=== PATIENT | male | born 1980 | race Caucasian/White ===

== ENCOUNTER 2019-07-26 11:49 | Observation (INO) | payer MEDICAID, SELFPAY ==
[2019-07-26] VITALS (10 sets, daily range): BP systolic 137–158; BP diastolic 78–109; PULSE 72–107; RESP 14–21; TEMP 36.6–36.8; O2SAT 93–96; BMI 40.3
--- NOTE | 2019-07-26 12:38 | USR_ITS ---
PROCEDURE INFORMATION: Exam: US Duplex Left Lower Extremity Veins, Limited Exam date and time: 07/26/2019 12:41 PM Age: 39 years old Clinical indication: Pain; Swelling (edema) of limb; Lower extremity, left; Leg, lower; Additional info: Swelling/pain TECHNIQUE: Imaging protocol: Real-time Duplex ultrasound of the Left Lower Extremity with 2-D santoro scale, color Doppler flow and spectral waveform analysis with image documentation. Limited exam focused on the left lower extremity veins. COMPARISON: No relevant prior studies available. FINDINGS: Left deep veins: Hypoechoic occlusive thrombus in the femoral, popliteal and peroneal veins. Age uncertain but could be subacute to acute. Left superficial veins: Unremarkable. Saphenous vein is patent without thrombus. Soft tissues: Unremarkable. US/CV venous duplex [facility] [id number] IMPRESSION: Hypoechoic occlusive thrombus in the femoral, popliteal and peroneal veins. Age uncertain but some could be subacute to acute. Addendum: Reports are labeled left, images labeled right.
--- NOTE | 2019-07-26 12:40 | CTR_ITS ---
PROCEDURE INFORMATION: Exam: CT Angiography Chest With Contrast Exam date and time: 07/26/2019 12:57 PM Age: 39 years old Clinical indication: Shortness of breath; Patient HX: HX of dvt and pe w recent med change now w lle pain and swelling with SOB; Additional info: Dyspnea, history dvt TECHNIQUE: Imaging protocol: Computed tomographic angiography of the chest with intravenous contrast. 3D rendering: MIP and/or 3D reconstructed images were created by the technologist. Radiation optimization: All CT scans at this facility use at least one of these dose optimization techniques: automated exposure control; mA and/or kV adjustment per patient size (includes targeted exams where dose is matched to clinical indication); or iterative reconstruction. Contrast material: OMNI 350; Contrast volume: 150 ml; Contrast route: 18G; COMPARISON: CTA Chest[place]ulmonary [place] [id number] 01/12/2019 9:53 PM RADIATION DOSE METRICS: Total DLP: 1258.4 mGy-cm FINDINGS: Pulmonary arteries: Apparent new (since 01/12/2019) PE right upper lobe (series 4, axial image 145). Chronic appearing right lung base PE, relatively unchanged. Chronic appearing left lung PE, stable or slightly improved. Aorta: Unremarkable. No aortic aneurysm. No aortic dissection. Lungs: 7 mm noncalcified subpleural nodule right lower lobe posteriorly is smaller, now measuring 5.5 mm. No acute infiltrate. Pleural space: Unremarkable. No pneumothorax. No pleural effusion. Heart: Unremarkable. No cardiomegaly. No pericardial effusion. Lymph nodes: Unremarkable. No enlarged lymph nodes. Bones/joints: Unremarkable. No acute fracture. Soft tissues: Unremarkable. CT/CT angio chest PE protcl [id number] IMPRESSION: 1.) Apparent new (since 01/12/2019) PE right upper lobe (series 4, axial image 145). Chronic appearing right lung base PE, relatively unchanged. Chronic appearing left lung PE, stable or slightly improved. Radiation Dose CTDIVOL = (mGy): DLP = 1258.4 (mGy-cm)
[2019-07-26 13:01] LABS: Basophils # 0.1 10^3/uL (0.0-0.1); Basophils % 0.8 %; Eosinophils # 0.2 10^3/uL (0.0-0.8); Eosinophils % 1.8 %; Hematocrit 45.7 % (42.0-52.0); Hemoglobin 14.9 g/dL (11.7-16.6); Lymphocytes # 2.1 10^3/uL (0.8-4.8); Lymphocytes % 22.8 %; Mean Corpuscular HGB Conc 32.6 g/dL (30.0-36.0); Mean Corpuscular Hemoglobin 28.4 pg (28.0-34.0); Mean Corpuscular Volume 87.2 fL (80-94); Mean Platelet Volume 9.7 fL (7.4-10.4); Monocytes # 0.6 10^3/uL (0.2-0.9); Monocytes % 6.8 %; Neutrophils # 6.2 10^3/uL (1.8-7.7); Neutrophils % 67.5 %; Nucleated Red Blood Cells % 0 %; Platelet Count 226 10^3/cmm (130-400); Red Blood Count 5.24 10^6/uL (4.1-5.3); Red Cell Distribution Width 12.7 % (12.1-15.1); White Blood Count 9.2 10^3/uL (4.0-10.0)
[2019-07-26 13:11] LABS: INR 0.99 (0.8-1.2)
[2019-07-26 13:16] LABS: Alanine Aminotransferase 25 U/L (0-41); Albumin Level 4.1 g/dL (3.5-5.2); Alkaline Phosphatase 90 IU/L (40-130); Anion Gap 18.4 (5-19); Aspartate Amino Transferase 13 U/L (0-40); Blood Urea Nitrogen 14 mg/dL (6-20); Calcium 8.9 mg/dL (8.5-10.5); Carbon Dioxide 25 mmol/L (22-29); Chloride 92 mmol/L (98-107); Globulin 2.9 g/dL (1.3-4.6); Glomerular Filtration Rate 83.2 mL/min (90-130); Glucose 491 mg/dL (65-115); Osmolality Calculated 290 mOsm/kg (285-295); Potassium 4.4 mmol/L (3.5-5.1); Sodium 131 mmol/L (136-145); Total Bilirubin 0.4 mg/dL (0.15-1.2)
[2019-07-26 13:21] LABS: D Dimer 5.91 ug/mIFEU (0-0.59)
[2019-07-26] MEDS: iohexol 350 mg/mL 100 mL Btl IV (13:53)
--- NOTE | 2019-07-26 13:55 | ED_ITS ---
HPI - Extremity Problem General: Chief complaint: Extremity Problem,Nontraumatic Stated complaint: L leg swelling/pain. Hx DVT Time Seen by Provider: 07/26/19 12:38 History of Present Illness: HPI Narrative: Mr. Chaparro is a nice 39-year-old male who comes in stating that he is having left leg pain and shortness of breath with exertion. The patient has a history of DVTs and PEs. He states approximately 1-1/2 to 2 weeks ago he was bridged from Eliquis to Coumadin and is now on 5 mg of Coumadin daily. He has not had his INR checked up to this point. Patient states he had to switch because he lost his insurance. He states he always has some swelling in his legs but the discomfort in the left leg is new. He denies any other symptoms at this time. Associated symptoms: Deny chest pain, fever(s) or rash Review of Systems Const: Denies: fever(s), chills, body aches, fatigue, malaise, night sweats or diaphoresis Eyes: Denies: change in vision, blurry vision or blind spots ENMT: Denies: throat pain, odynophagia, hoarseness, ear or mastoid pain, ear discharge, change in hearing or nasal discharge Card: Denies: chest pain, palpitations, irregular heart rhythm, lightheadedness, syncope, pre-syncope, dyspnea on exertion or orthopnea Resp: Reports: dyspnea; Denies: productive cough, non-productive cough, wheezing, hemoptysis or chest congestion GI: Denies: abdominal pain, nausea, vomiting, hematemesis, coffee ground emesis, heartburn, diarrhea, constipation, GI cramping, hematochezia or melena : Denies: flank pain, dysuria, urinary frequency, urinary urgency, oliguria, urinary incontinence or hematuria Musc: Reports: extremity pain; Denies: neck pain, back pain, extremity swelling, joint pain, joint swelling, joint redness, joint warmth or joint stiffness Skin/Breast: Denies: rash, pruritus, erythema, skin tenderness or jaundice Neuro: Denies: headache(s), numbness in extremities, weakness in extremities, sensory changes, lack of coordination, difficulty walking, dizziness, vertigo, confusion or Slurred speech present Endo: Denies: polyuria, polydipsia, tired all the time, cold intolerance, excessive sweating, flushing, hot flashes or heat intolerance Dawit/Lymph: Denies: easy bruising, easy bleeding, petechiae, purpura or enlarged lymph nodes All/Imm: Denies: urticaria, throat swelling, tongue swelling, facial swelling or acute wheezing PFSH ED PFSH: Medical History Acute pulmonary embolism 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 SOB (shortness of breath) Surgical History H/O lymph node excision History of angioplasty of vein Family History Other Cancer Heart disease Social History Smoking and tobacco status: current every day smoker cigarettes Packs smoked per day: 0.25 Years cigarettes smoked: 21 Alcohol intake: current Alcohol intake frequency: few times a month Current occupational status: employed History of recent travel: No Current gender identity: Male Physical Exam Const: COMMON NORMALS: no acute distress, patient oriented x3, no limitations, healthy appearing and well nourished EXAM LIMITATIONS: no altered mental status GENERAL APPEARANCE: cooperative, well kempt and well developed HENMT: COMMON NORMALS: normocephalic, atraumatic, hearing grossly normal bilaterally, external ears normal, EAC's normal, Normal external nose present and moist oral mucous membranes HEAD & SCALP: normal to inspection, normocephalic and atraumatic FACE & SINUS: normal facial exam and face symmetric NOSE: Normal external nose present and Normal nares present EXTERNAL EAR: Yes external ears normal EXTERNAL AUDITORY CANAL: EAC's normal MOUTH: Normal oral and palatal mucosa present, lip normal and tongue normal Eye: COMMON NORMALS: Equal, round and reactive pupils present, EOMs intact bilaterally, conjunctivae normal and no scleral icterus GENERAL EYE: appearance normal, both eyes and all related structures ALIGNMENT: Yes alignment normal PERIORBITAL: periorbital findings normal EYELID: eyelids normal CONJUNCTIVA: Yes conjunctivae normal SCLERA: sclerae normal PUPIL: Yes Equal, round and reactive pupils present Neck/C-Spine: COMMON NORMALS: full ROM, no lymphadenopathy, supple, no meningeal signs and no JVD GENERAL: Yes normal visual inspection and Yes trachea midline CERVICAL SPINE: Yes cervical ROM normal Chest: COMMONS NORMALS: normal inspection of the chest and normal palpation of entire chest wall Resp: COMMON NORMALS: normal respiratory effort, No retractions, No use of accessory muscles and clear to auscultation bilaterally EFFORT & INSPECTION: Yes able to speak in complete sentences AUSCULTATION: clear to auscultation bilaterally, no crackles, no rales, no rhonchi and no wheezes Cardio: COMMON NORMALS: no JVD, regular rate, regular rhythm, S1 normal heart sound present, S2 normal heart sound present, No gallops present (Cardio), No clicks present (Cardio), No murmurs present (Cardio) and No rub (Cardio) RATE: regular rate RHYTHM: regular rhythm HEART SOUNDS: S1 normal heart sound present, S2 normal heart sound present, no click, no gallops, no murmurs and no rubs GI: COMMON NORMALS: Soft to palpation, non-tender, No hepatosplenomegaly present and no masses PALPATION: Yes Soft to palpation, No Tenderness to palpation present (GI), No Guarding due to palpation present (GI), No Rigid due to palpation, Yes No hepatosplenomegaly present, No Hernia present, No Palpable mass present and No Pulsatile mass present : COMMON NORMALS: Yes no CVA tenderness BLADDER/KIDNEY EXAM: Yes no CVA tenderness Back/Pelvis: COMMON NORMALS: no CVA tenderness, thoracic and lumbar spine normal to inspection, no thoracic nor lumbar tenderness and thoraco-lumbar ROM normal Extremity: COMMON NORMALS: normal to inspection, full ROM, capillary refill normal, no joint enlargement, no clubbing, cyanosis or edema and no calf tenderness Neuro: COMMON NORMALS: patient oriented x3, CN's II-XII intact bilaterally, moves all extremities, no focal motor deficits and no sensory deficits noted MENINGEAL SIGNS: Yes no meningeal signs SPEECH: speech normal Psych: COMMON NORMALS: mental status grossly normal, Normal thought process present, cooperative, normal affect, speech normal and activity/motor behavior normal APPEARANCE: Yes well kempt SPEECH: Yes normal speech THOUGHT PROCESS: Normal thought process present Skin: COMMON NORMALS: no rashes or lesions noted, turgor normal, no jaundice, no petechiae and no mottling GENERAL SKIN EXAM: no rashes or lesions noted and turgor normal Course Vital Signs: Vital signs: Vital Signs Temperature 97.8 F 07/26/19 12:30 Pulse Rate 89 07/26/19 16:04 Respiratory Rate 16 07/26/19 16:04 Blood Pressure 156/106 07/26/19 16:04 Pulse Oximetry 95 07/26/19 12:30 MDM - Extremity (Nontraumatic) MDM Narrative: Medical decision making narrative: Mr. Chaparro is a 39-year-old male who comes in with a complaint of shortness of breath with exertion and left lower extremity pain. He has a new PE and DVT as well. He is a difficult historian but he changed from Eliquis to Coumadin and he has not been compliant in follow-up for his INR monitoring. He thinks he has Lovenox at home and he th inks he has an appointment for to follow-up but this is not certain. With evidence of right ventricular strain I did discuss the case with Dr. Saini the rehabilitation program coordinator at [facility] and based upon review she does not believe he is a candidate for systemic TPA or catheter directed TPA. She states though his findings of right ventricular strain are concerning and he needs to be optimized on Coumadin. 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 The case was reviewed with Dr. Cha and she was gracious enough to accept the patient she will come evaluate him. Lab Data: Attestation: I reviewed the patient's lab results. Labs: Lab Results 07/26/19 07/26/19 07/26/19 Range/Units 12:54 12:54 12:54 WBC 9.2 (4.0-10.0) 10^3/ uL RBC 5.24 (4.1-5.3) 10^6/u L Hgb 14.9 (11.7-16.6) g/dL Hct 45.7 (42.0-52.0) % MCV 87.2 (80-94) fL MCH 28.4 (28.0-34.0) pg MCHC 32.6 (30.0-36.0) g/dL RDW 12.7 (12.1-15.1) % Plt Count 226 (130-400) 10^3/c mm MPV 9.7 (7.4-10.4) fL Neut % (Auto) 67.5 % Lymph % (Auto) 22.8 % [place] % (Auto) 6.8 % Eos % (Auto) 1.8 % Baso % (Auto) 0.8 % Neut # (Auto) 6.2 (1.8-7.7) 10^3/u L Lymph # (Auto) 2.1 (0.8-4.8) 10^3/u L [place] # (Auto) 0.6 (0.2-0.9) 10^3/u L Eos # (Auto) 0.2 (0.0-0.8) 10^3/u L Baso # (Auto) 0.1 (0.0-0.1) 10^3/u L Nucleated RBC % (a uto) 0 % Nucleated RBCs # 0.0 /100WBC PT 13.40 H (10.5-13.3) SECO NDS INR 0.99 (0.8-1.2) D-Dimer 5.91 H (0-0.59) ug/mIFE U Sodium 131 L (136-145) mmol/L Potassium 4.4 (3.5-5.1) mmol/L Chloride 92 L (98-107) mmol/L Carbon Dioxide 25 (22-29) mmol/L Anion Gap 18.4 (5-19) BUN 14 (6-20) mg/dL Creatinine 1.0 (0.7-1.2) mg/dL GFR Calculation 83.2 L (90-130) mL/min Glucose 491 H (65-115) mg/dL Calculated Osmolal ity 290 (285-295) mOsm/k g Calcium 8.9 (8.5-10.5) mg/dL Total Bilirubin 0.4 (0.15-1.2) mg/dL AST 13 (0-40) U/L ALT 25 (0-41) U/L Alkaline Phosphata se 90 (40-130) IU/L Troponin T Baselin e (0-15) ng/mL Troponin T 120 Min [place] (0-15) ng/mL Delta Troponin T (0-10) ABS# NT-Pro-B Natriuret Pep (0-125) pg/mL Total Protein 7.0 (6.6-8.7) g/dL Albumin 4.1 (3.5-5.2) g/dL Globulin 2.9 (1.3-4.6) g/dL 07/26/19 07/26/19 07/26/19 Range/Units 12:54 12:54 15:06 WBC (4.0-10.0) 10^3/ uL RBC (4.1-5.3) 10^6/u L Hgb (11.7-16.6) g/dL Hct (42.0-52.0) % MCV (80-94) fL MCH (28.0-34.0) pg MCHC (30.0-36.0) g/dL RDW (12.1-15.1) % Plt Count (130-400) 10^3/c mm MPV (7.4-10.4) fL Neut % (Auto) % Lymph % (Auto) % [place] % (Auto) % Eos % (Auto) % Baso % (Auto) % Neut # (Auto) (1.8-7.7) 10^3/u L Lymph # (Auto) (0.8-4.8) 10^3/u L [place] # (Auto) (0.2-0.9) 10^3/u L Eos # (Auto) (0.0-0.8) 10^3/u L Baso # (Auto) (0.0-0.1) 10^3/u L Nucleated RBC % (a uto) % Nucleated RBCs # /100WBC PT (10.5-13.3) SECO NDS INR (0.8-1.2) D-Dimer (0-0.59) ug/mIFE U Sodium (136-145) mmol/L Potassium (3.5-5.1) mmol/L Chloride (98-107) mmol/L Carbon Dioxide (22-29) mmol/L Anion Gap (5-19) BUN (6-20) mg/dL Creatinine (0.7-1.2) mg/dL GFR Calculation (90-130) mL/min Glucose (65-115) mg/dL Calculated Osmolal ity (285-295) mOsm/k g Calcium (8.5-10.5) mg/dL Total Bilirubin (0.15-1.2) mg/dL AST (0-40) U/L ALT (0-41) U/L Alkaline Phosphata se (40-130) IU/L Troponin T Baselin e 6 (0-15) ng/mL Troponin T 120 Min [place] 6.00 (0-15) ng/mL Delta Troponin T 0 (0-10) ABS# NT-Pro-B Natriuret Pep 84 (0-125) pg/mL Total Protein (6.6-8.7) g/dL Albumin (3.5-5.2) g/dL Globulin (1.3-4.6) g/dL Imaging Data^: CTA Pulmonary Artery: Radiologist's impression: [place] [address] CT Scan Report Signed Patient: Uzile Chaparro Unit #: [id number] : 1980 Age/Sex: 39 / M ADM Date: 07/26/19 Loc: ER Room/Bed: Attending Dr: Ordering Provider/Ordering MD: America Gaona DO Date of Service: 07/26/19 Procedure(s): CT angio chest PE protcl [id number] Accession Number(s): [id number] Report Number: [id number] PROCEDURE INFORMATION: Exam: CT Angiography Chest With Contrast Exam date and time: 07/26/2019 12:57 PM Age: 39 years old Clinical indication: Shortness of breath; Patient HX: HX of dvt and pe w recent med change now w lle pain and swelling with SOB; Additional info: Dyspnea, history dvt TECHNIQUE: Imaging protocol: Computed tomographic angiography of the chest with intravenous contrast. 3D rendering: MIP and/or 3D reconstructed images were created by the technologist. Radiation optimization: All CT scans at this facility use at least one of these dose optimization techniques: automated exposure control; mA and/or kV adjustment per patient size (includes targeted exams where dose is matched to clinical indication); or iterative reconstruction. Contrast material: OMNI 350; Contrast volume: 150 ml; Contrast route: 18G; COMPARISON: CTA Chest-Pulmonary Emb 11500 01/12/2019 9:53 PM RADIATION DOSE METRICS: Total DLP: 1258.4 mGy-cm FINDINGS: Pulmonary arteries: Apparent new (since 01/12/2019) PE right upper lobe (series 4, axial image 145). Chronic appearing right lung base PE, relatively unchanged. Chronic appearing left lung PE, stable or slightly improved. Aorta: Unremarkable. No aortic aneurysm. No aortic dissection. Lungs: 7 mm noncalcified subpleural nodule right lower lobe posteriorly is smaller, now measuring 5.5 mm. No acute infiltrate. Pleural space: Unremarkable. No pneumothorax. No pleural effusion. Heart: Unremarkable. No cardiomegaly. No pericardial effusion. Lymph nodes: Unremarkable. No enlarged lymph nodes. Bones/joints: Unremarkable. No acute fracture. Soft tissues: Unremarkable. CT/CT angio chest PE protcl [id number] IMPRESSION: 1.) Apparent new (since 01/12/2019) PE right upper lobe (series 4, axial image 145). Chronic appearing right lung base PE, relatively unchanged. Chronic appearing left lung PE, stable or slightly improved. Radiation Dose CTDIVOL = (mGy): DLP = 1258.4 (mGy-cm) Dictated By: Yvon Fall MD Signed By: Yvon Fall MD Signed Date/Time: 07/26/191433 DD/ 1432 Ultrasound Echo: Radiologist's impression: [address] [address] Ultrasound Report Signed Patient: Uziel Chaparro Unit #: [id number] : 1980 Age/Sex: 39 / M ADM Date: 07/26/19 Loc: ER Room/Bed: Attending Dr: Ordering Provider/Ordering MD: America Gaona DO Date of Service: 07/26/19 Procedure(s): CV echo complete* [id number] Accession Number(s): [id number] Report Number: [id number] Uziel Chaparro Age: 39 Gender: M : 1980 Exam Date: 07/26/2019 14:50 Ordering Phys: America Gaona DO Technologist: Erin Bansal Exam Location: [facility] Indication: DYPSNEA BP: / HR: Rhythm: Sinus Technical Quality: Technically difficult study MEASUREMENTS (Male / Female) Normal Values 2D ECHO LV Diastolic Diameter PLAX 4.8 cm 4.2 - 5.9 / 3.9 - 5.3 cm LV Systolic Diameter PLAX 3.6 cm LV Chamber Size 3.5 cm IVS Diastolic Thickness 1.6 cm 0.6 - 1.0 / 0.6 - 0.9 cm IVS Systolic Thickness 2.1 cm LVPW Diastolic Thickness 1.0 cm 0.6 - 1.0 / 0.6 - 0.9 cm LVPW Systolic Thickness 1.6 cm RV Chamber Size 2.6 cm LVOT Diameter 2.0 cm LV Ejection Fraction 2D Teich 49.0 % LA Diameter 4.0 cm LA Width 3.0 cm LA Height 5.3 cm RA Width 2.8 cm RA Height 4.9 cm Aorta at Sinotubular Diameter 2.7 cm M-MODE LV Diastolic Diameter MM 6.2 cm 4.2 - 5.9 / 3.9 - 5.3 cm LV Systolic Diameter MM 4.7 cm LV Ejection Fraction MM Teich 47.9 % IVS Diastolic Thickness MM 1.1 cm 0.6 - 1.0 / 0.6 - 0.9 cm IVS Systolic Thickness MM 1.7 cm LVPW Diastolic Thickness MM 1.5 cm 0.6 - 1.0 / 0.6 - 0.9 cm LVPW Systolic Thickness MM 1.6 cm Aortic Annulus Diameter 3.9 cm LA Ao Ratio MM 1.0 MV E Point Septal Separation 0.8 cm DOPPLER AV Peak Velocity 102.0 cm/s LVOT Peak Velocity 95.0 cm/s AV Area Cont Eq vti 3.4 cm squared AV Area Cont Eq pk 3.0 cm squared MV Area PHT 3.3 cm squared Mitral E to A Ratio 1.0 MV E' Velocity 16.0 cm/s Mitral E to MV E' Ratio 3.7 Mitral E to LV E' Lateral Ratio 3.1 Mitral E to LV E' Septal Ratio 4.5 TV Peak E Velocity 52.0 cm/s Right Atrial Pressure 8.0 mmHg PV Peak Velocity 79.0 cm/s RV Acceleration Time 0.1 s RV Ejection Time 0.3 s RV AcT/ET 0.2 FINDINGS Left Ventricle Normal left ventricular size, systolic function and wall thickness, with no regional wall motion abnormalities. Normal left ventricular wall thickness. Diastolic dysfunction grade I. Right Ventricle The right ventricle is enarlged measuring more than 2.6cm in transverse diameter (>50% LV) with evidence of hypokinesesis and RV strain. Right Atrium The right atrium isdilated. IVC phasicity is absent. Left Atrium The left atrium is normal in size. Mitral Valve Structurally normal mitral valve without significant stenosis or prolapse. There is no mitral regurgitation. Aortic Valve Structurally normal aortic valve without significant sclerosis or stenosis. There is no aortic regurgitation. Tricuspid Valve Structurally normal tricuspid valve without significant stenosis or regurgitation. Pulmonary artery systolic pressure could not be accurately determined. Pulmonic Valve Structurally normal pulmonic valve without significant stenosis. There is no pulmonic regurgitation. Pericardium Normal pericardium without effusion. Aorta Normal ascending aorta dimension. CONCLUSIONS Normal left ventricular size and function. Diastolic dysfunction grade I. Right atrial enlargement. RV strain apparent with RV enlargement and hypokinesis. Structurally normal mitral aortic and tricuspid valves. Pulmonary pressures not able to be accurately estimated. Dr. Arvind Hussein MD (Electronically Signed) Final Date: 26 Jul 2019 15:59 S EKG Data^: EKG 1: Attestation: I personally reviewed and interpreted this EKG as follows: EKG interpretation date: 07/26/19 EKG interpretation time: 14:25 Interpretation: Normal sinus rhythm at 88 beats a minute, no acute ST or T wave changes. Discharge Plan Discharge Patient Disposition: Placed in Observation Clinical Impression: Pulmonary embolism, DVT (deep venous thrombosis) Condition: Stable Prescriptions: No Action atorvastatin 20 mg tablet 20 mg PO DAILY RF: 0 lisinopril 5 mg tablet 5 mg PO DAILY RF: 0 docusate sodium 100 mg tablet 100 mg PO DAILY RF: 0 warfarin 5 mg Tablet 5 mg PO DAILY RF: 0 Referrals: Edouard Manzano MD [Primary Care Provider] - Coding Level of Care Code ED Guidance Director for Chg Fwd Exam Comprehensive
--- NOTE | 2019-07-26 13:57 | ECG_ITS ---
Measurements Intervals [place] Rate: 82 P: 57 MS: 150 QRS: -3 QRSD: 97 T: 30 QT: 369 QTc: 433 SINUS RHYTHM No previous ECG available for comparison Electronically Signed On 07-27-2019 10:32:24 CDT by Arvind Hussein MD [email or web address]
--- NOTE | 2019-07-26 14:27 | USCV_ITS ---
Uziel Chaparro Age: 39 Gender: M : 1980 Exam Date: 07/26/2019 14:50 Ordering Phys: America Gaona DO Technologist: Erin Bansal [place] [facility] [place]: DYPSNEA BP: / HR: Rhythm: Sinus Technical Quality: Technically difficult study MEASUREMENTS (Male / Female) Normal Values 2D ECHO LV Diastolic Diameter PLAX 4.8 cm 4.2 - 5.9 / 3.9 - 5.3 cm LV Systolic Diameter PLAX 3.6 cm LV Chamber Size 3.5 cm IVS Diastolic Thickness 1.6 cm 0.6 - 1.0 / 0.6 - 0.9 cm IVS Systolic Thickness 2.1 cm LVPW Diastolic Thickness 1.0 cm 0.6 - 1.0 / 0.6 - 0.9 cm LVPW Systolic Thickness 1.6 cm RV Chamber Size 2.6 cm LVOT Diameter 2.0 cm LV Ejection Fraction 2D Teich 49.0 % LA Diameter 4.0 cm LA Width 3.0 cm LA Height 5.3 cm RA Width 2.8 cm RA Height 4.9 cm Aorta at Sinotubular Diameter 2.7 cm M-MODE LV Diastolic Diameter MM 6.2 cm 4.2 - 5.9 / 3.9 - 5.3 cm LV Systolic Diameter MM 4.7 cm LV Ejection Fraction MM Teich 47.9 % IVS Diastolic Thickness MM 1.1 cm 0.6 - 1.0 / 0.6 - 0.9 cm IVS Systolic Thickness MM 1.7 cm LVPW Diastolic Thickness MM 1.5 cm 0.6 - 1.0 / 0.6 - 0.9 cm LVPW Systolic Thickness MM 1.6 cm Aortic Annulus Diameter 3.9 cm LA Ao Ratio MM 1.0 MV E Point Septal Separation 0.8 cm DOPPLER AV Peak Velocity 102.0 cm/s LVOT Peak Velocity 95.0 cm/s AV Area Cont Eq vti 3.4 cm squared AV Area Cont Eq pk 3.0 cm squared MV Area PHT 3.3 cm squared Mitral E to A Ratio 1.0 MV E' Velocity 16.0 cm/s Mitral E to MV E' Ratio 3.7 Mitral E to LV E' Lateral Ratio 3.1 Mitral E to LV E' Septal Ratio 4.5 TV Peak E Velocity 52.0 cm/s Right Atrial Pressure 8.0 mmHg PV Peak Velocity 79.0 cm/s RV Acceleration Time 0.1 s RV Ejection Time 0.3 s RV AcT/ET 0.2 FINDINGS Left Ventricle Normal left ventricular size, systolic function and wall thickness, with no regional wall motion abnormalities. Normal left ventricular wall thickness. Diastolic dysfunction grade I. Right Ventricle The right ventricle is enarlged measuring more than 2.6cm in transverse diameter (>50% LV) with evidence of hypokinesesis and RV strain. Right Atrium The right atrium isdilated. IVC phasicity is absent. Left Atrium The left atrium is normal in size. Mitral Valve Structurally normal mitral valve without significant stenosis or prolapse. There is no mitral regurgitation. Aortic Valve Structurally normal aortic valve without significant sclerosis or stenosis. There is no aortic regurgitation. Tricuspid Valve Structurally normal tricuspid valve without significant stenosis or regurgitation. Pulmonary artery systolic pressure could not be accurately determined. Pulmonic Valve Structurally normal pulmonic valve without significant stenosis. There is no pulmonic regurgitation. Pericardium Normal pericardium without effusion. Aorta Normal ascending aorta dimension. CONCLUSIONS Normal left ventricular size and function. Diastolic dysfunction grade I. Right atrial enlargement. RV strain apparent with RV enlargement and hypokinesis. Structurally normal mitral aortic and tricuspid valves. Pulmonary pressures not able to be accurately estimated. Dr. Arvind Hussein MD (Electronically Signed) Final Date: 26 Jul 2019 15:59 S
[2019-07-26 14:38] LABS: Troponin(5th) Baseline 6 ng/mL (0-15)
--- NOTE | 2019-07-26 14:42 | PC.NURSE ---
Ultrasound at bedside
[2019-07-26 14:47] LABS: NT Pro B Type Natriuretic Pept 84 pg/mL (0-125)
[2019-07-26] MEDS: enoxaparin 30 mg/0.3 mL Syringe SUBCUT (15:25)
[2019-07-26] MEDS: enoxaparin 120 mg/0.8 mL Syringe SUBCUT (15:25)
[2019-07-26 15:30] LABS: Troponin 5 2HR Delta 0 ABS# (0-10)
[2019-07-26] MEDS: HYDROcodone-acetaminophen 5-325 mg Tablet 1 TAB PO (15:37)
--- NOTE | 2019-07-26 19:06 | PM.HP ---
Providers/Chief Complaint Admitting Physician: Gina Cha MD Primary Care Provider: Edouard Manzano MD Chief Complaint: Pulmonary Edema; DVT History of Present Illness Uziel Chaparro is a 39 year old male with PMHx of HTN, NIDDM type II, PE and prior LLE DVT s/p thrombolysis, Morbid obesity, Chronic smoker, presents with complaints of shortness of breath, left lower extremity pain and swelling that has been ongoing for the past several days. 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 When he symptoms started he had suspicion that he had a blood clot as he has had previous history of this. He reports being on Coumadin for anticoagulation though compliance is questionable. He has a rather complicated history of VTE, initially diagnosed with PE and DVT in 04/2018 during which time he underwent thrombectomy while in [place]. 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 Earlier today he drove from [place] for about 6 to 7 hours and came directly to the hospital. He got a little bit more concerned when he developed shortness of breath which is a new symptom for him. He has had a difficult history with anticoagulation per his report. Had initially been on Coumadin then was bridged to Eliquis which upon losing his insurance coverage she could no longer afford so was then transition back to Coumadin. He has a difficult time complying with diet restrictions and with his job is unable to get his INR regularly checked. He reports taking a 5 mg dose daily typically around 8:30 PM, last dose was taken yesterday. INR today 0.99. He continues to be a smoker, half a pack a day. He denies any alcohol use. Unclear etiology for hypercoagulability, had negative work-up done in January 2019 which was his last admission to our facility for the same. He followed up with Dr. Castellanos in March 2019 at which point he was to continue Eliquis, compression stocking use and follow-up in 3 months. His previous echo in January showed moderate pulmonary hypertension and he was to have follow-up imaging to monitor this. He is not oxygen dependent at baseline. Has had a chronic non-productive cough, denies fever/chills, abdominal pain, blood in his urine or stool, recent trauma or fall. He would prefer to resume Eliquis but cannot afford it at this time so is agreeable to bridging with therapeutic Lovenox and Coumadin. Has received his first dose of Lovenox in the ER. Other work-up is unremarkable including CBC, chemistry other than hyponatremia with a sodium of 131 and hyperglycemia with a blood sugar of 491. Last A1c in January was 7.0 and patient is not on any anti-hyperglycemic agents. D-dimer is elevated at 5.91. Imaging shows new right upper lobe PE with chronic appearing left-sided and right lower lobe PEs. Echo shows evidence of right ventricular heart strain. Venous duplex shows extensive occlusive thrombus involving femoral, popliteal and peroneal veins on the left, superficial veins appears unremarkable. He is resting on the stretcher in the ER during my evaluation. Vital signs are stable, he is currently requiring 2 L NC. He has been admitted to initiate bridging anticoagulation and to monitor respiratory status in light of new oxygen requirement and new PE, DVT. Review of Systems Const: Denies: fever(s) or chills Eyes: Denies: change in vision ENMT: Denies: odynophagia Card: Reports: swelling of feet/ankles (LLE > R) and leg pain with exertion (LLE); Denies: chest pain or lightheadedness Resp: Reports: dyspnea and non-productive cough GI: Denies: abdominal pain, nausea, vomiting, hematemesis or hematochezia : Denies: dysuria or urinary frequency Musc: Reports: extremity pain (LLE), extremity swelling (LLE) and muscle cramps (LLE); Denies: back pain Skin/Breast: Denies: rash Neuro: Reports: difficulty walking; Denies: numbness in extremities or weakness in extremities Psych: Denies: anxiety Medications/Allergies Home Medications Medication Instructions Recorded Confirmed Last Taken Type atorvastatin 20 mg tablet 20 mg PO DAILY 03/24/19 07/26/19 Unknown History docusate sodium 100 mg tablet 100 mg PO DAILY 03/24/19 07/26/19 07/25/19 History lisinopril 5 mg tablet 5 mg PO DAILY 03/24/19 07/26/19 07/26/19 History warfarin 5 mg PO DAILY 07/26/19 07/26/19 07/25/19 History Allergies Allergy/AdvReac Type Severity Reaction Status Date / Time nickel Allergy ADR-Itching Verified 07/26/19 12:34 rofecoxib [From Vioxx] Allergy Unknown Verified 03/25/19 11:55 PFSH Acute PFSH: Medical History (Updated 07/26/19 @ 19:29 by Gina Cha MD) Acute pulmonary embolism 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 Hypertension Morbid obesity Non-insulin dependent diabetes mellitus SOB (shortness of breath) Surgical History (Updated 07/26/19 @ 19:11 by Gina Cha MD) H/O lymph node excision History of angioplasty of vein Left lower extremity Family History Other Cancer Heart disease Social History (Updated 07/26/19 @ 19:16 by Gina Cha MD) Smoking and tobacco status: current every day smoker cigarettes Packs smoked per day: 0.5 Years cigarettes smoked: 21 Alcohol intake: current Alcohol intake frequency: few times a month Substance/Drug Use: former Date of last use: 03/2017 Household members: spouse Marital status: Current occupational status: employed 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 History of recent travel: No Current gender identity: Male Vitals/I&O/Wt Last Vital Signs Temp 97.8 F 07/26/19 12:30 Pulse 86 07/26/19 18:33 Resp 18 07/26/19 18:33 BP 153/97 07/26/19 18:33 Pulse Ox 95 07/26/19 18:33 Weight last 48 hrs Weight 154.221 kg Physical Exam Const: COMMON NORMALS: no acute distress, patient oriented x3 and alert GENERAL APPEARANCE: cooperative and comfortable; not ill appearing NUTRITIONAL APPEARANCE: obese morbidly obese ORIENTATION/CONSCIOUSNESS: Yes awake HENMT: COMMON NORMALS: normocephalic, atraumatic, hearing grossly normal bilaterally and moist oral mucous membranes HEAD & SCALP: normocephalic and atraumatic TEETH & GINGIVA: Yes poor dentition Eye: COMMON NORMALS: Equal, round and reactive pupils present, EOMs intact bilaterally and conjunctivae normal CONJUNCTIVA: Yes conjunctivae normal PUPIL: Yes Equal, round and reactive pupils present Neck/C-Spine: COMMON NORMALS: full ROM GENERAL: Yes normal visual inspection and Yes trachea midline OTHER: -short, thick neck Chest: CHEST: Yes Symmetrical chest wall rise Resp: COMMON NORMALS: normal respiratory effort, No retractions, No use of accessory muscles and clear to auscultation bilaterally EFFORT & INSPECTION: Yes able to speak in complete sentences, Yes symmetric chest movement and No tachypneic AUSCULTATION: clear to auscultation bilaterally OTHER: -on 2 L NC Cardio: COMMON NORMALS: regular rate, regular rhythm, S1 normal heart sound present, S2 normal heart sound present and No murmurs present (Cardio) RATE: regular rate RHYTHM: regular rhythm HEART SOUNDS: S1 normal heart sound present and S2 normal heart sound present GI: COMMON NORMALS: Normal to inspection, nondistended, normoactive bowel sounds present, Soft to palpation and non-tender INSPECTION: Yes central obesity PALPATION: Yes Soft to palpation Back/Pelvis: COMMON NORMALS: thoracic and lumbar spine normal to inspection Extremity: COMMON NORMALS: normal to inspection and full ROM GENERAL: Yes calf tenderness (LLE, + Vivian's sign) and Yes edema (LLE, non-pitting) Neuro: COMMON NORMALS: patient oriented x3, moves all extremities, no focal motor deficits and no sensory deficits noted Psych: COMMON NORMALS: mental status grossly normal, Normal thought process present, cooperative, normal affect and speech normal SPEECH: Yes normal speech THOUGHT PROCESS: Normal thought process present Skin: COMMON NORMALS: no rashes or lesions noted, no jaundice, no petechiae and no mottling GENERAL SKIN EXAM: no rashes or lesions noted Data : 07/26/19 12:54 07/26/19 12:54 A&P Assessment and plan (1) Pulmonary embolism: -Presented with shortness of breath, has prior history of PE status post thrombectomy on 04/2018 -Had initially been treated with Coumadin then bridged to Eliquis which she is unable to continue due to lack of insurance, reportedly has been trying to bridge from Eliquis to Coumadin. -Suspect non-compliance -CTA showing new PE in RUL, chronic appearing PE in right lung base (unchanged) and left lung (stable/slightly improved) -D-dimer-5.91, INR-0.99 -received therapeutic dose of Lovenox in ED, will continue this and bridge with coumadin -daily INR -does not need to stay in the hospital for entire bridging process as he has experience taking both medications -had a good response to Eliquis and is working on alternative insurance coverage to be able to resume this -Had hypercoagulable work-up done during admission in 01/2019 which was unremarkable -Risk factors for VTE include chronic smoking, morbid obesity, decreased mobility based on 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 Castellanos -based on job as logging truck driver has problem getting regular INR checks -supplemental oxygen as needed, monitor respiratory status Status: Acute Qualifiers: Acute cor pulmonale presence: with acute cor pulmonale Chronicity: acute Pulmonary embolism type: other Qualified Code(s): I26.09 - Other pulmonary embolism with acute cor pulmonale (2) DVT (deep venous thrombosis): -Has noted deep vein occlusive thrombus involving femoral, popliteal and peroneal veins. Superficial veins appear unremarkable - has prior history of DVT in the left lower extremity, has had thrombolysis done -Anticoagulation as noted above Status: Acute Qualifiers: Affected thrombotic vein of extremity: other lower extremity vein Chronicity: acute DVT location: lower extremity Laterality: left Qualified Code(s): I82.492 - Acute embolism and thrombosis of other specified deep vein of left lower extremity (3) Hypertension: -Continue to monitor vital signs -Resume ACEi Status: Chronic Qualifiers: Hypertension type: essential hypertension Qualified Code(s): I10 - Essential (primary) hypertension (4) Non-insulin dependent diabetes mellitus: -last A1c-7.0, order repeat -noted significant hyperglycemia, Accucheks, ISS, hypoglycemia precautions -consistent carb diet as tolerated Status: Chronic (5) Morbid obesity: -BMI-41 kg/m2 Status: Chronic Additional A&P Information -Chronic smoker -gentle IVF hydration -up with assist, fall precautions -DVT ppx not needed as on therapeutic lovenox -Dispo: home -Code status: FULL code Attestations Medical Necessity Statement*: Uziel Chaparro's hospital stay will be less than 2 midnights for management of acute on chronic PE, left lower extremity DVT with need for initiation of bridging anticoagulation and monitoring of respiratory status given oxygen requirement. Time Spent in Patient Care: Greater than 35 minutes (>than 50% of time spent in counselling and/or direct pt care on unit). Coding Level of Care Code Acute Field Map Technician for Chg Fwd Diagnoses Pulmonary embolism I26.09 Acute cor pulmonale presence: with acute cor pulmonale Chronicity: acute Pulmonary embolism type: other DVT (deep venous thrombosis) I82.492 Affected thrombotic vein of extremity: other lower extremity vein Chronicity: acute DVT location: lower extremity Laterality: left Hypertension I10 Hypertension type: essential hypertension Non-insulin dependent diabetes mellitus Morbid obesity E66.01
[2019-07-26 19:22] LABS: Troponin 5 6HR Delta 0 ng/L (0-12)
--- NOTE | 2019-07-26 19:46 | PC.NURSE ---
Patient received from ed via wheelchair. Patient able to ambulate to bed with standby assist. Mild to moderate pain reported to left leg/groin. Patient on the phone ordering food for delivery. Instructed patient on need for Lovenox and warfarin. Patient stated, I take my warfarin every night at 8:25 pm. Patient expressed understanding of need to be compliant with medications.
--- NOTE | 2019-07-26 19:57 | ECG_ITS ---
Measurements Intervals [place] Rate: 88 P: 50 MN: 147 QRS: 1 QRSD: 95 T: 29 QT: 352 QTc: 427 SINUS RHYTHM No previous ECG available for comparison Electronically Signed On 07-27-2019 10:35:12 CDT by Arvind Hussein MD [email or web address]
[2019-07-26 20:28] LABS: Glucose Point of Care 321 mg/dL (70-110)
[2019-07-26] MEDS: sodium chloride 0.9% 1,000 ML 75 ML IV (20:51)
[2019-07-26] MEDS: warfarin 5 mg Tablet PO (20:51)
[2019-07-27] MEDS: morphine 4 mg/mL SDV 1 mL 2 MG IVP ×2 (00:22→08:47)
[2019-07-27 02:39] LABS: Estmated Average Glucose 275; Hemoglobin A1C 11.2 % (4.0-6.0)
[2019-07-27] MEDS: enoxaparin 100 mg/mL Syringe 150 MG SUBCUT (03:34)
[2019-07-27 03:35] VITALS: BP 128/77; PULSE 88; RESP 20; TEMP 36.5; O2SAT 96
[2019-07-27 06:19] LABS: Basophils # 0.1 10^3/uL (0.0-0.1); Basophils % 0.6 %; Eosinophils # 0.2 10^3/uL (0.0-0.8); Eosinophils % 2.4 %; Hematocrit 42.4 % (42.0-52.0); Hemoglobin 13.8 g/dL (11.7-16.6); Lymphocytes % 36.6 %; Mean Corpuscular HGB Conc 32.5 g/dL (30.0-36.0); Mean Corpuscular Hemoglobin 28.2 pg (28.0-34.0); Mean Corpuscular Volume 86.7 fL (80-94); Mean Platelet Volume 9.7 fL (7.4-10.4); Monocytes # 0.6 10^3/uL (0.2-0.9); Monocytes % 7.1 %; Neutrophils # 4.3 10^3/uL (1.8-7.7); Neutrophils % 52.7 %; Nucleated Red Blood Cells % 0 %; Platelet Count 242 10^3/cmm (130-400); Red Blood Count 4.89 10^6/uL (4.1-5.3); Red Cell Distribution Width 12.8 % (12.1-15.1); White Blood Count 8.2 10^3/uL (4.0-10.0)
[2019-07-27 06:22] LABS: INR 1.02 (0.8-1.2)
[2019-07-27 06:32] LABS: Anion Gap 14.2 (5-19); Blood Urea Nitrogen 17 mg/dL (6-20); Calcium 9.2 mg/dL (8.5-10.5); Carbon Dioxide 28 mmol/L (22-29); Chloride 99 mmol/L (98-107); Glomerular Filtration Rate 83.2 mL/min (90-130); Glucose 315 mg/dL (65-115); Osmolality Calculated 292 mOsm/kg (285-295); Potassium 4.2 mmol/L (3.5-5.1); Sodium 137 mmol/L (136-145)
[2019-07-27 06:55] LABS: Glucose Point of Care 288 mg/dL (70-110)
[2019-07-27 07:29] VITALS: PULSE 83; O2SAT 91
[2019-07-27 08:00] VITALS: BP 117/80; PULSE 86; RESP 19; TEMP 36.7; O2SAT 94
[2019-07-27] MEDS: docusate sodium 100 mg Capsule PO (08:46)
[2019-07-27] MEDS: atorvastatin 40 mg Tablet 20 MG PO (08:46)
[2019-07-27 08:47] VITALS: RESP 15
[2019-07-27] MEDS: lisinopril 5 mg Tablet PO (08:47)
--- NOTE | 2019-07-27 09:09 | PC.CHAP ---
Pastoral Care Encounter/Spiritual Assessment Type of Contact [] Declined tractor mechanic apprentice visit [] Patient/Family/Request visit [] Outpatient visit [] Follow-up visit [] Physician referral [] Code/Alert [x] Routine visit [] Staff referral [] Actively dying [] Patient sleeping [] Family support [] [] Out of room [] Palliative care [] [] Receiving care in room [] Pre-surgical visit [] Trauma [] Long length of stay [] ICU visit [] Other: Relational/Emotional Strength [] Patient feels connected with others/family/visitors/staff [] Distress [] Loneliness/isolation [] Abandonment Spirituality of Patient [] Person of Karen [] Attends Oriental Orthodox of their Karen [] Believes in Prayer [] Reads Bible or Druze materials [] There are Spiritual issues to be addressed Delivery Technician Interventions [x] Prayer [] Active listening [] Non-anxious presence [] Spiritual/emotional support [] Crisis/trauma care [] Spiritual counseling [] Bereavement support [] Provided bereavement packet [] Provided Bible/devotional materials [] Provided toy/stuffed animal, coloring book to patient or family member [] Provided Communion [] Anointing/[place] [] Salvation [x] Completed spiritual assessment [] Other: Impact on Illness or Injury [] Angry [] Fearful [] Anxious [] Often cries [] Exhaustion [] Unable to work [] Unable to attend cheondoism [] Unable to walk/stand [] Unable to read [] Unable to drive [] Unable to eat/drink [] Unable to sleep [] Unable to be with family [] Patient intubated [] Other: Summary Patient resting well. Time spent with patient 10min
[2019-07-27] MEDS: sodium chloride 0.9% 1,000 ML 75 ML IV (10:11)
[2019-07-27 11:00] VITALS: BP 116/84; PULSE 85; RESP 16; TEMP 36.6; O2SAT 92
[2019-07-27 11:56] LABS: Glucose Point of Care 242 mg/dL (70-110)
[2019-07-27] MEDS: apixaban 5 mg Tablet PO (13:04)
--- NOTE | 2019-07-27 13:41 | P.DS_ITS ---
Discharge Providers Date of Admission: 07/26/19 17:48 Date of Discharge: July 27, 2019 Attending Provider at Admission: Gina Cha MD Attending Provider at Discharge: Gina Cha MD Primary Care Provider: Edouard Manzano MD Diagnoses at Discharge Discharge Diagnosis (1) Pulmonary embolism: Status: Acute Problem details: -Presented with shortness of breath, has prior history of PE status post thrombectomy on 04/2018 -Had initially been treated with Coumadin then bridged to Eliquis which she is unable to continue due to lack of insurance, reportedly has been trying to bridge from Eliquis to Coumadin. 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 Coumadin is not a good long-term option for the patient as he is unable to get INR checks and has difficulty complying with dietary restrictions. He has been resumed on Eliquis with $10 co-pay card provided and initial prescription sent to [facility]. 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 Superficial veins appear unremarkable - has prior history of DVT in the left lower extremity, has had thrombolysis done -Anticoagulation as noted above Qualifiers: Affected thrombotic vein of extremity: other lower extremity vein Chronicity: acute DVT location: lower extremity Laterality: left Qualified Code(s): I82.492 - Acute embolism and thrombosis of other specified deep vein of left lower extremity (3) Hypertension: Status: Chronic Problem details: -Continue to monitor vital signs -Continue ACEi Qualifiers: Hypertension type: essential hypertension Qualified Code(s): I10 - Essential (primary) hypertension (4) Non-insulin dependent diabetes mellitus: Status: Chronic Problem details: -poorly controlled, A1c-11.2 -noted significant hyperglycemia, Accucheks, ISS, hypoglycemia precautions -consistent carb diet as tolerated -has been unable to tolerate metformin in the past (significant diarrhea, abdominal pain, N/V); will initiate glipizide (cost issues) which PCP will need to titrate (5) Morbid obesity: Status: Chronic Problem details: -BMI-41 kg/m2 Other Information Additional DC diagnoses/information: -Chronic smoker Reason for Visit Reason for Visit: Reason For Visit: Pulmonary Edema; DVT Hospital Course Hospital Course: Patient was admitted to the cardiac stepdown unit and placed on telemetry monitoring. He initially required supplemental oxygen support but has since been weaned off and maintained on room air with no noted respiratory distress. He was noted to have acute on chronic PE and left lower extremity occlusive DVT. He was treated with therapeutic anticoagulation, on both Lovenox and Coumadin due to need for bridging with noted INR of 0.99 initially. INR today is 1.02. 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 He has been on Eliquis in the past but due to lack of insurance was unable to afford it any longer and was transitioned to Coumadin. He has difficulty not only with INR checks but also with complying with dietary restrictions. He has been provided with a $10 co-pay card and resumed on Eliquis per his preference. He is working on getting insurance through his . Eliquis provides a much better option particularly in terms of comp liance. He was also noted to have poorly controlled diabetes with an A1c of 11.2. 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 Weight loss is strongly encouraged and due to limited financial resources will be prescribed glipizide. He states that he has a glucometer and is encouraged to monitor his blood glucose at least once per day. He may require titration of his glipizide dose for more optimal glycemic control which can be followed up on by his primary care provider. He will also be referred to Dr. Castellanos particularly in light of recurrent PE. Smoking cessation is also strongly encouraged. I have provided some basic education on diabetes particularly in terms of nutrition. Patient will be discharged home this afternoon, prescription is sent to [facility] pharmacy to be picked up tomorrow and patient encouraged to activate co-pay card as soon as possible. In light of recurrent VTE patient will require lifelong anticoagulation. Discharge Summary: -Patient to follow-up with primary care physician within 1 week. He will require continued follow-up on anticoagulation and oral hypoglycemic medication titration -Patient to follow-up with Dr. Castellanos in 1 month Physical Exam Const: COMMON NORMALS: no acute distress, patient oriented x3 and alert GENERAL APPEARANCE: cooperative and comfortable; not ill appearing NUTRITIONAL APPEARANCE: obese morbidly obese ORIENTATION/CONSCIOUSNESS: Yes awake HENMT: COMMON NORMALS: normocephalic, atraumatic, hearing grossly normal bilaterally and moist oral mucous membranes HEAD & SCALP: normocephalic and atraumatic TEETH & GINGIVA: Yes poor dentition Eye: COMMON NORMALS: Equal, round and reactive pupils present, EOMs intact bilaterally and conjunctivae normal CONJUNCTIVA: Yes conjunctivae normal PUPIL: Yes Equal, round and reactive pupils present Neck/C-Spine: COMMON NORMALS: full ROM GENERAL: Yes normal visual inspection and Yes trachea midline OTHER: -short, thick neck Chest: CHEST: Yes Symmetrical chest wall rise Resp: COMMON NORMALS: normal respiratory effort, No retractions, No use of accessory muscles and clear to auscultation bilaterally EFFORT & INSPECTION: Yes able to speak in complete sentences, Yes symmetric chest movement and No tachypneic AUSCULTATION: clear to auscultation bilaterally OTHER: -on RA Cardio: COMMON NORMALS: regular rate, regular rhythm, S1 normal heart sound present, S2 normal heart sound present and No murmurs present (Cardio) RATE: regular rate RHYTHM: regular rhythm HEART SOUNDS: S1 normal heart sound present and S2 normal heart sound present GI: COMMON NORMALS: Normal to inspection, nondistended, normoactive bowel sounds present, Soft to palpation and non-tender INSPECTION: Yes central obesity PALPATION: Yes Soft to palpation Back/Pelvis: COMMON NORMALS: thoracic and lumbar spine normal to inspection Extremity: COMMON NORMALS: normal to inspection and full ROM GENERAL: Yes calf tenderness (LLE, + Vivian's sign) and Yes edema (LLE, non-pitting) Neuro: COMMON NORMALS: patient oriented x3, moves all extremities, no focal motor deficits and no sensory deficits noted SENSORIUM/ORIENTATION: Yes alert Psych: COMMON NORMALS: mental status grossly normal, Normal thought process present, cooperative, normal affect and speech normal SPEECH: Yes normal speech THOUGHT PROCESS: Normal thought process present Skin: COMMON NORMALS: no rashes or lesions noted, no jaundice, no petechiae and no mottling GENERAL SKIN EXAM: no rashes or lesions noted Discharge Data Data Completed and Pending: Completed Studies During Hospitalization Category Date Time Status CT angio chest PE protcl [id number] Stat Cat Scan 07/26/19 12:40 Completed CV echo complete* [id number] Stat Ultrasound 07/26/19 14:27 [place] [id number] Urgent Ultrasound 07/26/19 12:38 Completed Labs from last 24 hours 07/27/19 07/27/19 07/27/19 11:20 06:31 06:00 WBC RBC Hgb Hct MCV MCH MCHC RDW Plt Count MPV Neut % (Auto) Lymph % (Auto) [place] % (Auto) Eos % (Auto) Baso % (Auto) Neut # (Auto) Lymph # (Auto) [place] # (Auto) Eos # (Auto) Baso # (Auto) Nucleated RBC % (a uto) Nucleated RBCs # PT 13.70 H INR 1.02 Sodium Potassium Chloride Carbon Dioxide Anion Gap BUN Creatinine GFR Calculation Glucose POC Glucose 242 288 Estimat Average Gl ucose Hemoglobin A1c Calculated Osmolal ity Calcium Troponin I 6 Hour Troponin I Hi Sens Del Troponin T Baselin e Troponin T 120 Min [place] Delta Troponin T NT-Pro-B Natriuret Pep 07/27/19 07/27/19 07/26/19 06:00 06:00 20:25 WBC 8.2 RBC 4.89 Hgb 13.8 Hct 42.4 MCV 86.7 MCH 28.2 MCHC 32.5 RDW 12.8 Plt Count 242 MPV 9.7 Neut % (Auto) 52.7 Lymph % (Auto) 36.6 [place] % (Auto) 7.1 Eos % (Auto) 2.4 Baso % (Auto) 0.6 Neut # (Auto) 4.3 Lymph # (Auto) 3.0 [place] # (Auto) 0.6 Eos # (Auto) 0.2 Baso # (Auto) 0.1 Nucleated RBC % (a uto) 0 Nucleated RBCs # 0.0 PT INR Sodium 137 Potassium 4.2 Chloride 99 Carbon Dioxide 28 Anion Gap 14.2 BUN 17 Creatinine 1.0 GFR Calculation 83.2 L Glucose 315 H POC Glucose 321 Estimat Average Gl ucose Hemoglobin A1c Calculated Osmolal ity 292 Calcium 9.2 Troponin I 6 Hour Troponin I Hi Sens Del Troponin T Baselin e Troponin T 120 Min [place] Delta Troponin T NT-Pro-B Natriuret Pep 07/26/19 07/26/19 07/26/19 18:54 15:06 12:54 WBC RBC Hgb Hct MCV MCH MCHC RDW Plt Count MPV Neut % (Auto) Lymph % (Auto) [place] % (Auto) Eos % (Auto) Baso % (Auto) Neut # (Auto) Lymph # (Auto) [place] # (Auto) Eos # (Auto) Baso # (Auto) Nucleated RBC % (a uto) Nucleated RBCs # PT INR Sodium Potassium Chloride Carbon Dioxide Anion Gap BUN Creatinine GFR Calculation Glucose POC Glucose Estimat Average Gl ucose 275 Hemoglobin A1c 11.2 H Calculated Osmolal ity Calcium Troponin I 6 Hour 6.00 Troponin I Hi Sens Del 0 Troponin T Baselin e Troponin T 120 Min [place] 6.00 Delta Troponin T 0 NT-Pro-B Natriuret Pep 07/26/19 07/26/19 12:54 12:54 WBC RBC Hgb Hct MCV MCH MCHC RDW Plt Count MPV Neut % (Auto) Lymph % (Auto) [place] % (Auto) Eos % (Auto) Baso % (Auto) Neut # (Auto) Lymph # (Auto) [place] # (Auto) Eos # (Auto) Baso # (Auto) Nucleated RBC % (a uto) Nucleated RBCs # PT INR Sodium Potassium Chloride Carbon Dioxide Anion Gap BUN Creatinine GFR Calculation Glucose POC Glucose Estimat Average Gl ucose Hemoglobin A1c Calculated Osmolal ity Calcium Troponin I 6 Hour Troponin I Hi Sens Del Troponin T Baselin e 6 Troponin T 120 Min [place] Delta Troponin T NT-Pro-B Natriuret Pep 84 Vitals: Last Vital Signs Temp 97.8 F 07/27/19 11:00 Pulse 85 07/27/19 11:00 Resp 16 07/27/19 11:00 BP 116/84 07/27/19 11:00 Pulse Ox 92 07/27/19 11:00 Discharge Plan Discharge Patient Disposition: Home, Self-Care Condition: Stable Prescriptions: New Eliquis 5 mg Tablet 5 mg PO BID 30 Days Qty: 60 RF: 0 glipizide 2.5 mg tablet extended release 24hr 2.5 mg PO BID 30 Days Qty: 60 RF: 0 Continued atorvastatin 20 mg tablet 20 mg PO DAILY RF: 0 lisinopril 5 mg tablet 5 mg PO DAILY RF: 0 docusate sodium 100 mg tablet 100 mg PO DAILY RF: 0 Discontinued warfarin 5 mg Tablet 5 mg PO 2030 RF: 0 Discharge Orders: Discharge Order (Routine); Ordered 07/27/19 Ordered By: Gina Cah Referrals: Edouard Manzano MD [Primary Care Provider] - 4-7 days (Post hospital discharge follow up. Now uncontrolled diabetic, d/c on glipizide (cost issues, unable to tolerate metformin previously) and on Eliquis ($10 co-pay card provided)) Lety Castellanos MD [Physician] - 1 month (Follow up on acute on chronic PE, LLE DVT; on Eliquis.) Discharge Diet: Diabetic Discharge Activity: Increase activity as tolerated Patient Instructions: Type 2 Diabetes, Diabetes and Diet, Glipizide (By mouth), Apixaban (By mouth), Pulmonary Embolism (DC), Pulmonary Embolism (GEN), How to Stop Smoking (DC), How to Check Your Blood Sugar (DC), Deep Venous Thrombosis (DC), Deep Venous Thrombosis (GEN), Meal Planning with the Plate Model (DC), Quitting Smoking Activity Restrictions/Additional Instructions: -Please remember to activate co-pay card to continue to cover Eliquis -Smoking cessation recommended -Please monitor blood sugar at least once per day, keep a log for review with your primary care provider -Please refer to [employer] website (www.diabetes.org) for more information including nutrition, exercise -Please monitor for bleeding as you are taking blood thinners; and seek medical attention immediately if noted prolonged nosebleeding, blood in urine or stool, coughing up blood Discharge Attestations Time Spent in Discharge Care*: greater than 30 min Specific Discharge Activities: Specific discharge activities: educating patient, discussing with pcp/other providers, discussing with returned case inspector/social workers/dc planners, documenting/other paperwork and evaluating patient/reviewing data Time Spent in Smoking Cessation: Time spent discussing smoking cessation with patient: 3 to 10 minutes Details of Smoking Cessation Education: Patient counseled on need for smoking cessation particularly in light of recurrent VTE and with underlying poorly controlled diabetes and morbid obesity is at risk for multiple medical comorbidities. He reports that he is currently working on cutting down, currently smoking half a pack a day. Declines medication assistance at this time. Status at Discharge: Cognitive status at discharge: cognitively intact , Behavioral status at discharge: cooperative , Functional status at discharge: independent ambulation Overall status at discharge: patient is progressing back to baseline Quality Metrics Clinical Quality Measures During this hospital stay, did patient experience: VTE Contraindication to Overlap Therapy: Overlap treatment not indicated (On Eliquis) VTE Discharge Education: Education about anticoagulant therapy/Care Notes given, Medication side effects education and Follow-up arranged Deep Vein Thrombosis/Pulmonary Embolism Present on Admission: Yes Coding Level of Care Code Acute Animal [facility]eder for [facility] Fwd Diagnoses Pulmonary embolism I26.09 Acute cor pulmonale presence: with acute cor pulmonale Chronicity: acute Pulmonary embolism type: other DVT (deep venous thrombosis) I82.492 Affected thrombotic vein of extremity: other lower extremity vein Chronicity: acute DVT location: lower extremity Laterality: left Hypertension I10 Hypertension type: essential hypertension Non-insulin dependent diabetes mellitus Morbid obesity E66.01
[2019-07-27 13:50] VITALS: BP 116/84; PULSE 85; RESP 16; TEMP 36.6; O2SAT 92
--- NOTE | 2019-07-27 14:00 | PC.NURSE ---
pt given discharge instructions, verbalized an understanding. hand outs on diabetic management and food choices printed for pt education from [employer]. pt took eliquis coupon card with him upon discharge. iv removed, tip intact.
== END 2019-07-27 14:15 | disposition home or self-care (01) ==
LOC: ER 18:22 → CSU 18:23
PROVIDERS: Emergency Medicine; Admitting Provider Family Medicine; PCP Family Medicine; Visit Provider Family Medicine
DX: I26.09 Other pulmonary embolism with acute cor pulmonale (principal); I10 Essential (primary) hypertension; E66.01 Morbid (severe) obesity due to excess calories; Z68.41 Body mass index [BMI] 40.0-44.9, adult; E11.9 Type 2 diabetes mellitus without complications; Z86.718 Personal history of other venous thrombosis and embolism; Z79.01 Long term (current) use of anticoagulants
CPT/HCPCS: 12345; 36415; 36416; 71275; 80048; 80053; 82962; 83036; 83880; 84484; 85025; 85378; 85610; 93005; 93010; 93306; 93971; 96360; 96361; 96372; 96375; 99283; 99285; G0378; J1650; J1815; J2270; J7030; Q9967

== ENCOUNTER 2019-10-09 08:58 | Outpatient (CLI) | payer MEDICAID, SELFPAY ==
--- NOTE | 2019-10-09 08:45 | USCV_ITS ---
Uziel Chaparro Age: 39 Gender: M : 1980 Exam Date: 10/09/2019 09:20 Ordering Phys: Lety Castellanos MD Technologist: Nedra Mccoy [place] [facility] [place]ication: RECURRENT DVT HISTORY: DVT. PROCEDURES: Venous duplex imaging was performed in bilateral lower extremities. The following venous structures were evaluated: common femoral vein, profunda vein, proximal portion of the greater saphenous vein, superficial femoral vein, and the popliteal vein. In addition, the posterior tibial and peroneal trunk were evaluated. Serial compression, augmentation maneuvers, and spectral Doppler flow evaluation were performed. FINDINGS: No evidence of DVT seen in any vessel visualized of the right extremity at this time. Evidence of acute occlusive deep vein thrombosis in the left common femoral to popliteal veins with abnormal flow dynamics. Dr. Castellanos was notified and talked with patient. CONCLUSIONS Extensive occlusive DVT left lower extremity. No DVT right lower extremity. Dr. Tory Casillas DO (Electronically Signed) Final Date: 09 October 2019 10:02 S
== END 2019-10-09 08:59 | disposition home or self-care (01) ==
LOC: RAD 09:01
PROVIDERS: PCP Family Medicine; Visit Provider Internal Medicine Critical Care Medicine
DX: I82.492 Acute embolism and thrombosis of other specified deep vein of left lower extremity (principal)
CPT/HCPCS: 93970

== ENCOUNTER 2019-11-18 16:00 | Outpatient (CLI) | payer MEDICAID, SELFPAY | END 2019-11-18 16:01 | disposition home or self-care (01) | LOC: SLEEP 11-19 13:50 | PROVIDERS: PCP Family Medicine; Visit Provider Nurse Practitioner Family | DX: G47.10 Hypersomnia, unspecified (principal) | CPT/HCPCS: G0399 ==

== ENCOUNTER → 2019-12-16 14:49 | Outpatient (BNVA) | payer MEDICAID, SELFPAY | PROVIDERS: PCP Family Medicine; Referring Provider Family Medicine; Visit Provider Specialist | DX: M25.561 Pain in right knee (principal); M25.562 Pain in left knee | CPT/HCPCS: 73565 ==

== ENCOUNTER 2020-02-02 20:00 | Outpatient (CLI) | payer MEDICAID, SELFPAY | END 2020-02-02 20:01 | disposition home or self-care (01) | LOC: SLEEP 02-03 12:21 | PROVIDERS: PCP Family Medicine; Visit Provider Nurse Practitioner Family | DX: G47.33 Obstructive sleep apnea (adult) (pediatric) (principal) | CPT/HCPCS: 95811 ==

== ENCOUNTER 2020-06-15 09:19 | Outpatient (CLI) | payer MEDICAID, SELFPAY ==
--- NOTE | 2020-06-15 09:30 | USCV_ITS ---
Uziel Chaparro Age: 40 Gender: M : 1980 Exam Date: 06/15/2020 09:45 Ordering Phys: Lety Castellanos MD Technologist: Logan Claire Exam Location: [facility] [place] Indication: HX OF PE BP: 143 / 85 HR: 77 Rhythm: Sinus Technical Quality: Adequate MEASUREMENTS (Male / Female) Normal Values 2D ECHO LV Diastolic Diameter PLAX 4.6 cm 4.2 - 5.9 / 3.9 - 5.3 cm LV Systolic Diameter PLAX 3.0 cm IVS Diastolic Thickness 0.9 cm 0.6 - 1.0 / 0.6 - 0.9 cm IVS Systolic Thickness 1.4 cm LVPW Diastolic Thickness 1.3 cm 0.6 - 1.0 / 0.6 - 0.9 cm LVPW Systolic Thickness 1.5 cm LVOT Diameter 2.1 cm LV Ejection Fraction 2D Teich 64.7 % LV Ejection Fraction MOD 2C 75.9 % LV Ejection Fraction 2C AL 75.8 % LA Diameter 4.4 cm LA Width 4.2 cm LA Height 4.2 cm RA Width 4.3 cm RA Height 5.0 cm M-MODE LV Diastolic Diameter MM 5.5 cm 4.2 - 5.9 / 3.9 - 5.3 cm LV Systolic Diameter MM 4.0 cm LV Ejection Fraction MM Teich 50.6 % IVS Diastolic Thickness MM 1.3 cm 0.6 - 1.0 / 0.6 - 0.9 cm IVS Systolic Thickness MM 1.8 cm LVPW Diastolic Thickness MM 1.3 cm 0.6 - 1.0 / 0.6 - 0.9 cm LVPW Systolic Thickness MM 2.3 cm RV Diastolic Diameter MM 1.9 cm Aortic Annulus Diameter 4.0 cm LA Ao Ratio MM 1.3 MV E Point Septal Separation 0.8 cm DOPPLER AV Peak Velocity 110.0 cm/s LVOT Peak Velocity 84.0 cm/s AV Area Cont Eq vti 2.9 cm squared AV Area Cont Eq pk 2.7 cm squared MV Area PHT 5.0 cm squared Mitral E to A Ratio 1.0 MV E' Velocity 32.5 cm/s Mitral E to MV E' Ratio 5.7 Mitral E to LV E' Lateral Ratio 5.3 Mitral E to LV E' Septal Ratio 6.3 TR Peak Velocity 140.0 cm/s TR Peak Gradient 7.8 mmHg TV Peak E Velocity 85.0 cm/s Right Atrial Pressure 3.0 mmHg Pulmonary Artery Systolic Pressu 10.8 mmHg PV Peak Velocity 115.0 cm/s FINDINGS Left Ventricle Normal left ventricular cavity size. Normal left ventricular systolic function. No regional wall motion abnormalities. Left ventricular ejection fraction is estimated at 60 %. Grade I/IV diastolic dysfunction (abnormal relaxation filling pattern), normal to mildly elevated filling pressures. Right Ventricle The right ventricle is normal in size and function. Right Atrium The right atrium is normal in size. Left Atrium The left atrium is normal in size. Mitral Valve Structurally normal mitral valve without significant stenosis or prolapse. There is no mitral regurgitation. Aortic Valve Structurally normal aortic valve without significant sclerosis or stenosis. There is no aortic regurgitation. Tricuspid Valve Structurally normal tricuspid valve without significant stenosis or regurgitation. Pulmonary artery systolic pressure is normal. Pulmonic Valve Structurally normal pulmonic valve without significant stenosis. There is no pulmonic regurgitation. Pericardium Normal pericardium without effusion. Aorta Normal ascending aorta dimension. CONCLUSIONS 1-Normal left ventricular cavity size. Normal left ventricular systolic function. No regional wall motion abnormalities. Left ventricular ejection fraction is estimated at 60 %. Grade I/IV diastolic dysfunction (abnormal relaxation filling pattern), normal to mildly elevated filling pressures. 2-There is no pericardial effusion. 3-No significant valve abnormalities. 4-Pulmonary artery systolic pressure is within normal limits. 5-Right atrial pressure is around 5 mm of mercury. 6-When compared to the prior echocardiogram dated 26 Jul 2019 there appeared to be no right ventricle strain, right ventricle size and function is normal now. Doris West MD (Electronically Signed) Final Date: 15 June 2020 17:32 S
== END 2020-06-15 09:20 | disposition home or self-care (01) ==
LOC: RAD 09:22
PROVIDERS: PCP Nurse Practitioner Family; Visit Provider Internal Medicine Critical Care Medicine
DX: I26.09 Other pulmonary embolism with acute cor pulmonale (principal)
CPT/HCPCS: 93306

== ENCOUNTER 2020-07-07 14:17 | Outpatient (CLI) | payer MEDICAID, SELFPAY ==
--- NOTE | 2020-07-07 14:26 | XR_ITS ---
WS: [id number] Left shoulder, 3 views, 07/07/2020 Clinical Data: PAIN IN LEFT SHOULDER Comparison: None. Findings: No fractures or dislocations are seen. The AC joint is normal. The adjacent left clavicle, left scapu la and ribs are normal. The soft tissues are unremarkable. XR/XR shoulder LT min 2V* [id number] Impression: Negative left shoulder.
== END 2020-07-07 14:18 | disposition home or self-care (01) ==
PROVIDERS: PCP Nurse Practitioner Family; Visit Provider Nurse Practitioner Family
DX: M25.512 Pain in left shoulder (principal)
CPT/HCPCS: 73030

== ENCOUNTER → 2020-09-07 09:32 | Outpatient (BNVA) | payer MEDICAID, SELFPAY | PROVIDERS: PCP Nurse Practitioner Family; Visit Provider Nurse Practitioner Family | DX: J06.9 Acute upper respiratory infection, unspecified (principal); Z20.822 Contact with and (suspected) exposure to COVID-19 | CPT/HCPCS: 87635 ==

== ENCOUNTER 2020-09-09 12:26 | Emergency (ER) | payer MEDICAID, SELFPAY ==
[2020-09-09 12:49] VITALS: BP 127/92; PULSE 84; RESP 20; TEMP 36.5; O2SAT 100; BMI 38.2
[2020-09-09 12:56] VITALS: BP 127/92; PULSE 81; RESP 18; O2SAT 98
--- NOTE | 2020-09-09 12:59 | W.ED.NAVMDI ---
HPI - Nausea/Vomiting/Diarrhea General: Chief complaint: Abdominal Pain Stated complaint: NAUSEA/ VOMITING Time Seen by Provider: 09/09/20 12:54 Source: patient Mode of arrival: EMS Limitations: no limitations History of Present Illness: HPI Narrative: Patient is a 40-year-old male who presents to ED today via EMS for complaint of nausea, vomiting, diarrhea. He also complains of a headache. When asked about abdominal pain he tells me he feels like his abdomen is rolling . He has not noticed any blood to his stool or emesis. He does not complain of dark or tarry stools. No poor food exposures that he is aware of. No sick contacts. He does state he had a PCR COVID performed 2 days ago but has not heard results. No fevers. Patient states at the max he is having 10 diarrhea stools in a 24 hour period. MD elicited complaint: nausea, vomiting and diarrhea Onset (ago): day(s) Description of vomiting: watery Description of diarrhea: watery Associated nausea: Yes Location of pain: Diffuse Quality: cramping Exacerbating factors: none Relieving factors: none Associated symtoms: Reports headache(s) and nausea; Denies change in vision, chest pain, dysuria, fatigue, malaise, palpitations or syncope Review of Systems Const: Denies: fever(s), chills, body aches, fatigue or malaise Eyes: Denies: change in vision or blurry vision ENMT: Reports: nasal discharge; Denies: throat pain or odynophagia Card: Denies: chest pain, palpitations, irregular heart rhythm, edema, swelling of feet/ankles, lightheadedness, syncope, pre-syncope, dyspnea on exertion or orthopnea Resp: Denies: dyspnea, productive cough, wheezing, hemoptysis or chest congestion GI: Reports: nausea, vomiting, diarrhea and GI cramping; Denies: hematemesis, hematochezia or melena : Denies: flank pain or dysuria Musc: Denies: neck pain or back pain Skin/Breast: Denies: rash Neuro: Reports: headache(s); Denies: numbness in extremities, weakness in extremities or sensory changes [facility] ED PFSH: Medical History (Updated 09/09/20 @ 16:19 by GAYLE Baxter) Acute pulmonary embolism 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 Hypertension -Continue to monitor vital signs -Continue ACEi Morbid obesity -BMI-41 kg/m2 Non-insulin dependent diabetes mellitus -poorly controlled, A1c-11.2 -noted significant hyperglycemia, Accucheks, ISS, hypoglycemia precautions -consistent carb diet as tolerated -has been unable to tolerate metformin in the past (significant diarrhea, abdominal pain, N/V); will initiate glipizide (cost issues) which PCP will need to titrate SOB (shortness of breath) Surgical History H/O lymph node excision History of angioplasty of vein Left lower extremity Family History Other Cancer Heart disease Social History Smoking and tobacco status: current every day smoker cigarettes Years cigarettes smoked: 21 Quit status (tobacco): considering quitting Smoking risk assessment/counseling performed?: Yes Alcohol intake: current Alcohol intake frequency: few times a month Counseling given: No Counseling given: No Lives independently: Yes Household members: spouse Marital status: Current occupational status: employed 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 History of recent travel: No Current gender identity: Male Physical Exam Const: COMMON NORMALS: no acute distress, patient oriented x3, no limitations and alert NUTRITIONAL APPEARANCE: obese ORIENTATION/CONSCIOUSNESS: Yes awake, Yes oriented to person, Yes oriented to place and Yes oriented to time HENMT: COMMON NORMALS: normocephalic and atraumatic HEAD & SCALP: normocephalic and atraumatic Resp: COMMON NORMALS: normal respiratory effort and clear to auscultation bilaterally AUSCULTATION: clear to auscultation bilaterally Cardio: COMMON NORMALS: regular rate and regular rhythm RATE: regular rate RHYTHM: regular rhythm GI: COMMON NORMALS: Normal to inspection, nondistended, normoactive bowel sounds present, Soft to palpation, non-tender, No hepatosplenomegaly present and no masses PALPATION: Yes Soft to palpation and Yes No hepatosplenomegaly present OTHER: non-surgical abdomen Extremity: GENERAL: Yes normal exam except as noted Neuro: BENY COMA SCALE: document GCS findings Hammon coma scale eye opening: Spontaneous Beny coma scale verbal response: Orientated Hammon coma scale motor response: Obey commands Beny coma scale total score: 15 COMMON NORMALS: patient oriented x3, CN's II-XII intact bilaterally, moves all extremities, no focal motor deficits and no sensory deficits noted SENSORIUM/ORIENTATION: Yes alert, Yes oriented to person, Yes oriented to place and Yes oriented to time Skin: COMMON NORMALS: no rashes or lesions noted GENERAL SKIN EXAM: no rashes or lesions noted Course Vital Signs: Vital signs: Vital Signs Temperature 97.7 F 09/09/20 12:49 Pulse Rate 81 09/09/20 12:56 Respiratory Rate 18 09/09/20 12:56 Blood Pressure 127/92 09/09/20 12:56 Pulse Oximetry 98 09/09/20 12:56 MDM - Nausea/Vomiting/Diarrhea MDM Narrative: Medical decision making narrative: Patient has not had any vomiting throughout his visit however he has had 2-3 episodes of diarrhea. He clinically appears non-ill and nontoxic. Vital signs are stable. He does have a fairly significant white count of 20.4. There is no evidence for infection on his CT scan-there was possibility for mesenteric adenitis. Rapid COVID negative. His PCR performed two days ago was negative as well. We will obtain stool cultures and I told him I would follow up on this tomorrow when they return. Will treat with anti-emetics at home. Recommend follow up with PCP early next week. Return to ED precautions given. Lab Data: Labs: Lab Results 09/09/20 09/09/20 09/09/20 Range/Units 13:30 13:41 13:41 WBC 20.4 H (4.0-10.0) 10^3/ uL RBC 5.81 H (4.1-5.3) 10^6/u L Hgb 16.8 H (11.7-16.6) g/dL Hct 50.6 (42.0-52.0) % MCV 87.1 (80-94) fL MCH 28.9 (28.0-34.0) pg MCHC 33.2 (30.0-36.0) g/dL RDW 13.4 (12.1-15.1) % Plt Count 295 (130-400) 10^3/c mm MPV 10.2 (7.4-10.4) fL Neut % (Auto) 80.2 % Lymph % (Auto) 12.8 % [place] % (Auto) 5.0 % Eos % (Auto) 1.2 % Baso % (Auto) 0.4 % Neut # (Auto) 16.37 H (1.8-7.7) 10^3/u L Lymph # (Auto) 2.6 (0.8-4.8) 10^3/u L [place] # (Auto) 1.0 H (0.2-0.9) 10^3/u L Eos # (Auto) 0.3 (0.0-0.8) 10^3/u L Baso # (Auto) 0.1 (0.0-0.1) 10^3/u L Nucleated RBC % (a uto) 0 % Nucleated RBCs # 0.0 /100WBC Sodium 137 (136-145) mmol/L Potassium 3.8 (3.5-5.1) mmol/L Chloride 98 (98-107) mmol/L Carbon Dioxide 26 (22-29) mmol/L Anion Gap 16.8 (5-19) BUN 18 (6-20) mg/dL Creatinine 0.8 (0.7-1.2) mg/dL GFR Calculation 107.1 (90-130) mL/min Glucose 156 H (65-115) mg/dL Calculated Osmolal ity 289 (285-295) mOsm/k g Calcium 9.4 (8.5-10.5) mg/dL Total Bilirubin 0.8 (0.15-1.2) mg/dL AST 16 (0-40) U/L ALT 27 (0-41) U/L Alkaline Phosphata se 81 (40-130) IU/L Total Protein 7.6 (6.6-8.7) g/dL Albumin 4.4 (3.5-5.2) g/dL Globulin 3.2 (1.3-4.6) g/dL Lipase 24 (13-60) U/L Urine Color (Yellow) Urine Appearance (CLEAR) Urine pH (5-7) Ur Specific Gravit y (1.005-1.030) Urine Protein (Negative) Urine Glucose (UA) (Normal) Urine Ketones (Negative) Urine Blood (Negative) Urine Nitrate (Negative) Urine Bilirubin (Negative) Urine Urobilinogen (Negative) mg/dL Ur Leukocyte Samantha ase (Negative) Urine RBC (0-2) /hpf Urine WBC (0-5) /hpf Ur Squamous Epith Cells (0-5) /hpf Amorphous Sediment Urine Bacteria (NONE) /hpf Urine Mucus /hpf SARS-CoV-2 Ag (Rap id) Negative (Negative) 09/09/20 Range/Units 13:41 WBC (4.0-10.0) 10^3/ uL RBC (4.1-5.3) 10^6/u L Hgb (11.7-16.6) g/dL Hct (42.0-52.0) % MCV (80-94) fL MCH (28.0-34.0) pg MCHC (30.0-36.0) g/dL RDW (12.1-15.1) % Plt Count (130-400) 10^3/c mm MPV (7.4-10.4) fL Neut % (Auto) % Lymph % (Auto) % [place] % (Auto) % Eos % (Auto) % Baso % (Auto) % Neut # (Auto) (1.8-7.7) 10^3/u L Lymph # (Auto) (0.8-4.8) 10^3/u L [place] # (Auto) (0.2-0.9) 10^3/u L Eos # (Auto) (0.0-0.8) 10^3/u L Baso # (Auto) (0.0-0.1) 10^3/u L Nucleated RBC % (a uto) % Nucleated RBCs # /100WBC Sodium (136-145) mmol/L Potassium (3.5-5.1) mmol/L Chloride (98-107) mmol/L Carbon Dioxide (22-29) mmol/L Anion Gap (5-19) BUN (6-20) mg/dL Creatinine (0.7-1.2) mg/dL GFR Calculation (90-130) mL/min Glucose (65-115) mg/dL Calculated Osmolal ity (285-295) mOsm/k g Calcium (8.5-10.5) mg/dL Total Bilirubin (0.15-1.2) mg/dL AST (0-40) U/L ALT (0-41) U/L Alkaline Phosphata se (40-130) IU/L Total Protein (6.6-8.7) g/dL Albumin (3.5-5.2) g/dL Globulin (1.3-4.6) g/dL Lipase (13-60) U/L Urine Color [place] (Yellow) Urine Appearance Clear (CLEAR) Urine pH 5 (5-7) Ur Specific Gravit y 1.020 (1.005-1.030) Urine Protein 1+ H (Negative) Urine Glucose (UA) Norm (Normal) Urine Ketones Negative (Negative) Urine Blood Neg (Negative) Urine Nitrate Negative (Negative) Urine Bilirubin 1+ H (Negative) Urine Urobilinogen 1 H (Negative) mg/dL Ur Leukocyte Samantha ase Negative (Negative) Urine RBC None (0-2) /hpf Urine WBC None (0-5) /hpf Ur Squamous Epith Cells 5-10 H (0-5) /hpf Amorphous Sediment Not Reportable Urine Bacteria 1+ H (NONE) /hpf Urine Mucus 3+ /hpf SARS-CoV-2 Ag (Rap id) (Negative) Discharge Plan Discharge Patient Disposition: Home Clinical Impression: Gastroenteritis Condition: Stable Prescriptions: New ondansetron HCl [Zofran] 4 mg tablet 4 mg PO Q6H PRN (Reason: nausea and vomiting) Qty: 14 RF: 0 No Action atorvastatin 20 mg tablet 20 mg PO DAILY RF: 0 lisinopril 5 mg tablet 10 mg PO DAILY RF: 0 Januvia 25 mg tablet 25 mg PO DAILY RF: 0 glipizide 5 mg tablet 5 mg PO DAILY RF: 0 Eliquis 5 mg tablet 5 mg PO BID RF: 0 (DME) comp.stocking,thigh,long,large Misc See Rx Instructions .ROUTE .MEDSUPPLY Qty: 2 RF: 0 aspirin 81 mg tablet,delayed release (DR/EC) 81 mg PO DAILY RF: 0 fluoxetine 20 mg tablet 20 mg PO DAILY RF: 0 Chantix Starting Month Box 0.5 mg (11)- 1 mg (42) tablets,dose pack See Rx Instructions .ROUTE .COMPLEX RF: 0 Men's Daily 1 cap PO DAILY RF: 0 Discharge Orders: Discharge ED (Routine); Ordered 09/09/20 Ordered By: Slime Palumbo Referrals: Karen Badillo NP [Primary Care Provider] - Patient Instructions: Gastroenteritis (ED), Acute Nausea and Vomiting (ED) Activity Restrictions/Additional Instructions: As we discussed please continue to push fluids along with rest. [place] liquid diet advancing as tolerated. Please follow-up with primary care early next week for reevaluation of symptoms persist. You need to return to the emergency department for worsening vomiting or diarrhea, fevers, severe abdominal pain, or any other concerns you may have. As we discussed if anything is abnormal on your stool cultures I will contact you. Coding Level of Care Code ED Community Development Worker for Jack Fwradha Exam Comprehensive
[2020-09-09 13:47] LABS: Basophils # 0.1 10^3/uL (0.0-0.1); Basophils % 0.4 %; Eosinophils # 0.3 10^3/uL (0.0-0.8); Eosinophils % 1.2 %; Hematocrit 50.6 % (42.0-52.0); Hemoglobin 16.8 g/dL (11.7-16.6); Lymphocytes # 2.6 10^3/uL (0.8-4.8); Lymphocytes % 12.8 %; Mean Corpuscular HGB Conc 33.2 g/dL (30.0-36.0); Mean Corpuscular Hemoglobin 28.9 pg (28.0-34.0); Mean Corpuscular Volume 87.1 fL (80-94); Mean Platelet Volume 10.2 fL (7.4-10.4); Neutrophils # 16.37 10^3/uL (1.8-7.7); Neutrophils % 80.2 %; Nucleated Red Blood Cells % 0 %; Platelet Count 295 10^3/cmm (130-400); Red Blood Count 5.81 10^6/uL (4.1-5.3); Red Cell Distribution Width 13.4 % (12.1-15.1); White Blood Count 20.4 10^3/uL (4.0-10.0)
--- NOTE | 2020-09-09 13:51 | CT_ITS ---
WS: [id number] CT ABDOMEN AND PELVIS WITH CONTRAST HISTORY: N/V/D TECHNIQUE: Imaging performed of the abdomen and pelvis with IV contrast. Single phase imaging of the abdomen. Coronal and sagittal reformats are submitted. All CT scans at [facility] use at least one of these dose optimization techniques: automated exposure control; mA and/or kV adjustment per patient size (includes targeted exams where dose is matched to clinical indication); or iterativ e reconstruction. IV CONTRAST: Omnipaque 300; 95 mL IV. Oral contrast: No DLP: 2105.26 mGy.cm COMPARISON: 11/30/2008 Lower thorax: Granulomata in the posterior RIGHT lower lobe. Heart is normal size. No significant hia lorne hernia. Well circumscribed homogeneous mass within the subcutaneous soft tissues of the lower tho rax measures 3.2 x 4.3 cm. No adjacent inflammation in this mass was present in 2008 with mild increa se in size. Liver/biliary system: Normal size with no intrahepatic dilatation. Gallbladder: Normal. No gallstones or wall thickening. No pericholecystic fluid. Pancreas: Normal size pancreas and pancreatic duct. No adjacent inflammation. Spleen: Normal size spleen. No mass or infarct. Adrenal glands: Normal. Right kidney: Normal. Left kidney: Normal. Aorta: Mild atherosclerosis with no aneurysm. Lymphadenopathy: No enlarged lymph nodes. There are numerous small mesenteric and RIGHT lower quadran t lymph nodes which are all less than a centimeter. Free fluid: None. GI tract: Normal appendix. No GI tract obstruction or inflammation. No significant diverticular disea se. Abdominal wall: Unremarkable abdominal wall. No hernia. Pelvis: No free fluid or adenopathy within the pelvis. Bones: Unremarkable. CT/CT abdomen pelvis w con* [id number] IMPRESSION: 1. No renal stone or obstruction. 2. Normal appendix. 3. A few small, subcentimeter RIGHT lower quadrant mesenteric lymph nodes. Con jazz musician mesenteric adenitis as a possible etiology. 4. Benign but increasing subcutaneous soft tissue mass along the inferior ches t wall. Mass has been present since 2008 but increasing in size. Probably repre sents a sebaceous cyst.
[2020-09-09 14:00] VITALS: BP 149/103; PULSE 86; RESP 16; O2SAT 98
[2020-09-09 14:11] LABS: Alanine Aminotransferase 27 U/L (0-41); Albumin Level 4.4 g/dL (3.5-5.2); Alkaline Phosphatase 81 IU/L (40-130); Blood Urea Nitrogen 18 mg/dL (6-20); Calcium 9.4 mg/dL (8.5-10.5); Carbon Dioxide 26 mmol/L (22-29); Globulin 3.2 g/dL (1.3-4.6); Glomerular Filtration Rate 107.1 mL/min (90-130); Glucose 156 mg/dL (65-115); Lipase 24 U/L (13-60); Osmolality Calculated 289 mOsm/kg (285-295); Sodium 137 mmol/L (136-145); Total Bilirubin 0.8 mg/dL (0.15-1.2); Total Protein 7.6 g/dL (6.6-8.7)
[2020-09-09 14:28] LABS: Anion Gap 16.8 (5-19); Potassium 3.8 mmol/L (3.5-5.1)
[2020-09-09 14:29] LABS: Aspartate Amino Transferase 16 U/L (0-40); Chloride 98 mmol/L (98-107)
[2020-09-09 14:53] LABS: Add Urine Culture? No; Add Urine Microscopic? YES; Bacteria Urine 1+ /hpf; Bilirubin Urine 1+ (Negative); Blood Urine Neg (Negative); Glucose Urine UA Norm (Normal); Ketones Urine Negative (Negative); Leukocyte Esterase Urine Negative (Negative); Mucus Urine 3+ /hpf; Nitrate Urine Negative (Negative); Protein Urine 1+ (Negative); Urine Appearance Clear (CLEAR); Urine Color Orange (Yellow); Urobilinogen Urine 1 mg/dL (Negative); pH Urine 5 (5-7)
[2020-09-09 14:54] LABS: SARS Covid-2 Antigen Negative (Negative)
[2020-09-09] MEDS: sodium chloride 0.9% 1,000 ML 999 ML IV (14:55)
[2020-09-09] MEDS: metoclopramide 5 mg/mL SDV 2 mL 10 MG IVP (14:55)
[2020-09-09 15:00] VITALS: BP 133/95; PULSE 85; RESP 18; O2SAT 99
[2020-09-09] MEDS: iohexol 300 mg/mL 100 mL Btl IV (15:47)
[2020-09-09 16:00] VITALS: BP 118/71; PULSE 78; RESP 18; O2SAT 96
[2020-09-09 16:59] VITALS: BP 125/80; PULSE 84; RESP 18; O2SAT 98
== END 2020-09-09 17:01 | disposition home or self-care (01) ==
PROVIDERS: Emergency Provider Physician Assistant; PCP Nurse Practitioner Family
DX: K52.9 Noninfective gastroenteritis and colitis, unspecified (principal); Z79.01 Long term (current) use of anticoagulants; Z79.84 Long term (current) use of oral hypoglycemic drugs; Z79.82 Long term (current) use of aspirin; Z86.711 Personal history of pulmonary embolism; I10 Essential (primary) hypertension; E11.9 Type 2 diabetes mellitus without complications; F17.210 Nicotine dependence, cigarettes, uncomplicated; Z20.822 Contact with and (suspected) exposure to COVID-19
CPT/HCPCS: 74177; 80053; 81001; 82274; 83630; 83690; 85025; 87426; 87493; 87506; 96361; 96374; 99284; J2765; J7030; Q9967

== ENCOUNTER 2020-12-27 11:14 | Outpatient (CLI) | payer MEDICAID, SELFPAY ==
--- NOTE | 2020-12-27 11:25 | XR_ITS ---
WS: [id number] Exam: XR chest 2V* [id number] Date/Time of Exam: 12/27/2020 11:25 AM Reason For Exam: COUGH/SHORTNESS OF BREATH Comparison 01/19/2019. Findings: The lungs are clear and fully expanded. Costophrenic angles are sharp. No infiltrates. Bronchovascula r relief appears normal. Cardiac silhouette is unremarkable. Bony elements are intact. XR/XR chest 2V* [id number] IMPRESSION: Unremarkable chest radiograph.
== END 2020-12-27 11:15 | disposition home or self-care (01) ==
PROVIDERS: PCP Nurse Practitioner Family; Visit Provider Nurse Practitioner Family
DX: R06.02 Shortness of breath (principal); R05.9 Cough, unspecified
CPT/HCPCS: 71046

== ENCOUNTER → 2021-01-09 14:53 | Outpatient (BNVA) | payer MEDICAID, SELFPAY | PROVIDERS: PCP Nurse Practitioner Family; Visit Provider Nurse Practitioner | DX: M25.512 Pain in left shoulder (principal); S49.92XA Unspecified injury of left shoulder and upper arm, initial encounter; W17.89XA Other fall from one level to another, initial encounter | CPT/HCPCS: 73030 ==

== ENCOUNTER 2021-03-24 16:13 | Emergency (ER) | payer MEDICAID, SELFPAY ==
[2021-03-24 16:36] VITALS: BP 115/80; PULSE 85; RESP 16; TEMP 36.7; O2SAT 95; BMI 38.1
[2021-03-24 19:22] LABS: Basophils # 0.1 10^3/uL (0.0-0.1); Basophils % 0.5 %; Eosinophils # 0.2 10^3/uL (0.0-0.8); Eosinophils % 2.3 %; Hematocrit 48.5 % (42.0-52.0); Hemoglobin 16.1 g/dL (11.7-16.6); Lymphocytes # 3.1 10^3/uL (0.8-4.8); Lymphocytes % 29.9 %; Mean Corpuscular HGB Conc 33.2 g/dL (30.0-36.0); Mean Corpuscular Hemoglobin 28.6 pg (28.0-34.0); Mean Corpuscular Volume 86.1 fl (80-94); Mean Platelet Volume 9.7 fL (7.4-10.4); Monocytes # 0.6 10^3/uL (0.2-0.9); Monocytes % 6.3 %; Neutrophils # 6.22 10^3/uL (1.8-7.7); Neutrophils % 60.8 %; Nucleated Red Blood Cells % 0 %; Platelet Count 288 10^3/cmm (130-400); Red Blood Count 5.63 10^6/uL (4.1-5.3); Red Cell Distribution Width 13.2 % (12.1-15.1); White Blood Count 10.2 10^3/uL (4.0-10.0)
[2021-03-24 19:48] LABS: Alanine Aminotransferase 22 U/L (0-41); Albumin Level 4.2 g/dL (3.5-5.2); Alkaline Phosphatase 85 IU/L (40-130); Anion Gap 16.3 (5-19); Aspartate Amino Transferase 12 U/L (0-40); Blood Urea Nitrogen 14 mg/dL (6-20); Calcium 8.5 mg/dL (8.5-10.5); Carbon Dioxide 23 mmol/L (22-29); Chloride 100 mmol/L (98-107); Globulin 2.7 g/dL (1.3-4.6); Glomerular Filtration Rate 124.9 mL/min (90-130); Glucose 109 mg/dL (65-115); Lipase 30 U/L (13-60); Osmolality Calculated 281 mOsm/kg (285-295); Potassium 4.3 mmol/L (3.5-5.1); Sodium 135 mmol/L (136-145); Total Bilirubin 0.3 mg/dL (0.15-1.2); Total Protein 6.9 g/dL (6.6-8.7)
--- NOTE | 2021-03-24 21:46 | W.ED.ABDPA2 ---
Documented by User: AZUCENA Isaac 03/24/21 23:08 HPI - Abdominal Pain General: Chief Complaint: Abdominal Pain Stated Complaint: ABD PAINS Time Seen by Provider: 03/24/21 21:53 History of Present Illness: HPI narrative: 40-year-old male patient comes in with right lower quadrant abdominal pain. Patient states that has had pain since Saturday. Patient reports nothing makes the pain worse or makes the pain better. Patient also reports some diarrhea with his discomfort. Patient has a history of hypertension, DVT, and depression. Review of Systems GI: Reports: abdominal pain PFSH ED PFSH: Medical History Acute pulmonary embolism 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 Hypertension -Continue to monitor vital signs -Continue ACEi Morbid obesity -BMI-41 kg/m2 Non-insulin dependent diabetes mellitus -poorly controlled, A1c-11.2 -noted significant hyperglycemia, Accucheks, ISS, hypoglycemia precautions -consistent carb diet as tolerated -has been unable to tolerate metformin in the past (significant diarrhea, abdominal pain, N/V); will initiate glipizide (cost issues) which PCP will need to titrate SOB (shortness of breath) Surgical History H/O lymph node excision History of angioplasty of vein Left lower extremity Family History Other Cancer Heart disease Social History Smoking and tobacco status: current every day smoker cigarettes Years cigarettes smoked: 21 Quit status (tobacco): considering quitting Smoking risk assessment/counseling performed?: Yes Alcohol intake: current Alcohol intake frequency: few times a month Counseling given: No Counseling given: No Lives independently: Yes Household members: spouse Marital status: Current occupational status: employed 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 History of recent travel: No Current gender identity: Male Physical Exam Const: GENERAL APPEARANCE: cooperative NUTRITIONAL APPEARANCE: obese Neck/C-Spine: COMMON NORMALS: full ROM Resp: COMMON NORMALS: normal respiratory effort and clear to auscultation bilaterally AUSCULTATION: clear to auscultation bilaterally Cardio: COMMON NORMALS: regular rate and regular rhythm RATE: regular rate RHYTHM: regular rhythm GI: COMMON NORMALS: Soft to palpation AUSCULTATION: Yes normoactive bowel sounds PALPATION: Yes Soft to palpation and Yes Tenderness to palpation present (GI) Details: RUQ Skin: COMMON NORMALS: no rashes or lesions noted GENERAL SKIN EXAM: no rashes or lesions noted Course ED course: 0, patient left prior to CT scan of the abdomen. He told desk clerks supervisor at the window that he did not want to stay any longer and we could give his bed to another patient. I had reviewed labs with patient and discussed doing a CT scan to rule out appendicitis and he was agreeable but left about 45 minutes after our discussion. Vital Signs: Vital signs: Vital Signs Temperature 98.1 F 03/24/21 16:36 Pulse Rate 85 03/24/21 16:36 Respiratory Rate 16 03/24/21 16:36 Blood Pressure 115/80 03/24/21 16:36 Pulse Oximetry 95 03/24/21 16:36 MDM - Abdominal Pain MDM Narrative: Medical decision making narrative: Patient came in today for complaints of abdominal pain for the last 3 days. On exam patient was tender in the right upper quadrant. Bowel sounds were hyperactive. Skin was warm and dry. Vital signs were normal. Differential diagnosis includes but not limited to viral gastroenteritis, cholecystitis, appendicitis. CBC and CMP were unremarkable. We had ordered a CT of the abdomen pelvis and discussed this with patient but due to a prolonged ER wait time patient left prior to completion of services. I was unable to discuss risk with patient prior to his leaving. Lab Data: Labs: Lab Results 03/24/21 03/24/21 18:53 18:53 WBC 10.2 10^3/uL H 10 ^3/uL (4.0-10.0) RBC 5.63 10^6/uL H 10 ^6/uL (4.1-5.3) Hgb 16.1 g/dL g/dL (11.7-16.6) Hct 48.5 % % (42.0-52.0) MCV 86.1 fl fl (80-94) MCH 28.6 pg pg (28.0-34.0) MCHC 33.2 g/dL g/dL (30.0-36.0) RDW 13.2 % % (12.1-15.1) Plt Count 288 10^3/cmm 10^3 /cmm (130-400) MPV 9.7 fL fL (7.4-10.4) Neut % (Auto) 60.8 % % Lymph % (Auto) 29.9 % % [place] % (Auto) 6.3 % % Eos % (Auto) 2.3 % % Baso % (Auto) 0.5 % % Neut # (Auto) 6.22 10^3/uL 10^3 /uL (1.8-7.7) Lymph # (Auto) 3.1 10^3/uL 10^3/ uL (0.8-4.8) [place] # (Auto) 0.6 10^3/uL 10^3/ uL (0.2-0.9) Eos # (Auto) 0.2 10^3/uL 10^3/ uL (0.0-0.8) Baso # (Auto) 0.1 10^3/uL 10^3/ uL (0.0-0.1) Nucleated RBC % (a uto) 0 % % Nucleated RBCs # 0.0 /100WBC /100W BC Sodium 135 mmol/L L mmol /L (136-145) Potassium 4.3 mmol/L mmol/L (3.5-5.1) Chloride 100 mmol/L mmol/L (98-107) Carbon Dioxide 23 mmol/L mmol/L (22-29) Anion Gap 16.3 (5-19) BUN 14 mg/dL mg/dL (6-20) Creatinine 0.7 mg/dL mg/dL (0.7-1.2) GFR Calculation 124.9 mL/min mL/m in (90-130) Glucose 109 mg/dL mg/dL (65-115) Calculated Osmolal ity 281 mOsm/kg L mOs m/kg (285-295) Calcium 8.5 mg/dL mg/dL (8.5-10.5) Total Bilirubin 0.3 mg/dL mg/dL (0.15-1.2) AST 12 U/L U/L (0-40) ALT 22 U/L U/L (0-41) Alkaline Phosphata se 85 IU/L IU/L (40-130) Total Protein 6.9 g/dL g/dL (6.6-8.7) Albumin 4.2 g/dL g/dL (3.5-5.2) Globulin 2.7 g/dL g/dL (1.3-4.6) Lipase 30 U/L U/L (13-60) Discharge Plan Discharge Patient Disposition: Left Against Medical Advice Prescriptions: No Action atorvastatin 20 mg tablet 20 mg PO DAILY RF: 0 lisinopril 5 mg tablet 10 mg PO DAILY RF: 0 Januvia 25 mg tablet 25 mg PO DAILY RF: 0 glipizide 5 mg tablet 5 mg PO DAILY RF: 0 Eliquis 5 mg tablet 5 mg PO BID RF: 0 (DME) comp.stocking,thigh,long,large Misc See Rx Instructions .ROUTE .MEDSUPPLY Qty: 2 RF: 0 aspirin 81 mg tablet,delayed release (DR/EC) 81 mg PO DAILY RF: 0 azelastine 137 mcg (0.1 %) aerosol,spray 2 spray intranasal BID 30 Days Qty: 30 RF: 1 Men's Daily 1 cap PO DAILY RF: 0 Discharge Orders: Discharge ED (Routine); Ordered 03/24/21 Ordered By: Gilberto Emerson Coding Level of Care Code ED Export Sales Assistant for Chg Fwd Exam Detailed Documented by User: Demarcus Proctor DO 03/24/21 23:35 HPI - Abdominal Pain General: Chief Complaint: Abdominal Pain Stated Complaint: ABD PAINS Time Seen by Provider: 03/24/21 21:53 PFSH ED PFSH: Medical History Acute pulmonary embolism 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 Hypertension -Continue to monitor vital signs -Continue ACEi Morbid obesity -BMI-41 kg/m2 Non-insulin dependent diabetes mellitus -poorly controlled, A1c-11.2 -noted significant hyperglycemia, Accucheks, ISS, hypoglycemia precautions -consistent carb diet as tolerated -has been unable to tolerate metformin in the past (significant diarrhea, abdominal pain, N/V); will initiate glipizide (cost issues) which PCP will need to titrate SOB (shortness of breath) Surgical History H/O lymph node excision History of angioplasty of vein Left lower extremity Family History Other Cancer Heart disease Social History Smoking and tobacco status: current every day smoker cigarettes Years cigarettes smoked: 21 Quit status (tobacco): considering quitting Smoking risk assessment/counseling performed?: Yes Alcohol intake: current Alcohol intake frequency: few times a month Counseling given: No Counseling given: No Lives independently: Yes Household members: spouse Marital status: Current occupational status: employed 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 I agree with his history, evaluation, and treatment. Lab Data: Labs: Lab Results 03/24/21 03/24/21 18:53 18:53 WBC 10.2 10^3/uL H 10 ^3/uL (4.0-10.0) RBC 5.63 10^6/uL H 10 ^6/uL (4.1-5.3) Hgb 16.1 g/dL g/dL (11.7-16.6) Hct 48.5 % % (42.0-52.0) MCV 86.1 fl fl (80-94) MCH 28.6 pg pg (28.0-34.0) MCHC 33.2 g/dL g/dL (30.0-36.0) RDW 13.2 % % (12.1-15.1) Plt Count 288 10^3/cmm 10^3 /cmm (130-400) MPV 9.7 fL fL (7.4-10.4) Neut % (Auto) 60.8 % % Lymph % (Auto) 29.9 % % [place] % (Auto) 6.3 % % Eos % (Auto) 2.3 % % Baso % (Auto) 0.5 % % Neut # (Auto) 6.22 10^3/uL 10^3 /uL (1.8-7.7) Lymph # (Auto) 3.1 10^3/uL 10^3/ uL (0.8-4.8) [place] # (Auto) 0.6 10^3/uL 10^3/ uL (0.2-0.9) Eos # (Auto) 0.2 10^3/uL 10^3/ uL (0.0-0.8) Baso # (Auto) 0.1 10^3/uL 10^3/ uL (0.0-0.1) Nucleated RBC % (a uto) 0 % % Nucleated RBCs # 0.0 /100WBC /100W BC Sodium 135 mmol/L L mmol /L (136-145) Potassium 4.3 mmol/L mmol/L (3.5-5.1) Chloride 100 mmol/L mmol/L (98-107) Carbon Dioxide 23 mmol/L mmol/L (22-29) Anion Gap 16.3 (5-19) BUN 14 mg/dL mg/dL (6-20) Creatinine 0.7 mg/dL mg/dL (0.7-1.2) GFR Calculation 124.9 mL/min mL/m in (90-130) Glucose 109 mg/dL mg/dL (65-115) Calculated Osmolal ity 281 mOsm/kg L mOs m/kg (285-295) Calcium 8.5 mg/dL mg/dL (8.5-10.5) Total Bilirubin 0.3 mg/dL mg/dL (0.15-1.2) AST 12 U/L U/L (0-40) ALT 22 U/L U/L (0-41) Alkaline Phosphata se 85 IU/L IU/L (40-130) Total Protein 6.9 g/dL g/dL (6.6-8.7) Albumin 4.2 g/dL g/dL (3.5-5.2) Globulin 2.7 g/dL g/dL (1.3-4.6) Lipase 30 U/L U/L (13-60) Discharge Plan Discharge Patient Disposition: Left Against Medical Advice Prescriptions: No Action atorvastatin 20 mg tablet 20 mg PO DAILY RF: 0 lisinopril 5 mg tablet 10 mg PO DAILY RF: 0 Januvia 25 mg tablet 25 mg PO DAILY RF: 0 glipizide 5 mg tablet 5 mg PO DAILY RF: 0 Eliquis 5 mg tablet 5 mg PO BID RF: 0 (DME) comp.stocking,thigh,long,large Misc See Rx Instructions .ROUTE .MEDSUPPLY Qty: 2 RF: 0 aspirin 81 mg tablet,delayed release (DR/EC) 81 mg PO DAILY RF: 0 azelastine 137 mcg (0.1 %) aerosol,spray 2 spray intranasal BID 30 Days Qty: 30 RF: 1 Men's Daily 1 cap PO DAILY RF: 0 Discharge Orders: Discharge ED (Routine); Ordered 03/24/21 Ordered By: Gilberto Emerson Coding Level of Care Code ED Export Sales Assistant for Jack Fwd Exam Detailed
== END 2021-03-24 22:30 | disposition left against medical advice (07) ==
PROVIDERS: Physician Assistant; Emergency Provider Nurse Practitioner Family; PCP Nurse Practitioner Family
DX: R10.31 Right lower quadrant pain (principal); Z53.29 Procedure and treatment not carried out because of patient's decision for other reasons; E11.9 Type 2 diabetes mellitus without complications; I10 Essential (primary) hypertension; E66.01 Morbid (severe) obesity due to excess calories; Z68.38 Body mass index [BMI] 38.0-38.9, adult; F17.210 Nicotine dependence, cigarettes, uncomplicated; Z79.01 Long term (current) use of anticoagulants; Z86.711 Personal history of pulmonary embolism; Z79.84 Long term (current) use of oral hypoglycemic drugs; Z79.82 Long term (current) use of aspirin; Z86.718 Personal history of other venous thrombosis and embolism
CPT/HCPCS: 80053; 83690; 85025

== ENCOUNTER 2021-03-29 00:26 | Emergency (ER) | payer MEDICAID, SELFPAY ==
[2021-03-29 00:34] VITALS: BP 160/105; PULSE 85; RESP 16; TEMP 36.6; O2SAT 95; BMI 37.5
--- NOTE | 2021-03-29 02:06 | CTR_ITS ---
PROCEDURE INFORMATION: Exam: CT Abdomen And Pelvis With Contrast Exam date and time: 03/29/2021 2:06 AM Age: 40 years old Clinical indication: Abdominal pain; Generalized; Patient HX: Diffuse abd pain with persistent diarrhea x 1 week. Unable to bring left arm above head due to shoulder pain/rom. TECHNIQUE: Imaging protocol: Computed tomography of the abdomen and pelvis with contrast. Radiation optimization: All CT scans at this facility use at least one of these dose optimization techniques: automated exposure control; mA and/or kV adjustment per patient size (includes targeted exams where dose is matched to clinical indication); or iterative reconstruction. Contrast material: OMNI 300; Contrast volume: 95 ml; Contrast route: INTRAVENOUS (IV); COMPARISON: CT abdomen pelvis w con* [id number] 09/09/2020 3:36 PM RADIATION DOSE METRICS: Total DLP (mGy-cm): 2033.47 FINDINGS: Lungs: The lung bases are clear. No effusion Liver: Normal. No mass. Gallbladder and bile ducts: Gallbladder is contracted but otherwise normal. Pancreas: Normal. No ductal dilation. Spleen: Normal. No splenomegaly. Adrenal glands: Normal. No mass. Kidneys and ureters: There is a subcentimeter low-attenuation lesion/lesions, of the right kidney which are too small to accurately characterize by CT. Stomach and bowel: There is thickening of the wall of the colon with pericolonic fat stranding. Appendix: No evidence of appendicitis. Intraperitoneal space: 4.3 cm sebaceous cysts the epigastric region. Vasculature: Unremarkable. No abdominal aortic aneurysm. Lymph nodes: Unremarkable. No enlarged lymph nodes. Urinary bladder: Unremarkable as visualized. Reproductive: Unremarkable as visualized. Bones/joints: Unremarkable. No acute fracture. Soft tissues: Unremarkable. CT/CT abdomen pelvis w con* [id number] IMPRESSION: 1. Diffuse infectious versus inflammatory colitis. 2. 4.3 cm sebaceous cysts the epigastric region. COMMENTS: Consistent with the [employer]'s Incidental Findings Committee white paper (J Am Christopher Radiol 2018): Any incidental renal lesion less than 1 cm or classified as too small to characterize, or any incidental cystic renal lesion characterized as simple-appearing, is likely benign. No follow-up imaging is recommended for these lesions per consensus recommendations based on imaging criteria.
--- NOTE | 2021-03-29 02:15 | W.ED.NAVMDI ---
HPI - Nausea/Vomiting/Diarrhea General: Chief complaint: Nausea/Vomiting/Diarrhea Stated complaint: ABD Pain\Diarhea\N Time Seen by Provider: 03/29/21 00:30 Source: patient Mode of arrival: ambulatory Limitations: no limitations History of Present Illness: 40-year-old male states that over the last week he has been having nausea vomiting diarrhea along with diffuse sharp abdominal pains states he had multiple episodes of diarrhea daily and has had no improvement. States the pain is all over worse with movement improved with rest denies any blood in the stool denies any fever denies any recent illnesses. Associated nausea: Yes Associated symtoms: Reports nausea; Denies chest pain, dysuria or headache(s) Review of Systems Const: Denies: fever(s), chills, body aches or change in appetite Eyes: Denies: blurry vision or eye discomfort ENMT: Denies: throat pain or dental pain Card: Denies: chest pain Resp: Denies: dyspnea GI: Reports: abdominal pain, nausea, vomiting and diarrhea : Denies: dysuria Musc: Denies: neck pain or back pain Skin/Breast: Denies: rash Neuro: Denies: headache(s) Psych: Denies: depression [place]/Lymph: Denies: easy bruising All/Imm: Denies: urticaria PFSH ED PFSH: Medical History (Updated 03/29/21 @ 04:02 by Raya Mcnair MD) Acute pulmonary embolism 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 Hypertension -Continue to monitor vital signs -Continue ACEi Morbid obesity -BMI-41 kg/m2 Non-insulin dependent diabetes mellitus -poorly controlled, A1c-11.2 -noted significant hyperglycemia, Accucheks, ISS, hypoglycemia precautions -consistent carb diet as tolerated -has been unable to tolerate metformin in the past (significant diarrhea, abdominal pain, N/V); will initiate glipizide (cost issues) which PCP will need to titrate SOB (shortness of breath) Surgical History H/O lymph node excision History of angioplasty of vein Left lower extremity Family History Other Cancer Heart disease Social History Smoking and tobacco status: current every day smoker cigarettes Years cigarettes smoked: 21 Quit status (tobacco): considering quitting Smoking risk assessment/counseling performed?: Yes Alcohol intake: current Alcohol intake frequency: few times a month Counseling given: No Counseling given: No Lives independently: Yes Household members: spouse Marital status: Current occupational status: employed 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 History of recent travel: No Current gender identity: Male Physical Exam Const: COMMON NORMALS: no acute distress, patient oriented x3 and healthy appearing HENMT: COMMON NORMALS: normocephalic and atraumatic HEAD & SCALP: normocephalic and atraumatic Eye: COMMON NORMALS: Equal, round and reactive pupils present and EOMs intact bilaterally PUPIL: Yes Equal, round and reactive pupils present Neck/C-Spine: COMMON NORMALS: full ROM and supple Chest: COMMONS NORMALS: normal inspection of the chest and normal palpation of entire chest wall Resp: COMMON NORMALS: normal respiratory effort, No retractions, No use of accessory muscles and clear to auscultation bilaterally AUSCULTATION: clear to auscultation bilaterally Cardio: COMMON NORMALS: regular rate, regular rhythm and No murmurs present (Cardio) RATE: regular rate RHYTHM: regular rhythm GI: COMMON NORMALS: Normal to inspection, nondistended, normoactive bowel sounds present, Soft to palpation and no masses PALPATION: Yes Soft to palpation OTHER: Diffuse tenderness Extremity: COMMON NORMALS: normal to inspection and full ROM Neuro: COMMON NORMALS: patient oriented x3, moves all extremities and no focal motor deficits Psych: COMMON NORMALS: mental status grossly normal, Normal thought process present and cooperative THOUGHT PROCESS: Normal thought process present Skin: COMMON NORMALS: no rashes or lesions noted and no wounds GENERAL SKIN EXAM: no rashes or lesions noted Course Vital Signs: Vital signs: Vital Signs Temperature 98 F 03/29/21 00:34 Pulse Rate 80 03/29/21 03:11 Respiratory Rate 18 03/29/21 03:11 Blood Pressure 116/70 03/29/21 03:11 Pulse Oximetry 95 03/29/21 03:11 MDM - Nausea/Vomiting/Diarrhea Medical Decision Making Patient presents with diarrhea CT does show colitis patient abdominal exam here is benign blood work is normal we will start him on Cipro Flagyl getting follow-up with surgery he is to follow-up in 5 to 7 days return if worsening he understands agrees to plan. Lab Data : 03/29/21 02:33 03/29/21 02:33 Radiology Impressions Abdomen/Pelvis CT 03/29/21 02:06 IMPRESSION: 1. Diffuse infectious versus inflammatory colitis. 2. 4.3 cm sebaceous cysts the epigastric region. COMMENTS: Consistent with the [employer] [place] [employer]'s Incidental Findings Committee white paper (J Am Christopher Radiol 2018): Any incidental renal lesion less than 1 cm or classified as too small to characterize, or any incidental cystic renal lesion characterized as simple-appearing, is likely benign. No follow-up imaging is recommended for these lesions per consensus recommendations based on imaging criteria. Laboratory Results WBC 11.4 10^3/uL (4.0-10.0) H 03/29/21 02:33 RBC 5.42 10^6/uL (4.1-5.3) H 03/29/21 02:33 Hgb 15.7 g/dL (11.7-16.6) 03/29/21 02:33 Hct 46.9 % (42.0-52.0) 03/29/21 02:33 MCV 86.5 fl (80-94) 03/29/21 02:33 MCH 29.0 pg (28.0-34.0) 03/29/21 02:33 MCHC 33.5 g/dL (30.0-36.0) 03/29/21 02:33 RDW 13.5 % (12.1-15.1) 03/29/21 02:33 Plt Count 290 10^3/cmm (130-400) 03/29/21 02:33 MPV 9.9 fL (7.4-10.4) 03/29/21 02:33 Neut % (Auto) 65.9 % 03/29/21 02:33 Lymph % (Auto) 23.7 % 03/29/21 02:33 [place] % (Auto) 6.6 % 03/29/21 02:33 Eos % (Auto) 2.7 % 03/29/21 02:33 Baso % (Auto) 0.7 % 03/29/21 02:33 Neut # (Auto) 7.50 10^3/uL (1.8-7.7) 03/29/21 02:33 Lymph # (Auto) 2.7 10^3/uL (0.8-4.8) 03/29/21 02:33 [place] # (Auto) 0.8 10^3/uL (0.2-0.9) 03/29/21 02:33 Eos # (Auto) 0.3 10^3/uL (0.0-0.8) 03/29/21 02:33 Baso # (Auto) 0.1 10^3/uL (0.0-0.1) 03/29/21 02:33 Nucleated RBC % (auto) 0 % 03/29/21 02:33 Nucleated RBCs # 0.0 /100WBC 03/29/21 02:33 Sodium 136 mmol/L (136-145) 03/29/21 02:33 Potassium 4.5 mmol/L (3.5-5.1) 03/29/21 02:33 Chloride 100 mmol/L (98-107) 03/29/21 02:33 Carbon Dioxide 22 mmol/L (22-29) 03/29/21 02:33 Anion Gap 18.5 (5-19) 03/29/21 02:33 BUN 16 mg/dL (6-20) 03/29/21 02:33 Creatinine 0.7 mg/dL (0.7-1.2) 03/29/21 02:33 GFR Calculation 124.9 mL/min (90-130) 03/29/21 02:33 Glucose 156 mg/dL (65-115) H 03/29/21 02:33 Calculated Osmolality 286 mOsm/kg (285-295) 03/29/21 02:33 Calcium 9.3 mg/dL (8.5-10.5) 03/29/21 02:33 Total Bilirubin 0.2 mg/dL (0.15-1.2) 03/29/21 02:33 AST 16 U/L (0-40) 03/29/21 02:33 ALT 21 U/L (0-41) 03/29/21 02:33 Alkaline Phosphatase 79 IU/L (40-130) 03/29/21 02:33 Total Protein 7.0 g/dL (6.6-8.7) 03/29/21 02:33 Albumin 4.0 g/dL (3.5-5.2) 03/29/21 02:33 Globulin 3.0 g/dL (1.3-4.6) 03/29/21 02:33 Lipase 26 U/L (13-60) 03/29/21 02:[address] Abd/Pel: Radiologist's impression: CT/CT abdomen pelvis w con* [id number] IMPRESSION: 1. Diffuse infectious versus inflammatory colitis. 2. 4.3 cm sebaceous cysts the epigastric region. COMMENTS: Other Data pt is well appearing Discharge Plan Discharge Patient Disposition: Home Clinical Impression: Colitis Condition: Stable Prescriptions: New hydrocodone-acetaminophen 5-325 mg tablet 1 tab PO Q6H PRN (Reason: pain) Qty: 14 0RF ondansetron 4 mg tablet,disintegrating 4 mg PO Q6H PRN (Reason: nausea and vomiting) Qty: 14 0RF Cipro 500 mg tablet 500 mg PO BID Qty: 14 0RF Flagyl 500 mg tablet 500 mg PO Q8H 7 Days Qty: 21 0RF No Action atorvastatin 20 mg tablet 20 mg PO DAILY 0RF lisinopril 5 mg tablet 10 mg PO DAILY 0RF Januvia 25 mg tablet 25 mg PO DAILY 0RF glipizide 5 mg tablet 5 mg PO DAILY 0RF Eliquis 5 mg tablet 5 mg PO BID 0RF Rx Instructions: SEE PHARMACY (DME) comp.stocking,thigh,long,large Misc See Rx Instructions .ROUTE .MEDSUPPLY Qty: 2 0RF Rx Instructions: As directed aspirin 81 mg tablet,delayed release (DR/EC) 81 mg PO DAILY 0RF azelastine 137 mcg (0.1 %) aerosol,spray 2 spray intranasal BID 30 Days Qty: 30 1RF Rx Instructions: administer into each nostril Men's Daily 1 cap PO DAILY 0RF Discharge Orders: Discharge ED (Routine); Ordered 03/29/21 Ordered By: Raya Mcnair Referrals: Kraen Badillo NP [Primary Care Provider] - Ronni Grace MD [Physician] - 1-3 days Discharge Diet: Advance as tolerated Discharge Activity: Resume usual activity Coding Level of Care Code ED Coupon Clerk for Chg Fwd Exam Comprehensive
[2021-03-29] MEDS: iohexol 300 mg/mL 100 mL Btl IV (02:32)
[2021-03-29 02:47] LABS: Basophils # 0.1 10^3/uL (0.0-0.1); Basophils % 0.7 %; Eosinophils # 0.3 10^3/uL (0.0-0.8); Eosinophils % 2.7 %; Hematocrit 46.9 % (42.0-52.0); Hemoglobin 15.7 g/dL (11.7-16.6); Lymphocytes # 2.7 10^3/uL (0.8-4.8); Lymphocytes % 23.7 %; Mean Corpuscular HGB Conc 33.5 g/dL (30.0-36.0); Mean Corpuscular Volume 86.5 fl (80-94); Mean Platelet Volume 9.9 fL (7.4-10.4); Monocytes # 0.8 10^3/uL (0.2-0.9); Monocytes % 6.6 %; Neutrophils % 65.9 %; Nucleated Red Blood Cells % 0 %; Platelet Count 290 10^3/cmm (130-400); Red Blood Count 5.42 10^6/uL (4.1-5.3); Red Cell Distribution Width 13.5 % (12.1-15.1); White Blood Count 11.4 10^3/uL (4.0-10.0)
[2021-03-29] MEDS: diphenoxylate/atropine Tablet 2 TAB PO (03:02)
[2021-03-29] MEDS: ondansetron 2 mg/ML SDV 2 mL 4 MG IVP (03:03)
[2021-03-29 03:04] VITALS: RESP 18; O2SAT 96
[2021-03-29] MEDS: morphine 4 mg/mL SDV 1 mL IVP (03:04)
[2021-03-29] MEDS: sodium chloride 0.9% 1,000 ML 999 ML IV (03:07)
[2021-03-29 03:11] VITALS: BP 116/70; PULSE 80; RESP 18; O2SAT 95
[2021-03-29 03:13] LABS: Alkaline Phosphatase 79 IU/L (40-130); Anion Gap 18.5 (5-19); Aspartate Amino Transferase 16 U/L (0-40); Blood Urea Nitrogen 16 mg/dL (6-20); Calcium 9.3 mg/dL (8.5-10.5); Carbon Dioxide 22 mmol/L (22-29); Chloride 100 mmol/L (98-107); Glomerular Filtration Rate 124.9 mL/min (90-130); Glucose 156 mg/dL (65-115); Lipase 26 U/L (13-60); Osmolality Calculated 286 mOsm/kg (285-295); Potassium 4.5 mmol/L (3.5-5.1); Sodium 136 mmol/L (136-145); Total Bilirubin 0.2 mg/dL (0.15-1.2)
[2021-03-29 03:14] LABS: Alanine Aminotransferase 21 U/L (0-41)
[2021-03-29 04:14] VITALS: BP 126/77; PULSE 74; O2SAT 96
--- NOTE | 2021-03-29 15:17 | DCPLANNER ---
manager lean had message to schedule a follow up appointment for patient with Dr. Grace. manager lean faxed patients information to office of Dr. Grace. Patients information will be reviewed, clinic will call patient with appointment information.
== END 2021-03-29 04:17 | disposition home or self-care (01) ==
PROVIDERS: Emergency Provider Emergency Medicine; PCP Nurse Practitioner Family
DX: K52.9 Noninfective gastroenteritis and colitis, unspecified (principal); Z79.01 Long term (current) use of anticoagulants; Z79.84 Long term (current) use of oral hypoglycemic drugs; Z79.82 Long term (current) use of aspirin; Z86.711 Personal history of pulmonary embolism; I10 Essential (primary) hypertension; E11.9 Type 2 diabetes mellitus without complications; F17.210 Nicotine dependence, cigarettes, uncomplicated
CPT/HCPCS: 74177; 80053; 83690; 85025; 96361; 96374; 96375; 99283; J2270; J2405; J7030; Q9967

== ENCOUNTER 2021-03-30 11:01 | Emergency (ER) | payer MEDICAID, SELFPAY ==
[2021-03-30 11:17] VITALS: BP 127/82; PULSE 78; RESP 18; TEMP 36.8; O2SAT 97; BMI 38.1
--- NOTE | 2021-03-30 11:45 | W.ED.ABDPA2 ---
HPI - Abdominal Pain General: Chief Complaint: Abdominal Pain Stated Complaint: ABD PAIN, N/V Time Seen by Provider: 03/30/21 11:28 Source: patient Mode of arrival: EMS Limitations: no limitations History of Present Illness: This patient returns to the emergency department. He apparently was seen yesterday and diagnosed as having colitis. He states his symptoms began 1 week ago with abdominal pain with nausea and some vomiting. He states that he thought it was a GI bug as others had been sick around him. He states the symptoms persisted and he eventually made his way to the emergency department yesterday was diagnosed as having colitis and being prescribed antibiotics. He states his symptoms are worse today with generalized abdominal pain nausea and chills. He states he did make urine today but it was darker than normal. He states his sugars have been significantly elevated from usual levels in the low 200s from the low 100s which they are normally. 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 The last occurrence was approximately 3 years ago. He currently still takes his DOAC as prescribed. It is unclear whether they were provoked initially or not but apparently has had recurrent episodes to therefore continual treatment per his history. He states that no one in his home has been currently ill. He does work at [employer]. He is unimmunized against COVID-19. He has not had any loss of taste, headache etc. He does have mild chronic cough. Location: Diffuse Quality: cramping and aching Radiation: none Relieving factors: nothing Associated Symptoms: Reports chills and diarrhea; Denies dysuria, fever(s), hematemesis, melena and syncope Review of Systems Const: Reports: chills; Denies: fever(s) or body aches Eyes: Denies: change in vision ENMT: Denies: throat pain, hoarseness or change in hearing Card: Denies: chest pain, palpitations, irregular heart rhythm or syncope Resp: Reports: non-productive cough; Denies: dyspnea, wheezing or stridor GI: Reports: diarrhea; Denies: hematemesis or melena : Denies: flank pain, difficulty urinating or dysuria Musc: Denies: neck pain, back pain, extremity pain or extremity swelling Skin/Breast: Denies: rash, pruritus or erythema Neuro: Denies: headache(s), numbness in extremities or weakness in extremities Psych: Denies: anxiety or depression [place]/Lymph: Reports: easy bruising; Denies: easy bleeding, petechiae or purpura PFSH ED PFSH: Medical History (Updated 03/30/21 @ 13:58 by Jung Whiteside DO) Acute pulmonary embolism 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 Hypertension -Continue to monitor vital signs -Continue ACEi Morbid obesity -BMI-41 kg/m2 Non-insulin dependent diabetes mellitus -poorly controlled, A1c-11.2 -noted significant hyperglycemia, Accucheks, ISS, hypoglycemia precautions -consistent carb diet as tolerated -has been unable to tolerate metformin in the past (significant diarrhea, abdominal pain, N/V); will initiate glipizide (cost issues) which PCP will need to titrate SOB (shortness of breath) Surgical History H/O lymph node excision History of angioplasty of vein Left lower extremity Family History Other Cancer Heart disease Social History Smoking and tobacco status: current every day smoker cigarettes Years cigarettes smoked: 21 Quit status (tobacco): considering quitting Smoking risk assessment/counseling performed?: Yes Alcohol intake: current Alcohol intake frequency: few times a month Counseling given: No Counseling given: No Lives independently: Yes Household members: spouse Marital status: Current occupational status: employed 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 Const: COMMON NORMALS: patient oriented x3 and alert GENERAL APPEARANCE: cooperative HENMT: COMMON NORMALS: normocephalic, atraumatic and Normal external nose present HEAD & SCALP: normocephalic and atraumatic FACE & SINUS: normal facial exam and face symmetric; no sinus tenderness NOSE: Normal external nose present MOUTH: Normal oral and palatal mucosa present Eye: COMMON NORMALS: Equal, round and reactive pupils present, EOMs intact bilaterally and conjunctivae normal CONJUNCTIVA: Yes conjunctivae normal PUPIL: Yes Equal, round and reactive pupils present Neck/C-Spine: COMMON NORMALS: full ROM, no lymphadenopathy, supple and no JVD Chest: COMMONS NORMALS: normal inspection of the chest and normal palpation of entire chest wall Resp: COMMON NORMALS: normal respiratory effort, No retractions, No use of accessory muscles, clear to auscultation bilaterally and percussion normal EFFORT & INSPECTION: Yes able to speak in complete sentences AUSCULTATION: clear to auscultation bilaterally PERCUSSION: percussion normal Cardio: COMMON NORMALS: no JVD, regular rate and regular rhythm RATE: regular rate RHYTHM: regular rhythm GI: PALPATION: Yes Tenderness to palpation present (GI) (He has generalized tenderness to palpation. Some voluntary guarding. No r) and Yes Guarding due to palpation present (GI) : COMMON NORMALS: Yes no CVA tenderness BLADDER/KIDNEY EXAM: Yes no CVA tenderness Back/Pelvis: COMMON NORMALS: no CVA tenderness, thoracic and lumbar spine normal to inspection, no thoracic nor lumbar tenderness and thoraco-lumbar ROM normal Extremity: COMMON NORMALS: normal to inspection, full ROM, capillary refill normal, no calf tenderness and no pedal edema Neuro: COMMON NORMALS: patient oriented x3, moves all extremities, no focal motor deficits and no sensory deficits noted SENSORIUM/ORIENTATION: Yes alert SPEECH: speech normal Psych: COMMON NORMALS: mental status grossly normal and cooperative Skin: COMMON NORMALS: no rashes or lesions noted, no wounds and turgor normal GENERAL SKIN EXAM: no rashes or lesions noted and turgor normal Course Reevaluation(s): Reevaluation #1: During nursing interview of the patient he admitted to the RN that the medications prescribed yesterday he had not started on at this time. He states that he is taken those before. Reevaluation #2: Patient looks comfortable. He is interacting with spouse. I informed him of reassuring imaging in terms of no evidence of surgical abdomen at this time however he has had some mild progression of his inflammatory process. Also informed him that we are going to be placing him on Augmentin at discharge instead of the Cipro and Flagyl which he has not taken in is alleged that has not helped him in the past. We will also provide him an antispasmodic as well. Discussed expected course with both he and spouse present. Patient is currently stable at this time for discharge and outpatient management. Interestingly enough all his laboratories are reassuring at this time and occluding his blood sugar although he is alleged that his blood sugars were in the 200s in the last day or 2. He voiced understanding and acknowledges our discussion. Vital Signs: Vital signs: Vital Signs Temperature 98.2 F 03/30/21 11:17 Pulse Rate 78 03/30/21 11:17 Respiratory Rate 20 H 03/30/21 12:09 Blood Pressure 127/82 03/30/21 11:17 Pulse Oximetry 96 03/30/21 12:09 MDM - Abdominal Pain Medical Decision Making Patient's had subjective as well as radiographic progression of his colitis since last 24 hours. He apparently is not taking any the medications that of recommended. We will go ahead and give him a loading dose of Unasyn at this time plan on switch him to Augmentin as it gives appropriate coverage for GI ray. No evidence at this time of a surgical abdomen. The patient should be able to be managed as an outpatient. Differential Diagnosis Unlikely acute appendicitis, diverticulitis, pancreatitis or small bowel obstruction Medical Records I reviewed the patient's medical records. Lab Data I reviewed the patient's lab results. : 03/30/21 13:21 03/30/21 13:21 Labs/Radiology: Radiology Impressions Abdomen/Pelvis CT 03/30/21 11:54 IMPRESSION: 1. Mild progression of colitis since the prior examination. No free air or fluid fluid. 2. No renal obstruction. Normal appendix. Laboratory Results WBC 7.6 10^3/uL (4.0-10.0) 03/30/21 13:21 RBC 4.95 10^6/uL (4.1-5.3) 03/30/21 13:21 Hgb 14.4 g/dL (11.7-16.6) 03/30/21 13:21 Hct 43.6 % (42.0-52.0) 03/30/21 13:21 MCV 88.1 fl (80-94) 03/30/21 13:21 MCH 29.1 pg (28.0-34.0) 03/30/21 13:21 MCHC 33.0 g/dL (30.0-36.0) 03/30/21 13:21 RDW 13.3 % (12.1-15.1) 03/30/21 13:21 Plt Count 240 10^3/cmm (130-400) 03/30/21 13:21 MPV 9.6 fL (7.4-10.4) 03/30/21 13:21 Neut % (Auto) 53.7 % 03/30/21 13:21 Lymph % (Auto) 31.7 % 03/30/21 13:21 [place] % (Auto) 9.9 % 03/30/21 13:21 Eos % (Auto) 3.6 % 03/30/21 13:21 Baso % (Auto) 0.8 % 03/30/21 13:21 Neut # (Auto) 4.06 10^3/uL (1.8-7.7) 03/30/21 13:21 Lymph # (Auto) 2.4 10^3/uL (0.8-4.8) 03/30/21 13:21 [place] # (Auto) 0.8 10^3/uL (0.2-0.9) 03/30/21 13:21 Eos # (Auto) 0.3 10^3/uL (0.0-0.8) 03/30/21 13:21 Baso # (Auto) 0.1 10^3/uL (0.0-0.1) 03/30/21 13:21 Nucleated RBC % (auto) 0 % 03/30/21 13:21 Nucleated RBCs # 0.0 /100WBC 03/30/21 13:21 Sodium 135 mmol/L (136-145) L 03/30/21 13:21 Potassium 4.1 mmol/L (3.5-5.1) 03/30/21 13:21 Chloride 101 mmol/L (98-107) 03/30/21 13:21 Carbon Dioxide 23 mmol/L (22-29) 03/30/21 13:21 Anion Gap 15.1 (5-19) 03/30/21 13:21 BUN 10 mg/dL (6-20) 03/30/21 13:21 Creatinine 0.7 mg/dL (0.7-1.2) 03/30/21 13:21 GFR Calculation 124.9 mL/min (90-130) 03/30/21 13:21 Glucose 98 mg/dL (65-115) 03/30/21 13:21 Calculated Osmolality 279 mOsm/kg (285-295) L 03/30/21 13:21 Calcium 8.5 mg/dL (8.5-10.5) 03/30/21 13:21 Total Bilirubin 0.3 mg/dL (0.15-1.2) 03/30/21 13:21 AST 9 U/L (0-40) 03/30/21 13:21 ALT 17 U/L (0-41) 03/30/21 13:21 Alkaline Phosphatase 66 IU/L (40-130) 03/30/21 13:21 Total Protein 5.9 g/dL (6.6-8.7) L 03/30/21 13:21 Albumin 3.4 g/dL (3.5-5.2) L 03/30/21 13:21 Globulin 2.5 g/dL (1.3-4.6) 03/30/21 13:21 Lipase 47 U/L (13-60) 03/30/21 13:[address] Abd/Pel: Radiologist's impression: CT of abdomen pelvis interpreted as having some progression of his colitis symptoms. No perforation, no free air no other intra-abdominal process at this time. Discharge Plan Discharge Patient Disposition: Home Clinical Impression: Colitis Condition: Stable Prescriptions: New Augmentin 875-125 mg tablet 1 tab PO BID Qty: 14 0RF Levsin 0.125 mg tablet 0.125 mg PO Q6H PRN (Reason: abdominal discomfort) Qty: 30 0RF Discontinued ciprofloxacin HCl [Cipro] 500 mg tablet 500 mg PO BID MDD SEE PHARMACY COMMENT Qty: 14 0RF metronidazole [Flagyl] 500 mg tablet 500 mg PO Q8H 7 Days Qty: 21 0RF No Action atorvastatin 20 mg tablet 20 mg PO DAILY 0RF Januvia 25 mg tablet 25 mg PO DAILY 0RF glipizide 5 mg tablet 5 mg PO DAILY 0RF Eliquis 5 mg tablet 5 mg PO BID 0RF (DME) comp.stocking,thigh,long,large Misc See Rx Instructions .ROUTE .MEDSUPPLY Qty: 2 0RF Rx Instructions: As directed aspirin 81 mg tablet,delayed release (DR/EC) 81 mg PO DAILY 0RF azelastine 137 mcg (0.1 %) aerosol,spray 2 spray intranasal BID 30 Days Qty: 30 1RF Rx Instructions: administer into each nostril Men's Daily 1 cap PO DAILY 0RF hydrocodone-acetaminophen 5-325 mg tablet 1 tab PO Q6H PRN (Reason: pain) Qty: 14 0RF ondansetron 4 mg tablet,disintegrating 4 mg PO Q6H PRN (Reason: nausea and vomiting) Qty: 14 0RF lisinopril 20 mg Tablet 20 mg PO DAILY 0RF fluoxetine 40 mg capsule 40 mg PO DAILY 0RF triamcinolone acetonide 0.025 % ointment 1 applic TOPICAL BID PRN (Reason: Rash) 0RF ProAir HFA 90 mcg/actuation HFA aerosol inhaler 2 puff INHALATION Q6H PRN (Reason: Shortness Of Breath) 0RF Discharge Orders: Discharge ED (Routine); Ordered 03/30/21 Ordered By: Jung Whiteside Referrals: Karen Badillo NP [Primary Care Provider] - Discharge Diet: Advance as tolerated and Diabetic Discharge Activity: Increase activity as tolerated Patient Instructions: Opioid Safety Activity Restrictions/Additional Instructions: Take the antibiotics we have prescribed beginning your next dose this evening and continuing until gone. You also may use the other medications we have provided for abdominal discomfort and spasm. Make sure you are drinking at least 6 to 8 glasses of water daily in addition to your usual fluid intake. Monitor your blood sugars carefully and advance your diet to a usual diabetic diet as tolerated. If your symptoms persist worsen or you start developing high fevers or other concerns return to this or the nearest emergency department. 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
--- NOTE | 2021-03-30 11:54 | CT_ITS ---
WS: [id number] CT ABDOMEN AND PELVIS NONCONTRAST HISTORY: worsening abd pain TECHNIQUE: Imaging performed through the abdomen and pelvis. Coronal and sagittal reformats are submi tted. All CT scans at [facility] use at least one of these dose optimization techniques: auto mated exposure control; mA and/or kV adjustment per patient size (includes targeted exams where dose is matched to clinical indication); or iterative reconstruction. DLP: 2069.87 mGy.cm COMPARISON: 03/29/2021 Lower thorax: Lung bases are clear. Visualized heart is normal. No hiatal hernia. Liver: Normal size liver. No mass or bile duct dilatation. Gallbladder: Normal gallbladder. Pancreas: Normal size and attenuation. Normal pancreatic duct. No pancreatitis or mass. Spleen: Normal. Adrenal glands: Normal. No mass. Right kidney: Normal size kidney with no mass or hydronephrosis. Left kidney: Normal size kidney with no mass or hydronephrosis. Aorta: Mild atherosclerosis abdominal aorta with no aneurysm. No free fluid, intraperitoneal air or significant lymphadenopathy. GI tract: Normal appendix. There is been a very mild progression of submucosal thickening and pericol onic edema since the prior study. Progression of inflammation at the cecum and the sigmoid. No free a ir is identified. Abdominal wall: The abdominal wall is intact. There is a soft tissue nodule in the supraumbilical abd ominal wall measuring 3.4 cm. Pelvis: No free fluid. Urinary bladder is minimally distended. Osseous structures: Unremarkable. CT/CT abdomen pelvis wo con [id number] IMPRESSION: 1. Mild progression of colitis since the prior examination. No free air or flu id fluid. 2. No renal obstruction. Normal appendix.
[2021-03-30 12:09] VITALS: RESP 20; O2SAT 96
[2021-03-30] MEDS: sodium chloride 0.9% 1,000 ML 999 ML IV (12:09)
[2021-03-30] MEDS: morphine 4 mg/mL SDV 1 mL IVP (12:09)
[2021-03-30 13:39] LABS: Basophils # 0.1 10^3/uL (0.0-0.1); Basophils % 0.8 %; Eosinophils # 0.3 10^3/uL (0.0-0.8); Eosinophils % 3.6 %; Hematocrit 43.6 % (42.0-52.0); Hemoglobin 14.4 g/dL (11.7-16.6); Lymphocytes # 2.4 10^3/uL (0.8-4.8); Lymphocytes % 31.7 %; Mean Corpuscular Hemoglobin 29.1 pg (28.0-34.0); Mean Corpuscular Volume 88.1 fl (80-94); Mean Platelet Volume 9.6 fL (7.4-10.4); Monocytes # 0.8 10^3/uL (0.2-0.9); Monocytes % 9.9 %; Neutrophils # 4.06 10^3/uL (1.8-7.7); Neutrophils % 53.7 %; Nucleated Red Blood Cells % 0 %; Platelet Count 240 10^3/cmm (130-400); Red Blood Count 4.95 10^6/uL (4.1-5.3); Red Cell Distribution Width 13.3 % (12.1-15.1); White Blood Count 7.6 10^3/uL (4.0-10.0)
[2021-03-30 13:47] LABS: Alanine Aminotransferase 17 U/L (0-41); Albumin Level 3.4 g/dL (3.5-5.2); Alkaline Phosphatase 66 IU/L (40-130); Anion Gap 15.1 (5-19); Aspartate Amino Transferase 9 U/L (0-40); Blood Urea Nitrogen 10 mg/dL (6-20); Calcium 8.5 mg/dL (8.5-10.5); Carbon Dioxide 23 mmol/L (22-29); Chloride 101 mmol/L (98-107); Globulin 2.5 g/dL (1.3-4.6); Glomerular Filtration Rate 124.9 mL/min (90-130); Glucose 98 mg/dL (65-115); Lipase 47 U/L (13-60); Osmolality Calculated 279 mOsm/kg (285-295); Potassium 4.1 mmol/L (3.5-5.1); Sodium 135 mmol/L (136-145); Total Bilirubin 0.3 mg/dL (0.15-1.2); Total Protein 5.9 g/dL (6.6-8.7)
[2021-03-30] MEDS: hyoscyamine ODT 0.125 mg Tablet 0.25 MG PO (14:01)
[2021-03-30] MEDS: ampicillin-sulbactam 3 GM in sodium chloride 0.9% (plus) 50 ML IV (14:01)
[2021-03-30 14:19] LABS: Bilirubin Urine Neg (Negative); Blood Urine Neg (Negative); Glucose Urine UA 1+ (Normal); Ketones Urine 1+ (Negative); Nitrate Urine Negative (Negative); Protein Urine Neg (Negative); Urine Appearance Clear (CLEAR); Urine Color Yellow (Yellow); Urobilinogen Urine Norm (Negative); pH Urine 6 (5-7)
[2021-03-30 14:20] LABS: Add Urine Culture? No; Leukocyte Esterase Urine Trace (Negative); Mucus Urine 1+ /hpf; Squamous Epithelial Cell Urine 0-4 /hpf (0-5); WBC Urine 0-4 /hpf (0-5)
[2021-03-30 14:25] VITALS: BP 113/63; PULSE 68; RESP 18; O2SAT 93
== END 2021-03-30 14:29 | disposition home or self-care (01) ==
PROVIDERS: Emergency Provider Emergency Medicine; PCP Nurse Practitioner Family
DX: K52.9 Noninfective gastroenteritis and colitis, unspecified (principal); Z79.01 Long term (current) use of anticoagulants; Z79.84 Long term (current) use of oral hypoglycemic drugs; Z79.82 Long term (current) use of aspirin; Z86.711 Personal history of pulmonary embolism; I10 Essential (primary) hypertension; E11.9 Type 2 diabetes mellitus without complications; F17.210 Nicotine dependence, cigarettes, uncomplicated
CPT/HCPCS: 74176; 80053; 81001; 83690; 85025; 96365; 96375; 99283; J0295; J2270; J7030

== ENCOUNTER 2021-06-24 13:48 | Emergency (ER) | payer MEDICAID, SELFPAY ==
[2021-06-24 14:18] VITALS: BP 163/91; PULSE 54; RESP 18; TEMP 36.6; O2SAT 99; BMI 36.7
[2021-06-24 16:10] LABS: Basophils % 0.2 %; Hematocrit 50.6 % (42.0-52.0); Hemoglobin 17.2 g/dL (11.7-16.6); Lymphocytes # 1.3 10^3/uL (0.8-4.8); Lymphocytes % 11.9 %; Mean Corpuscular Hemoglobin 29.2 pg (28.0-34.0); Mean Corpuscular Volume 85.8 fl (80-94); Mean Platelet Volume 9.5 fL (7.4-10.4); Monocytes # 0.4 10^3/uL (0.2-0.9); Monocytes % 3.4 %; Neutrophils # 8.89 10^3/uL (1.8-7.7); Neutrophils % 84.2 %; Nucleated Red Blood Cells % 0 %; Platelet Count 276 10^3/cmm (130-400); Red Cell Distribution Width 13.4 % (12.1-15.1); White Blood Count 10.6 10^3/uL (4.0-10.0)
[2021-06-24 16:27] LABS: Alanine Aminotransferase 33 U/L (0-41); Albumin Level 4.7 g/dL (3.5-5.2); Alkaline Phosphatase 83 IU/L (40-130); Anion Gap 17.7 (5-19); Aspartate Amino Transferase 15 U/L (0-40); Blood Urea Nitrogen 15 mg/dL (6-20); Calcium 8.9 mg/dL (8.5-10.5); Carbon Dioxide 27 mmol/L (22-29); Chloride 97 mmol/L (98-107); Globulin 2.9 g/dL (1.3-4.6); Glomerular Filtration Rate 106.5 mL/min (90-130); Glucose 151 mg/dL (65-115); Lipase 22 U/L (13-60); Osmolality Calculated 290 mOsm/kg (285-295); Potassium 3.7 mmol/L (3.5-5.1); Sodium 138 mmol/L (136-145); Total Bilirubin 0.6 mg/dL (0.15-1.2); Total Protein 7.6 g/dL (6.6-8.7)
--- NOTE | 2021-06-24 16:43 | CTR_ITS ---
PROCEDURE INFORMATION: Exam: CT Abdomen And Pelvis With Contrast Exam date and time: 06/24/2021 5:04 PM Age: 41 years old Clinical indication: Nausea and vomiting; Abdominal pain; Generalized; Patient HX: C/O sudden onset abd pain w n/v this am; Additional info: Diffuse abdominal pain, n/v/d TECHNIQUE: Imaging protocol: Computed tomography of the abdomen and pelvis with contrast. Radiation optimization: All CT scans at this facility use at least one of these dose optimization techniques: automated exposure control; mA and/or kV adjustment per patient size (includes targeted exams where dose is matched to clinical indication); or iterative reconstruction. Contrast material: OMNI 300; Contrast volume: 95 ml; Contrast route: INTRAVENOUS (IV); COMPARISON: CT abdomen pelvis wo con [id number] 03/30/2021 12:25 PM RADIATION DOSE METRICS: Total DLP (mGy-cm): 2087.56 FINDINGS: Cardiomegaly is identified. Liver: Normal. No mass. Gallbladder and bile ducts: Normal. No calcified stones. No ductal dilation. Pancreas: Normal. No ductal dilation. Spleen: Normal. No splenomegaly. Adrenal glands: Normal. No mass. Kidneys and ureters: Normal. No hydronephrosis. Stomach and bowel: Unremarkable. No obstruction. No mucosal thickening. Appendix: The appendix is visualized and appears normal. Intraperitoneal space: Unremarkable. No free air. No significant fluid collection. Arteries: Unremarkable. No abdominal aortic aneurysm. Lymph nodes: Unremarkable. No enlarged lymph nodes. Urinary bladder: Unremarkable as visualized. Reproductive: Unremarkable as visualized. Bones/joints: Unremarkable. No acute fracture. Soft tissues: Unremarkable. CT/CT abdomen pelvis w con* [id number] IMPRESSION: There are no acute concerning abnormalities.
--- NOTE | 2021-06-24 16:43 | W.ED.ABDPA2 ---
Documented by User: GAYLE Baxter 06/24/21 16:45 HPI - Abdominal Pain General: Chief Complaint: Abdominal Pain Stated Complaint: abd pain Time Seen by Provider: 06/24/21 16:10 Source: patient Mode of arrival: ambulatory Limitations: no limitations History of Present Illness: Patient is a nice 41-year-old male presents to ED today with a complaint of diffuse abdominal pain that began around 6 AM this morning when he awoke from sleep. Patient states pain initially began in his upper abdomen and has now spread diffusely. He states he is having severe nausea and has had approximately 10 episodes of nonbloody emesis today. He states he has had a little bit of diarrhea starting yesterday. He tells me he has a history of Crohn's/UC that has been untreated as he is currently awaiting his insurance to approve medications. He states his pain today does not feel like a previous flare. He is not running fevers. No urinary symptoms. PMH significant for HTN, DM, Crohn's/UC, and DVT/PEs currently anticoagulated. MD elicited complaint: abdominal pain Pertinent past history: none Onset (ago): hour(s) Pain Consistency: constant Location: Diffuse Severity: severe Pain scale (0-10): 10 COUNT INCLUDES THE [facility] ED PFSH: Medical History (Updated 06/24/21 @ 18:02 by AZUCENA Conn) Acute pulmonary embolism 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 Hypertension -Continue to monitor vital signs -Continue ACEi Morbid obesity -BMI-41 kg/m2 Non-insulin dependent diabetes mellitus -poorly controlled, A1c-11.2 -noted significant hyperglycemia, Accucheks, ISS, hypoglycemia precautions -consistent carb diet as tolerated -has been unable to tolerate metformin in the past (significant diarrhea, abdominal pain, N/V); will initiate glipizide (cost issues) which PCP will need to titrate SOB (shortness of breath) Surgical History H/O lymph node excision History of angioplasty of vein Left lower extremity Family History Other Cancer Heart disease Social History Smoking and tobacco status: current every day smoker cigarettes Years cigarettes smoked: 21 Quit status (tobacco): considering quitting Smoking risk assessment/counseling performed?: Yes Alcohol intake: current Alcohol intake frequency: few times a month Counseling given: No Counseling given: No Lives independently: Yes Household members: spouse Marital status: Current occupational status: employed 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 Laboratory Results WBC 10.6 10^3/uL (4.0-10.0) H 06/24/21 16:04 RBC 5.90 10^6/uL (4.1-5.3) H 06/24/21 16:04 Hgb 17.2 g/dL (11.7-16.6) H 06/24/21 16:04 Hct 50.6 % (42.0-52.0) 06/24/21 16:04 MCV 85.8 fl (80-94) 06/24/21 16:04 MCH 29.2 pg (28.0-34.0) 06/24/21 16:04 MCHC 34.0 g/dL (30.0-36.0) 06/24/21 16:04 RDW 13.4 % (12.1-15.1) 06/24/21 16:04 Plt Count 276 10^3/cmm (130-400) 06/24/21 16:04 MPV 9.5 fL (7.4-10.4) 06/24/21 16:04 Neut % (Auto) 84.2 % 06/24/21 16:04 Lymph % (Auto) 11.9 % 06/24/21 16:04 [place] % (Auto) 3.4 % 06/24/21 16:04 Eos % (Auto) 0.0 % 06/24/21 16:04 Baso % (Auto) 0.2 % 06/24/21 16:04 Neut # (Auto) 8.89 10^3/uL (1.8-7.7) H 06/24/21 16:04 Lymph # (Auto) 1.3 10^3/uL (0.8-4.8) 06/24/21 16:04 [place] # (Auto) 0.4 10^3/uL (0.2-0.9) 06/24/21 16:04 Eos # (Auto) 0.0 10^3/uL (0.0-0.8) 06/24/21 16:04 Baso # (Auto) 0.0 10^3/uL (0.0-0.1) 06/24/21 16:04 Nucleated RBC % (auto) 0 % 06/24/21 16:04 Nucleated RBCs # 0.0 /100WBC 06/24/21 16:04 Sodium 138 mmol/L (136-145) 06/24/21 16:04 Potassium 3.7 mmol/L (3.5-5.1) 06/24/21 16:04 Chloride 97 mmol/L (98-107) L 06/24/21 16:04 Carbon Dioxide 27 mmol/L (22-29) 06/24/21 16:04 Anion Gap 17.7 (5-19) 06/24/21 16:04 BUN 15 mg/dL (6-20) 06/24/21 16:04 Creatinine 0.8 mg/dL (0.7-1.2) 06/24/21 16:04 GFR Calculation 106.5 mL/min (90-130) 06/24/21 16:04 Glucose 151 mg/dL (65-115) H 06/24/21 16:04 Calculated Osmolality 290 mOsm/kg (285-295) 06/24/21 16:04 Calcium 8.9 mg/dL (8.5-10.5) 06/24/21 16:04 Total Bilirubin 0.6 mg/dL (0.15-1.2) 06/24/21 16:04 AST 15 U/L (0-40) 06/24/21 16:04 ALT 33 U/L (0-41) 06/24/21 16:04 Alkaline Phosphatase 83 IU/L (40-130) 06/24/21 16:04 Total Protein 7.6 g/dL (6.6-8.7) 06/24/21 16:04 Albumin 4.7 g/dL (3.5-5.2) 06/24/21 16:04 Globulin 2.9 g/dL (1.3-4.6) 06/24/21 16:04 Lipase 22 U/L (13-60) 06/24/21 16:04 Discharge Plan Discharge Patient Disposition: Home Clinical Impression: Abdominal pain Condition: Stable Prescriptions: New Reglan 5 mg tablet 5 mg PO TID PRN (Reason: nausea and vomiting) Qty: 10 0RF No Action atorvastatin 20 mg tablet 20 mg PO DAILY 0RF Januvia 25 mg tablet 25 mg PO DAILY 0RF glipizide 5 mg tablet 5 mg PO DAILY 0RF Eliquis 5 mg tablet 5 mg PO BID 0RF (DME) comp.stocking,thigh,long,large Misc See Rx Instructions .ROUTE .MEDSUPPLY Qty: 2 0RF Rx Instructions: As directed aspirin 81 mg tablet,delayed release (DR/EC) 81 mg PO DAILY 0RF azelastine 137 mcg (0.1 %) aerosol,spray 2 spray intranasal BID 30 Days Qty: 30 1RF Rx Instructions: administer into each nostril Men's Daily 1 cap PO DAILY 0RF hydrocodone-acetaminophen 5-325 mg tablet 1 tab PO Q6H PRN (Reason: pain) Qty: 14 0RF ondansetron 4 mg tablet,disintegrating 4 mg PO Q6H PRN (Reason: nausea and vomiting) Qty: 14 0RF lisinopril 20 mg Tablet 20 mg PO DAILY 0RF fluoxetine 40 mg capsule 40 mg PO DAILY 0RF triamcinolone acetonide 0.025 % ointment 1 applic TOPICAL BID PRN (Reason: Rash) 0RF ProAir HFA 90 mcg/actuation HFA aerosol inhaler 2 puff INHALATION Q6H PRN (Reason: Shortness Of Breath) 0RF Augmentin 875-125 mg tablet 1 tab PO BID Qty: 14 0RF Levsin 0.125 mg tablet 0.125 mg PO Q6H PRN (Reason: abdominal discomfort) Qty: 30 0RF Discharge Orders: Discharge ED (Routine); Ordered 06/24/21 Ordered By: Paul Restrepo Referrals: Karen Badillo NP [Primary Care Provider] - Discharge Diet: Advance as tolerated Discharge Activity: Increase activity as tolerated Patient Instructions: Gastroenteritis (ED) Activity Restrictions/Additional Instructions: Follow-up with medical provider as directed. Take medications as prescribed. Return to the ER or your medical provider if condition worsens. Please read and understand discharge instructions. If any questions ask please. Coding Level of Care Code ED Internal Communications Writer for Chg Fwd Exam Comprehensive Documented by User: [email or web address] Conn 06/24/21 18:04 HPI - Abdominal Pain General: Chief Complaint: Abdominal Pain Stated Complaint: abd pain Time Seen by Provider: 06/24/21 16:10 History of Present Illness: Associated Symptoms: Reports diarrhea, nausea and vomiting; Denies chills and fever(s) Review of Systems Const: Denies: fever(s), chills or body aches Eyes: Denies: eye discomfort ENMT: Denies: throat pain Card: Denies: chest pain Resp: Denies: dyspnea GI: Reports: abdominal pain (Will quit 6:00 this morning. Has had vomiting x10 episodes he thinks.), nausea, vomiting and diarrhea Skin/Breast: Denies: rash Neuro: Denies: headache(s) Psych: Denies: depression or suicidal ideation COUNT INCLUDES THE [facility] ED PFSH: Medical History (Updated 06/24/21 @ 18:02 by AZUCENA Conn) Acute pulmonary embolism 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 Hypertension -Continue to monitor vital signs -Continue ACEi Morbid obesity -BMI-41 kg/m2 Non-insulin dependent diabetes mellitus -poorly controlled, A1c-11.2 -noted significant hyperglycemia, Accucheks, ISS, hypoglycemia precautions -consistent carb diet as tolerated -has been unable to tolerate metformin in the past (significant diarrhea, abdominal pain, N/V); will initiate glipizide (cost issues) which PCP will need to titrate SOB (shortness of breath) Surgical History H/O lymph node excision History of angioplasty of vein Left lower extremity Family History Other Cancer Heart disease Social History Smoking and tobacco status: current every day smoker cigarettes Years cigarettes smoked: 21 Quit status (tobacco): considering quitting Smoking risk assessment/counseling performed?: Yes Alcohol intake: current Alcohol intake frequency: few times a month Counseling given: No Counseling given: No Lives independently: Yes Household members: spouse Marital status: Current occupational status: employed 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 History of recent travel: No Current gender identity: Male Physical Exam Const: COMMON NORMALS: no acute distress, patient oriented x3 and alert HENMT: COMMON NORMALS: normocephalic and external ears normal HEAD & SCALP: normocephalic EXTERNAL EAR: Yes external ears normal Eye: COMMON NORMALS: EOMs intact bilaterally Neck/C-Spine: COMMON NORMALS: no JVD Resp: COMMON NORMALS: normal respiratory effort and No use of accessory muscles Cardio: COMMON NORMALS: no JVD GI: COMMON NORMALS: Soft to palpation INSPECTION: Yes normal to inspection AUSCULTATION: Yes normoactive bowel sounds PALPATION: Yes Soft to palpation and Yes Tenderness to palpation present (GI) (Diffuse mild tenderness) Extremity: COMMON NORMALS: normal to inspection and full ROM Neuro: COMMON NORMALS: patient oriented x3 SENSORIUM/ORIENTATION: Yes alert Psych: COMMON NORMALS: mental status grossly normal Skin: COMMON NORMALS: no rashes or lesions noted GENERAL SKIN EXAM: no rashes or lesions noted Course Vital Signs: Vital signs: Vital Signs Temperature 97.9 F 06/24/21 14:18 Pulse Rate 54 L 06/24/21 14:18 Respiratory Rate 16 06/24/21 16:55 Blood Pressure 163/91 06/24/21 14:18 Pulse Oximetry 97 06/24/21 16:55 MDM - Abdominal Pain Medical Decision Making Laboratories studies were negative for any concerning findings. CT did not show any acute findings. Patient has signs symptoms consistent with a gastroenteritis. Reglan worked well and patient was sleeping in the room. Patient given 1 bag of fluid. Patient was given a prescription for Reglan for home use follow-up primary care provider Lab Data : 06/24/21 16:04 06/24/21 16:04 Labs/Radiology: Radiology Impressions Abdomen/Pelvis CT 06/24/21 16:43 IMPRESSION: There are no acute concerning abnormalities. Laboratory Results WBC 10.6 10^3/uL (4.0-10.0) H 06/24/21 16:04 RBC 5.90 10^6/uL (4.1-5.3) H 06/24/21 16:04 Hgb 17.2 g/dL (11.7-16.6) H 06/24/21 16:04 Hct 50.6 % (42.0-52.0) 06/24/21 16:04 MCV 85.8 fl (80-94) 06/24/21 16:04 MCH 29.2 pg (28.0-34.0) 06/24/21 16:04 MCHC 34.0 g/dL (30.0-36.0) 06/24/21 16:04 RDW 13.4 % (12.1-15.1) 06/24/21 16:04 Plt Count 276 10^3/cmm (130-400) 06/24/21 16:04 MPV 9.5 fL (7.4-10.4) 06/24/21 16:04 Neut % (Auto) 84.2 % 06/24/21 16:04 Lymph % (Auto) 11.9 % 06/24/21 16:04 [place] % (Auto) 3.4 % 06/24/21 16:04 Eos % (Auto) 0.0 % 06/24/21 16:04 Baso % (Auto) 0.2 % 06/24/21 16:04 Neut # (Auto) 8.89 10^3/uL (1.8-7.7) H 06/24/21 16:04 Lymph # (Auto) 1.3 10^3/uL (0.8-4.8) 06/24/21 16:04 [place] # (Auto) 0.4 10^3/uL (0.2-0.9) 06/24/21 16:04 Eos # (Auto) 0.0 10^3/uL (0.0-0.8) 06/24/21 16:04 Baso # (Auto) 0.0 10^3/uL (0.0-0.1) 06/24/21 16:04 Nucleated RBC % (auto) 0 % 06/24/21 16:04 Nucleated RBCs # 0.0 /100WBC 06/24/21 16:04 Sodium 138 mmol/L (136-145) 06/24/21 16:04 Potassium 3.7 mmol/L (3.5-5.1) 06/24/21 16:04 Chloride 97 mmol/L (98-107) L 06/24/21 16:04 Carbon Dioxide 27 mmol/L (22-29) 06/24/21 16:04 Anion Gap 17.7 (5-19) 06/24/21 16:04 BUN 15 mg/dL (6-20) 06/24/21 16:04 Creatinine 0.8 mg/dL (0.7-1.2) 06/24/21 16:04 GFR Calculation 106.5 mL/min (90-130) 06/24/21 16:04 Glucose 151 mg/dL (65-115) H 06/24/21 16:04 Calculated Osmolality 290 mOsm/kg (285-295) 06/24/21 16:04 Calcium 8.9 mg/dL (8.5-10.5) 06/24/21 16:04 Total Bilirubin 0.6 mg/dL (0.15-1.2) 06/24/21 16:04 AST 15 U/L (0-40) 06/24/21 16:04 ALT 33 U/L (0-41) 06/24/21 16:04 Alkaline Phosphatase 83 IU/L (40-130) 06/24/21 16:04 Total Protein 7.6 g/dL (6.6-8.7) 06/24/21 16:04 Albumin 4.7 g/dL (3.5-5.2) 06/24/21 16:04 Globulin 2.9 g/dL (1.3-4.6) 06/24/21 16:04 Lipase 22 U/L (13-60) 06/24/21 16:04 Discharge Plan Discharge Patient Disposition: Home Clinical Impression: Abdominal pain Condition: Stable Prescriptions: New Reglan 5 mg tablet 5 mg PO TID PRN (Reason: nausea and vomiting) Qty: 10 0RF No Action atorvastatin 20 mg tablet 20 mg PO DAILY 0RF Januvia 25 mg tablet 25 mg PO DAILY 0RF glipizide 5 mg tablet 5 mg PO DAILY 0RF Eliquis 5 mg tablet 5 mg PO BID 0RF (DME) comp.stocking,thigh,long,large Misc See Rx Instructions .ROUTE .MEDSUPPLY Qty: 2 0RF Rx Instructions: As directed aspirin 81 mg tablet,delayed release (DR/EC) 81 mg PO DAILY 0RF azelastine 137 mcg (0.1 %) aerosol,spray 2 spray intranasal BID 30 Days Qty: 30 1RF Rx Instructions: administer into each nostril Men's Daily 1 cap PO DAILY 0RF hydrocodone-acetaminophen 5-325 mg tablet 1 tab PO Q6H PRN (Reason: pain) Qty: 14 0RF ondansetron 4 mg tablet,disintegrating 4 mg PO Q6H PRN (Reason: nausea and vomiting) Qty: 14 0RF lisinopril 20 mg Tablet 20 mg PO DAILY 0RF fluoxetine 40 mg capsule 40 mg PO DAILY 0RF triamcinolone acetonide 0.025 % ointment 1 applic TOPICAL BID PRN (Reason: Rash) 0RF ProAir HFA 90 mcg/actuation HFA aerosol inhaler 2 puff INHALATION Q6H PRN (Reason: Shortness Of Breath) 0RF Augmentin 875-125 mg tablet 1 tab PO BID Qty: 14 0RF Levsin 0.125 mg tablet 0.125 mg PO Q6H PRN (Reason: abdominal discomfort) Qty: 30 0RF Discharge Orders: Discharge ED (Routine); Ordered 06/24/21 Ordered By: Paul Restrepo Referrals: Karen Badillo NP [Primary Care Provider] - Discharge Diet: Advance as tolerated Discharge Activity: Increase activity as tolerated Patient Instructions: Gastroenteritis (ED) Activity Restrictions/Additional Instructions: Follow-up with medical provider as directed. Take medications as prescribed. Return to the ER or your medical provider if condition worsens. Please read and understand discharge instructions. If any questions ask please. Coding Level of Care Code ED Internal Communications Writer for Chg Fwd Exam Comprehensive Documented by User: Lito Rudolph DO 06/26/21 14:03 HPI - Abdominal Pain General: Chief Complaint: Abdominal Pain Stated Complaint: abd pain Time Seen by Provider: 06/24/21 16:10 COUNT INCLUDES THE [facility] ED PFSH: Medical History (Updated 06/24/21 @ 18:02 by AZUCENA Conn) Acute pulmonary embolism 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 Hypertension -Continue to monitor vital signs -Continue ACEi Morbid obesity -BMI-41 kg/m2 Non-insulin dependent diabetes mellitus -poorly controlled, A1c-11.2 -noted significant hyperglycemia, Accucheks, ISS, hypoglycemia precautions -consistent carb diet as tolerated -has been unable to tolerate metformin in the past (significant diarrhea, abdominal pain, N/V); will initiate glipizide (cost issues) which PCP will need to titrate SOB (shortness of breath) Surgical History H/O lymph node excision History of angioplasty of vein Left lower extremity Family History Other Cancer Heart disease Social History Smoking and tobacco status: current every day smoker cigarettes Years cigarettes smoked: 21 Quit status (tobacco): considering quitting Smoking risk assessment/counseling performed?: Yes Alcohol intake: current Alcohol intake frequency: few times a month Counseling given: No Counseling given: No Lives independently: Yes Household members: spouse Marital status: Current occupational status: employed 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 CT did not show any acute findings. Patient has signs symptoms consistent with a gastroenteritis. Reglan worked well and patient was sleeping in the room. Patient given 1 bag of fluid. Patient was given a prescription for Reglan for home use follow-up primary care provider Chart reviewed and patient discussed with midlevel. Agree with assessment and plan. Lab Data : 06/24/21 16:04 06/24/21 16:04 Labs/Radiology: Radiology Impressions Abdomen/Pelvis CT 06/24/21 16:43
[2021-06-24 16:55] VITALS: RESP 16; O2SAT 97
[2021-06-24] MEDS: morphine 4 mg/mL SDV 1 mL IVP (16:55)
[2021-06-24] MEDS: ondansetron 2 mg/ML SDV 2 mL 4 MG IVP (16:56)
[2021-06-24] MEDS: sodium chloride 0.9% 1,000 ML 999 ML IV (16:56)
[2021-06-24] MEDS: iohexol 300 mg/mL 100 mL Btl IV (17:05)
[2021-06-24] MEDS: metoclopramide 5 mg/mL SDV 2 mL IVP (17:28)
== END 2021-06-24 18:20 | disposition home or self-care (01) ==
PROVIDERS: Physician Assistant; Emergency Provider Nurse Practitioner Family; PCP Nurse Practitioner Family
DX: R10.9 Unspecified abdominal pain (principal); F17.210 Nicotine dependence, cigarettes, uncomplicated
CPT/HCPCS: 74177; 80053; 83690; 85025; 96361; 96374; 96375; 99284; J2270; J2405; J2765; J7030; Q9967

== ENCOUNTER 2021-06-26 16:18 | Outpatient (CLI) | payer MEDICAID, SELFPAY ==
[2021-06-26 18:02] LABS: Basophils # 0.1 10^3/uL (0.0-0.1); Basophils % 0.5 %; Eosinophils % 0.2 %; Hematocrit 52.4 % (42.0-52.0); Hemoglobin 17.6 g/dL (11.7-16.6); Lymphocytes # 3.4 10^3/uL (0.8-4.8); Mean Corpuscular HGB Conc 33.6 g/dL (30.0-36.0); Mean Corpuscular Volume 86.5 fl (80-94); Mean Platelet Volume 10.3 fL (7.4-10.4); Monocytes # 1.1 10^3/uL (0.2-0.9); Monocytes % 7.5 %; Neutrophils # 10.09 10^3/uL (1.8-7.7); Neutrophils % 68.5 %; Nucleated Red Blood Cells % 0 %; Platelet Count 308 10^3/cmm (130-400); Red Blood Count 6.06 10^6/uL (4.1-5.3); Red Cell Distribution Width 13.5 % (12.1-15.1); White Blood Count 14.7 10^3/uL (4.0-10.0)
[2021-06-26 18:28] LABS: Anion Gap 17.6 (5-19); Blood Urea Nitrogen 19 mg/dL (6-20); Calcium 9.3 mg/dL (8.5-10.5); Carbon Dioxide 31 mmol/L (22-29); Chloride 91 mmol/L (98-107); Glomerular Filtration Rate 60.8 mL/min (90-130); Glucose 163 mg/dL (65-115); Osmolality Calculated 288 mOsm/kg (285-295); Potassium 3.6 mmol/L (3.5-5.1); Sodium 136 mmol/L (136-145)
== END 2021-06-26 16:19 | disposition home or self-care (01) ==
LOC: LAB 16:20
PROVIDERS: PCP Nurse Practitioner Family; Visit Provider Nurse Practitioner Family
DX: R11.2 Nausea with vomiting, unspecified (principal)
CPT/HCPCS: 36415; 80048; 85025

== ENCOUNTER 2021-06-28 11:43 | Inpatient (IN) | payer MEDICAID, SELFPAY ==
[2021-06-28] VITALS (12 sets, daily range): BP systolic 110–124; BP diastolic 75–81; PULSE 54–82; RESP 12–20; TEMP 36.6–36.8; O2SAT 61–100
--- NOTE | 2021-06-28 12:25 | ED_ITS ---
HPI - Abdominal Pain General: Chief Complaint: Abdominal Pain Stated Complaint: CP Time Seen by Provider: 06/28/21 12:02 Source: patient Mode of arrival: ambulatory Limitations: no limitations History of Present Illness: 41-year-old male presents emergency room with chest and abdominal pain. He was seen couple days ago CT abdomen pelvis did not show anything acute. He is persistently had abdominal discomfort now he has pain in his chest with some shortness of breath. Patient relates that he histo ry of DVT and is currently on Eliquis has not been able to keep anything else down his had a lot of nausea and vomiting he missed a few days earlier this week over the weekend of Eliquis but has been taking it just recently. He denies any fever sweats chills no dysuria urgency or frequency urine has been concentrated but no gross hematuria no hematochezia or melena. He is diabetic his blood suga rs have been significantly elevated recently. He has no known history of coronary artery disease. MD elicited complaint: abdominal pain Pertinent past history: none Onset (ago): day(s) (5) Pain Consistency: constant Location: Epigastric Severity: moderate Radiation: none Exacerbating factors: nothing Relieving factors: nothing Associated Symptoms: Reports vomiting; Denies anorexia, belching, bloating, change in bowel habits, change in stool character, chills, coffee ground emesis, constipation, GI cramping, diarrhea, dyspepsia, dysuria, excessive flatus, fever(s), heartburn, hematochezia, hematuria, hematemesis, fecal incontinence, loose stools, melena, nausea, poor appetite and syncope Review of Systems Const: Denies: fever(s) or chills ENMT: Denies: throat pain, ear or mastoid pain, nasal discharge or nasal congestion Card: Reports: chest pain; Denies: palpitations, irregular heart rhythm, edema or syncope Resp: Denies: dyspnea, productive cough or non-productive cough GI: Reports: abdominal pain and vomiting; Denies: nausea, hematemesis, coffee ground emesis, heartburn, diarrhea, constipation, bloating, GI cramping, belching, excessive flatus, fecal incontinence, change in bowel habits, change in stool character, hematochezia or melena : Denies: dysuria or hematuria Skin/Breast: Denies: rash or pruritus PFSH ED PFSH: Medical History (Updated 06/29/21 @ 15:42 by Lito Rudolph DO) Acute pulmonary embolism 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 Hypertension -Continue to monitor vital signs -Continue ACEi Morbid obesity -BMI-41 kg/m2 Non-insulin dependent diabetes mellitus -poorly controlled, A1c-11.2 -noted significant hyperglycemia, Accucheks, ISS, hypoglycemia precautions -consistent carb diet as tolerated -has been unable to tolerate metformin in the past (significant diarrhea, abd ominal pain, N/V); will initiate glipizide (cost issues) which PCP will need to titrate SOB (shortness of breath) Surgical History H/O lymph node excision History of angioplasty of vein Left lower extremity Family History Other Cancer Heart disease Social History Smoking and tobacco status: current every day smoker cigarettes Years cigarettes smoked: 21 Quit status (tobacco): considering quitting Smoking risk assessment/counseling performed?: Yes Alcohol intake: current Alcohol intake frequency: few times a month Counseling given: No Counseling given: No Lives independently: Yes Household members: spouse Marital status: Current occupational status: employed 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 History of recent travel: No Current gender identity: Male Physical Exam Const: COMMON NORMALS: no acute distress GENERAL APPEARANCE: cooperative and comfortable ORIENTATION/CONSCIOUSNESS: Yes awake, Yes oriented to person, Yes oriented to place and Yes oriented to time HENMT: COMMON NORMALS: normocephalic, atraumatic and hearing grossly normal bilaterally HEAD & SCALP: normocephalic and atraumatic Neck/C-Spine: COMMON NORMALS: no JVD Resp: COMMON NORMALS: normal respiratory effort, No retractions, No use of accessory muscles and clear to auscultation bilaterally AUSCULTATION: clear to auscultation bilaterally Cardio: COMMON NORMALS: no JVD, regular rate, regular rhythm and No murmurs present (Cardio) RATE: regular rate RHYTHM: regular rhythm GI: COMMON NORMALS: No hepatosplenomegaly present AUSCULTATION: Yes normoactive bowel sounds PALPATION: Yes Tenderness to palpation present (GI) (Epigastric), No Guarding due to palpation present (GI) and Yes No hepatosplenomegaly present : COMMON NORMALS: Yes no CVA tenderness BLADDER/KIDNEY EXAM: Yes no CVA tenderness Back/Pelvis: COMMON NORMALS: no CVA tenderness Extremity: COMMON NORMALS: normal to inspection, capillary refill normal, no clubbing, cyanosis or edema, no calf tenderness and no pedal edema Neuro: SENSORIUM/ORIENTATION: Yes oriented to person, Yes oriented to place and Yes oriented to time Skin: COMMON NORMALS: no rashes or lesions noted GENERAL SKIN EXAM: no rashes or lesions noted Course Vital Signs: Vital signs: Vital Signs Temperature 98.2 F 06/29/21 11:24 Pulse Rate 53 L 06/29/21 11:24 Respiratory Rate 16 06/29/21 11:24 Blood Pressure 109/72 06/29/21 11:24 Pulse Oximetry 95 06/29/21 11:24 MDM - Abdominal Pain Medical Decision Making 04 chilis not able to take anything p.o. in the few days he was unable to he is redeveloped more PEs. We will hospitalize him GI rest IV fluids antiemetics and bridge with Lovenox discussed with hospitalist orders written Medical Records I reviewed the patient's medical records. Lab Data I reviewed the patient's lab results. : 06/29/21 06:07 06/29/21 06:07 Labs/Radiology: Radiology Impressions Chest/Abdomen/Pelvis CT 06/28/21 12:32 IMPRESSION: 1. Numerous bilateral nonobstructive pulmonary emboli. Emboli begin in the proximal lower lobe pulmonary artery. Mild embolic burden. 2. No RIGHT heart strain. No pneumonia. 3. Indeterminate but mildly prominent RIGHT lower lobe intralobar lymph node. 4. Normal appendix. 5. Stable subcutaneous gas soft tissue mass in the anterior RIGHT chest wall. Present since at least 2008 with slow growth. Laboratory Results WBC 8.3 10^3/uL (4.0-10.0) 06/28/21 12:40 RBC 5.77 10^6/uL (4.1-5.3) H 06/28/21 12:40 Hgb 16.6 g/dL (11.7-16.6) 06/28/21 12:40 Hct 49.8 % (42.0-52.0) 06/28/21 12:40 MCV 86.3 fl (80-94) 06/28/21 12:40 MCH 28.8 pg (28.0-34.0) 06/28/21 12:40 MCHC 33.3 g/dL (30.0-36.0) 06/28/21 12:40 RDW 13.2 % (12.1-15.1) 06/28/21 12:40 Plt Count 253 10^3/cmm (130-400) 06/28/21 12:40 MPV 9.7 fL (7.4-10.4) 06/28/21 12:40 Neut % (Auto) 59.9 % 06/28/21 12:40 Lymph % (Auto) 32.2 % 06/28/21 12:40 Hooker % (Auto) 6.7 % 06/28/21 12:40 Eos % (Auto) 0.6 % 06/28/21 12:40 Baso % (Auto) 0.5 % 06/28/21 12:40 Neut # (Auto) 4.94 10^3/uL (1.8-7.7) 06/28/21 12:40 Lymph # (Auto) 2.7 10^3/uL (0.8-4.8) 06/28/21 12:40 Hooker # (Auto) 0.6 10^3/uL (0.2-0.9) 06/28/21 12:40 Eos # (Auto) 0.1 10^3/uL (0.0-0.8) 06/28/21 12:40 Baso # (Auto) 0.0 10^3/uL (0.0-0.1) 06/28/21 12:40 Nucleated RBC % (auto) 0 % 06/28/21 12:40 Nucleated RBCs # 0.0 /100WBC 06/28/21 12:40 Sodium 137 mmol/L (136-145) 06/28/21 12:40 Potassium 3.2 mmol/L (3.5-5.1) L 06/28/21 12:40 Chloride 96 mmol/L (98-107) L 06/28/21 12:40 Carbon Dioxide 25 mmol/L (22-29) 06/28/21 12:40 Anion Gap 19.2 (5-19) H 06/28/21 12:40 BUN 15 mg/dL (6-20) 06/28/21 12:40 Creatinine 1.0 mg/dL (0.7-1.2) 06/28/21 12:40 GFR Calculation 82.3 mL/min (90-130) L 06/28/21 12:40 Glucose 132 mg/dL (65-115) H 06/28/21 12:40 Calculated Osmolality 287 mOsm/kg (285-295) 06/28/21 12:40 Lactic Acid 4.5 mmol/L (0.5-2.2) H* 06/28/21 12:40 Calcium 8.4 mg/dL (8.5-10.5) L 06/28/21 12:40 Total Bilirubin 0.8 mg/dL (0.15-1.2) 06/28/21 12:40 AST 11 U/L (0-40) 06/28/21 12:40 ALT 19 U/L (0-41) 06/28/21 12:40 Alkaline Phosphatase 76 IU/L (40-130) 06/28/21 12:40 Troponin T Baseline 7 ng/L (0-15) 06/28/21 12:40 Total Protein 6.5 g/dL (6.6-8.7) L 06/28/21 12:40 Albumin 4.1 g/dL (3.5-5.2) 06/28/21 12:40 Globulin 2.4 g/dL (1.3-4.6) 06/28/21 12:40 Lipase 27 U/L (13-60) 06/28/21 12:40 Discharge Plan Discharge Patient Disposition: Admitted As Inpatient Admit Provider: Wilver Hernandez Clinical Impression: Pulmonary embolism, Abdominal pain, Hypertension, Morbid obesity, Nausea & vomiting Condition: Stable Coding Level of Care Code ED Morning Show Producer for Jack Reeves
--- NOTE | 2021-06-28 12:32 | CT_ITS ---
WS: [id number] CTA CHEST WITH CT ABDOMEN AND PELVIS. HISTORY: Dyspnea, chest pain for 3 days. Nausea. TECHNIQUE: CT angiogram is performed through the chest. Additional imaging is performed through the a bdomen and pelvis with IV contrast. Sagittal and coronal reformats have been submitted. MIP imaging also reviewed. All CT scans at [facility] use at least one of these dose optimization techniqu es: automated exposure control; mA and/or kV adjustment per patient size (includes targeted exams whe re dose is matched to clinical indication); or iterative reconstruction. Contrast: Omnipaque 350; 95 cc IV. DLP: 2483.38 mGy.cm COMPARISON: 06/24/2021 Chest CTA: There are numerous small bilateral emboli within the pulmonary arteries. No central emboli sm is identified. The emboli are nonobstructing and begin within the proximal bilateral lower lobe pu lmonary arteries. There are additional more peripheral and small segmental and subsegmental emboli bi laterally in the upper and lower lobes. No RIGHT heart strain. Pulmonary artery size is normal. No pe ricardial effusion. No pneumonia. Benign granuloma RIGHT lower lobe. Indeterminate 9 mm nodule along the RIGHT lower lobe interlobar pulmonary artery. Otherwise lymph nodes are subcentimeter. Stable wel l-circumscribed superficial soft tissue mass along the anterior RIGHT chest wall measuring 4.2 x [address]: Liver, spleen, pancreas, gallbladder and adrenal glands are negative. Mild atheroscleroti c plaque within the aorta. No renal obstruction. Normal enhancement of the portal vein. No filling de fect in the proximal SMA or celiac axis. No fluid or adenopathy. Mild increased soft tissue through the duodenum with fluid. No abnormality wa s noted in this location on the prior examination. There could be redundant soft tissue or a small du odenal diverticulum. No mass identified. The appendix is normal. No submucosal edema or mucosal enhan cement. Suggest very minimal fluid distention of the small bowel with no obstructive pattern. No hype remia. Pelvic CT: Well-distended urinary bladder. No free fluid in the pelvis or adenopathy. No osseous dest ructive process identified. CT/CT angio chest w abd pel w con IMPRESSION: 1. Numerous bilateral nonobstructive pulmonary emboli. Emboli begin in the pro ximal lower lobe pulmonary artery. Mild embolic burden. 2. No RIGHT heart strain. No pneumonia. 3. Indeterminate but mildly prominent RIGHT lower lobe intralobar lymph node. 4. Normal appendix. 5. Stable subcutaneous gas soft tissue mass in the anterior RIGHT chest wall. Present since at least 2008 with slow growth.
--- NOTE | 2021-06-28 12:37 | ECG_ITS ---
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 Measurements Intervals [place] Rate: 82 P: 54 SD: 147 QRS: 28 QRSD: 98 T: 56 QT: 380 QTc: 446 Interpretive Statements SINUS RHYTHM INCOMPLETE RIGHT BUNDLE BRANCH BLOCK [90+ ms QRS DURATION, TERMINAL R IN V1/V2, 40+ ms S IN I/aVL/V4/V5/V6] Compared to ECG 07/26/2019 15:55:25 Incomplete right bundle-branch block now present Electronically Signed On 06-28-2021 16:53:39 CDT by Juan M Gallagher M.D. [id number]
[2021-06-28] MEDS: morphine 4 mg/mL SDV 1 mL IVP (12:47)
[2021-06-28] MEDS: ondansetron 2 mg/ML SDV 2 mL 4 MG IVP ×3 (12:47→19:16)
[2021-06-28] MEDS: lactated ringers 1,000 ML 999 ML IV ×2 (12:47→13:52)
[2021-06-28 12:52] LABS: Basophils % 0.5 %; Eosinophils # 0.1 10^3/uL (0.0-0.8); Eosinophils % 0.6 %; Hematocrit 49.8 % (42.0-52.0); Hemoglobin 16.6 g/dL (11.7-16.6); Lymphocytes # 2.7 10^3/uL (0.8-4.8); Lymphocytes % 32.2 %; Mean Corpuscular HGB Conc 33.3 g/dL (30.0-36.0); Mean Corpuscular Hemoglobin 28.8 pg (28.0-34.0); Mean Corpuscular Volume 86.3 fl (80-94); Mean Platelet Volume 9.7 fL (7.4-10.4); Monocytes # 0.6 10^3/uL (0.2-0.9); Monocytes % 6.7 %; Neutrophils # 4.94 10^3/uL (1.8-7.7); Neutrophils % 59.9 %; Nucleated Red Blood Cells % 0 %; Platelet Count 253 10^3/cmm (130-400); Red Blood Count 5.77 10^6/uL (4.1-5.3); Red Cell Distribution Width 13.2 % (12.1-15.1); White Blood Count 8.3 10^3/uL (4.0-10.0)
[2021-06-28] MEDS: iohexol 350 mg/mL 100 mL Btl IV (13:03)
[2021-06-28 13:15] LABS: Troponin(5th) Baseline 7 ng/L (0-15)
[2021-06-28 13:17] LABS: Alanine Aminotransferase 19 U/L (0-41); Albumin Level 4.1 g/dL (3.5-5.2); Alkaline Phosphatase 76 IU/L (40-130); Anion Gap 19.2 (5-19); Aspartate Amino Transferase 11 U/L (0-40); Blood Urea Nitrogen 15 mg/dL (6-20); Calcium 8.4 mg/dL (8.5-10.5); Carbon Dioxide 25 mmol/L (22-29); Chloride 96 mmol/L (98-107); Creatinine Clr Calc Pharmacy 150.9959; Globulin 2.4 g/dL (1.3-4.6); Glomerular Filtration Rate 82.3 mL/min (90-130); Glucose 132 mg/dL (65-115); Lipase 27 U/L (13-60); Osmolality Calculated 287 mOsm/kg (285-295); Potassium 3.2 mmol/L (3.5-5.1); Sodium 137 mmol/L (136-145); Total Bilirubin 0.8 mg/dL (0.15-1.2); Total Protein 6.5 g/dL (6.6-8.7)
[2021-06-28 13:36] LABS: Lactic Sepsis W/Reflex 4.5 mmol/L (0.5-2.2)
[2021-06-28] MEDS: morphine 4 mg/mL SDV 1 mL 6 MG IVP (13:51)
--- NOTE | 2021-06-28 14:21 | USCV_ITS ---
Uziel Chaparro Age: 41 Gender: M : 1980 Exam Date: 06/28/2021 14:45 Ordering Phys: Lito Rudolph DO Technologist: DANIKA [place]am Location[place] [facility] [place]ication: c/o shortness of breath. hx LLE DVT 2019 with pulmonary emboli. HISTORY: c/o shortness of breath. hx LLE DVT 2019 with pulmonary emboli. PROCEDURES: The venous duplex Doppler examination of both lower extremities was performed in the standard fashion. The following venous structures were evaluated: common femoral vein, profunda vein, proximal portion of the greater saphenous vein, superficial femoral vein, and the popliteal vein. FINDINGS: Nonocclusive DVT left SFV and popliteal veins. Veins do not completely compress. The remaining left lower extremity veins and right lower extremity veins are normal, CONCLUSIONS Nonocclusive DVT left SFV and popliteal veins. Dr. Tory Casillas DO (Electronically Signed) Final Date: 28 June 2021 15:54 S
[2021-06-28 14:34] LABS: Reflex Lactate Order REFLEX LACTIC ORDERD
[2021-06-28] MEDS: potassium chloride premix 100 ML 25 MEQ IV (14:35)
[2021-06-28] MEDS: pantoprazole 40 mg SDV 80 MG IVP (14:35)
--- NOTE | 2021-06-28 14:37 | ECG_ITS ---
[facility] Test Date: 2021-06-28 Pat Name: Uziel Chaparro Department: Room: Gender: Male Rn Procedures: : 1980 Requested By: Lito Thompson Order Number: [id number] Alex MD: Juan M Gallagher M.D. Measurements Intervals [place] Rate: 53 P: 47 WI: 164 QRS: 19 QRSD: 108 T: 32 QT: 458 QTc: 431 Interpretive Statements SINUS BRADYCARDIA INCOMPLETE RIGHT BUNDLE BRANCH BLOCK [90+ ms QRS DURATION, TERMINAL R IN V1/V2, 40+ ms S IN I/aVL/V4/V5/V6] Compared to ECG 06/28/2021 11:57:21 Sinus rhythm no longer present Electronically Signed On 06-28-2021 17:05:50 CDT by Juan M Gallagher M.D. [email or web address]
--- NOTE | 2021-06-28 14:38 | PM.HP ---
Providers/Chief Complaint Primary Care Provider: Karen Badillo NP Chief Complaint: CP History of Present Illness Uziel Chaparro is a 41 year old male with past medical history of hypertension , diabetes, DVT ( has undergone catheter directed thrombolysis for his lower extremity DVT in the past) recurrent PE , on long-term anticoagulation with Eliquis, patient also tells that likely he has history of Crohn's disease , was brought in with chief complaint of Diffuse generalized cramping abdominal pain, nausea vomiting, inability to eat and drink , due to intractable nausea vomiting , because of which he was unable to take his anticoagulation medications started since last Saturday, he was discharged from the ER yesterday for the same complaint, he was given IV fluid pain medication reglan. Currently he denies any chills, diarrhea, melena,brbpr. Upon arrival in the ER he was worked up for above-mentioned complaint: Pertinent imaging studies: CTA chest abdomen and pelvis:Numerous bilateral nonobstructive pulmonary emboli. Emboli begin in the proximal lower lobe pulmonary artery. Mild embolic burden. Abdomen CT: Liver, spleen, pancreas, gallbladder and adrenal glands are negative. Mild atherosclerotic plaque within the aorta. No renal obstruction. Normal enhancement of the portal vein. No filling defect in the proximal SMA or celiac axis. No fluid or adenopathy. Mild increased soft tissue through the duodenum with fluid. No abnormality was noted in this location on the prior examination. There could be redundant soft tissue or a small duodenal diverticulum. No mass identified. The appendix is normal. No submucosal edema or mucosal enhancement. Suggest very minimal fluid distention of the small bowel with no obstructive pattern. No hyperemia. Pelvic CT: Well-distended urinary bladder. No free fluid in the pelvis or adenopathy. No osseous destructive process identified. Pertinent labs; WBC 8.3, H&H 16.6 49.8,PLT: 253 , serum sodium 137 serum potassium 3.2 BUN / serum creatinine 15/1 Lactic acid 4.6 Troponin trend: Review of Systems General: Reports: 10 or more systems reviewed and unremarkable except in HPI and below Const: Denies: fever(s), chills, body aches, change in appetite or diaphoresis Card: Denies: palpitations, edema, swelling of feet/ankles, dyspnea on exertion, orthopnea or leg pain with exertion Resp: Denies: dyspnea, productive cough, wheezing or pain on inspiration GI: Reports: abdominal pain, nausea and vomiting; Denies: diarrhea or constipation : Denies: flank pain or difficulty urinating Musc: Denies: back pain, extremity pain or extremity swelling Neuro: Denies: headache(s), difficulty walking or confusion Medications/Allergies Home Medications Medication Instructions Recorded Confirmed Last Taken Type atorvastatin 20 mg tablet 20 mg PO QAM 03/24/19 06/28/21 06/28/21 09:30 History apixaban 5 mg tablet (Eliquis) 5 mg PO BID 10/08/19 06/28/21 06/28/21 09:30 History comp.stocking,thigh,long,large #2 each 10/08/19 06/28/21 Unknown Rx glipizide 5 mg tablet 5 mg PO QAM 10/08/19 06/28/21 06/28/21 09:30 History sitagliptin 25 mg tablet (Januvia) 25 mg PO QAM 10/08/19 06/28/21 06/28/21 09:30 History aspirin 81 mg tablet,delayed 81 mg PO QAM 01/13/20 06/28/21 06/28/21 09:30 History release albuterol sulfate 90 mcg/actuation 2 puff INHALATION Q6H PRN 03/30/21 06/28/21 Unknown History aerosol inhaler (ProAir HFA) fluoxetine 40 mg capsule 40 mg PO QAM 03/30/21 06/28/21 06/28/21 09:30 History lisinopril 20 mg tablet 20 mg PO QAM 03/30/21 06/28/21 06/28/21 09:30 History triamcinolone acetonide 0.025 % 1 applic TOPICAL BID PRN 03/30/21 06/28/21 Unknown History topical ointment metoclopramide HCl 5 mg tablet 5 mg PO TID PRN #10 tab 06/24/21 06/28/21 Unknown Rx (Reglan) azelastine 137 mcg (0.1 %) nasal 2 spray INTRANASAL BID PRN 06/28/21 06/28/21 Unknown History spray aerosol metronidazole 500 mg tablet 500 mg PO Q8H 06/28/21 06/28/21 06/28/21 History multivitamin with minerals (Men's 1 tab PO DAILY 06/28/21 06/28/21 Unknown History One Daily) varenicline 1 mg tablet 1 mg PO BID 06/28/21 06/28/21 06/28/21 History Allergies Allergy/AdvReac Type Severity Reaction Status Date / Time nickel Allergy ADR-Itching Verified 06/28/21 13:40 rofecoxib [From Vioxx] Allergy Unknown Verified 06/28/21 13:40 PFSH Acute PFSH: Medical History (Updated 06/28/21 @ 14:43 by Wilver Hernandez MD) Acute pulmonary embolism 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 Hypertension -Continue to monitor vital signs -Continue ACEi Morbid obesity -BMI-41 kg/m2 Non-insulin dependent diabetes mellitus -poorly controlled, A1c-11.2 -noted significant hyperglycemia, Accucheks, ISS, hypoglycemia precautions -consistent carb diet as tolerated -has been unable to tolerate metformin in the past (significant diarrhea, abdominal pain, N/V); will initiate glipizide (cost issues) which PCP will need to titrate SOB (shortness of breath) Surgical History H/O lymph node excision History of angioplasty of vein Left lower extremity Family History Other Cancer Heart disease Social History Smoking and tobacco status: current every day smoker cigarettes Years cigarettes smoked: 21 Quit status (tobacco): considering quitting Smoking risk assessment/counseling performed?: Yes Alcohol intake: current Alcohol intake frequency: few times a month Counseling given: No Counseling given: No Lives independently: Yes Household members: spouse Marital status: Current occupational status: employed 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 History of recent travel: No Current gender identity: Male Vitals/I&O/Wt Last Vital Signs Temp 98.3 F 06/28/21 11:58 Pulse 65 06/28/21 13:59 Resp 14 06/28/21 13:59 BP 120/75 06/28/21 13:59 Pulse Ox 97 06/28/21 13:59 06/27/21 06/28/21 06/28/21 22:59 06:59 14:59 Intake Total 1000 / 1000 Balance 1000 / 1000 Weight last 48 hrs Weight 137.438 kg Physical Exam Const: COMMON NORMALS: patient oriented x3 HENMT: COMMON NORMALS: normocephalic, atraumatic and hearing grossly normal bilaterally EXTERNAL EAR: Yes external ears normal Chest: CHEST: Yes Symmetrical chest wall rise Resp: COMMON NORMALS: normal respiratory effort, No retractions, No use of accessory muscles and clear to auscultation bilaterally EFFORT & INSPECTION: Yes symmetric chest movement AUSCULTATION: clear to auscultation bilaterally Cardio: COMMON NORMALS: regular rate, regular rhythm, S1 normal heart sound present, S2 normal heart sound present, No gallops present (Cardio), No murmurs present (Cardio), No rub (Cardio) and Peripheral pulses 2+ throughout RATE: regular rate RHYTHM: regular rhythm HEART SOUNDS: S1 normal heart sound present and S2 normal heart sound present PERIPHERAL PULSES: Peripheral pulses 2+ throughout GI: COMMON NORMALS: Normal to inspection, nondistended, normoactive bowel sounds present, Soft to palpation, non-tender, No hepatosplenomegaly present and no masses AUSCULTATION: Yes normoactive bowel sounds PALPATION: Yes Soft to palpation and Yes No hepatosplenomegaly present RECTAL EXAM: Yes deferred Extremity: COMMON NORMALS: no clubbing, cyanosis or edema and no pedal edema Neuro: COMMON NORMALS: patient oriented x3 Data : 06/28/21 12:40 06/28/21 12:40 CTA Chest: Radiologist's impression: 1.? Numerous bilateral nonobstructive pulmonary emboli. Emboli begin in the proximal lower lobe pulmonary artery. Mild embolic burden. 2.? No RIGHT heart strain. No pneumonia. 3.? Indeterminate but mildly prominent RIGHT lower lobe intralobar lymph node. CT Abd/Pel: Radiologist's impression: Abdomen CT: Liver, spleen, pancreas, gallbladder and adrenal glands are negative. Mild atherosclerotic plaque within the aorta. No renal obstruction. Normal enhancement of the portal vein. No filling defect in the proximal SMA or celiac axis. No fluid or adenopathy. Mild increased soft tissue through the duodenum with fluid. No abnormality was noted in this location on the prior examination. There could be redundant soft tissue or a small duodenal diverticulum. No mass identified. The appendix is normal. No submucosal edema or mucosal enhancement. Suggest very minimal fluid distention of the small bowel with no obstructive pattern. No hyperemia. Pelvic CT: Well-distended urinary bladder. No free fluid in the pelvis or adenopathy. No osseous destructive process identified. Lower extremity Doppler vein: Radiologist's impression: Nonocclusive DVT left SFV and popliteal veins. EKG 1: Electric Serviceman Interpretation: SINUS BRADYCARDIA INCOMPLETE RIGHT BUNDLE BRANCH BLOCK? [90+ ms QRS DURATION, TERMINAL R IN V1/V2, 40+ ms S IN I/aVL/V4/V5/V6] EKG computer-generated impression: Chest/Abdomen/Pelvis CT 06/28/21 12:32 IMPRESSION: 1. Numerous bilateral nonobstructive pulmonary emboli. Emboli begin in the proximal lower lobe pulmonary artery. Mild embolic burden. 2. No RIGHT heart strain. No pneumonia. 3. Indeterminate but mildly prominent RIGHT lower lobe intralobar lymph node. 4. Normal appendix. 5. Stable subcutaneous gas soft tissue mass in the anterior RIGHT chest wall. Present since at least 2008 with slow growth. A&P Assessment and plan (1) Abdominal pain: Status: Acute (2) Pulmonary embolism: Status: Acute Qualifiers: Acute cor pulmonale presence: with acute cor pulmonale Chronicity: acute Pulmonary embolism type: other Qualified Code(s): I26.09 - Other pulmonary embolism with acute cor pulmonale (3) DVT (deep venous thrombosis): Status: Acute Qualifiers: Affected thrombotic vein of extremity: other lower extremity vein Chronicity: acute DVT location: lower extremity Laterality: left Qualified Code(s): I82.492 - Acute embolism and thrombosis of other specified deep vein of left lower extremity (4) Hypertension: Status: Acute (5) Diabetes: Status: Acute (6) Nicotine addiction: Status: Acute (7) Hypertension: Status: Acute (8) Diabetes: Status: Acute (9) Lactic acidosis: Status: Acute (10) Hypokalemia: Status: Acute (11) Morbid obesity: Status: Acute Plan 41 year old male with past medical history of hypertension , diabetes, DVT ( has undergone catheter directed thrombolysis for his lower extremity DVT in the past) recurrent PE , on long-term anticoagulation with Eliquis, patient also tells that likely he has history of Crohn's disease , was brought in with chief complaint of Diffuse generalized cramping abdominal pain, nausea vomiting, inability to eat and drink , due to intractable nausea vomiting. Assessment: Acute pulm embolism, in the setting of history of recurrent PE and DVT: #DVT #Intractable nausea , vomiting #Reported history of Crohn's disease no records available (had a colonoscopy biopsy at [facility], will try and get records from there) #Abdominal pain #Lactic acidosis #Hypokalemia #Diabetes #Hypertension Plan We will start him on Lovenox therapeutic. Once he starts to take p.o. medicines we will switch him back to Eliquis. Continue Zofran and Reglan, Maalox, antispasmodic Continue IV hydration Follow repeat lactic acid LDSSI Monitor fsg Less likely Crohn's flare: Patient just has abdominal pain denies any, fever or chills, bloody stool , diarrhea, Tenesmus CODE STATUS: Full code DVT prophylaxis: On Lovenox Attestations Medical Necessity Statement*: Patient is still in hospital for management of acute pulmonary embolism nausea vomiting inability to take p.o. intake, IV hydration, need for injectable anticoagulant.Anticipated length of stay greater than 2 midnights. Time Spent in Patient Care: Greater than 35 minutes (>than 50% of time spent in counselling and/or direct pt care on unit). Coding Level of Care Code Acute Community Affairs Director for Chg Fwd Exam Detailed Diagnoses Abdominal pain R10.9 Pulmonary embolism I26.09 Acute cor pulmonale presence: with acute cor pulmonale Chronicity: acute Pulmonary embolism type: other DVT (deep venous thrombosis) I82.492 Affected thrombotic vein of extremity: other lower extremity vein Chronicity: acute DVT location: lower extremity Laterality: left Hypertension I10 Diabetes E11.9 Nicotine addiction F17.200 Hypertension I10 Diabetes E11.9 Lactic acidosis E87.2 Hypokalemia E87.6 Morbid obesity E66.01
--- NOTE | 2021-06-28 14:42 | PC.NURSE ---
EKG done at 1440
[2021-06-28] MEDS: sodium chloride 0.9% 1,000 ML 125 ML IV ×2 (15:35→21:35)
[2021-06-28 16:24] LABS: Troponin 5 2HR 7.17 ng/L (0-15)
[2021-06-28 16:42] LABS: Troponin 5 2HR Delta 0.17 ABS# (0-10)
[2021-06-28 17:19] LABS: Glucose Point of Care 81 mg/dL (70-110)
--- NOTE | 2021-06-28 18:37 | ECG_ITS ---
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 Measurements Intervals [place] Rate: P: [place]: QRS: QRSD: T: QT: QTc: Interpretive Statements SINUS RHYTHM Compared to ECG 06/28/2021 14:40:07 Sinus bradycardia no longer present Incomplete right bundle-branch block no longer present Electronically Signed On 06-29-2021 17:05:42 CDT by Ej Kearney M.D. [id number]
[2021-06-28] MEDS: morphine 4 mg/mL SDV 1 mL 2 MG IVP (19:16)
[2021-06-28 19:34] LABS: Troponin 5 6HR 6.19 ng/L (0-15)
[2021-06-28 19:45] LABS: Troponin 5 6HR Delta -0.81 ng/L (0-12)
[2021-06-28 20:43] LABS: Glucose Point of Care 180 mg/dL (70-110)
[2021-06-28] MEDS: enoxaparin 150 mg/mL Syringe 140 MG SUBCUT (21:35)
[2021-06-28 21:47] LABS: Add Urine Microscopic? NO; Charge for UA Resulting for Rev
[2021-06-28 21:58] LABS: Bilirubin Urine Neg (Negative); Blood Urine Neg (Negative); Glucose Urine UA Norm (Normal); Ketones Urine Negative (Negative); Leukocyte Esterase Urine Negative (Negative); Nitrate Urine Negative (Negative); Protein Urine Neg (Negative); Specific Gravity, Urine 1.015 (1.005-1.030); Sulfosalicylic Acid Urine Negative (Negative); Urine Appearance Clear (CLEAR); Urine Color Amber (Yellow); Urobilinogen Urine Norm (Negative); pH Urine 9 (5-7)
[2021-06-29] VITALS (12 sets, daily range): BP systolic 98–122; BP diastolic 58–85; PULSE 53–75; RESP 16–18; TEMP 36.7–36.9; O2SAT 92–96
[2021-06-29] MEDS: ondansetron 2 mg/ML SDV 2 mL 4 MG IVP ×4 (02:10→20:30)
[2021-06-29] MEDS: morphine 4 mg/mL SDV 1 mL 2 MG IVP ×2 (02:11→20:30)
[2021-06-29] MEDS: fluoxetine 20 mg Capsule 40 MG PO (04:27)
[2021-06-29] MEDS: aspirin 81 mg EC Tablet PO (04:28)
[2021-06-29] MEDS: atorvastatin 40 mg Tablet 20 MG PO (04:28)
[2021-06-29] MEDS: sodium chloride 0.9% 1,000 ML 125 ML IV ×3 (04:29→22:45)
[2021-06-29 06:30] LABS: Glucose Point of Care 119 mg/dL (70-110)
[2021-06-29 06:33] LABS: Basophils % 0.4 %; Eosinophils # 0.1 10^3/uL (0.0-0.8); Eosinophils % 1.4 %; Hematocrit 42.7 % (42.0-52.0); Hemoglobin 13.7 g/dL (11.7-16.6); Lymphocytes % 36.6 %; Mean Corpuscular HGB Conc 32.1 g/dL (30.0-36.0); Mean Corpuscular Hemoglobin 29.1 pg (28.0-34.0); Mean Corpuscular Volume 90.9 fl (80-94); Mean Platelet Volume 9.7 fL (7.4-10.4); Monocytes # 0.4 10^3/uL (0.2-0.9); Monocytes % 5.4 %; Neutrophils # 4.53 10^3/uL (1.8-7.7); Neutrophils % 55.8 %; Nucleated Red Blood Cells % 0 %; Platelet Count 206 10^3/cmm (130-400); Red Cell Distribution Width 13.3 % (12.1-15.1); White Blood Count 8.1 10^3/uL (4.0-10.0)
[2021-06-29 06:55] LABS: Alanine Aminotransferase 15 U/L (0-41); Albumin Level 2.9 g/dL (3.5-5.2); Alkaline Phosphatase 61 IU/L (40-130); Aspartate Amino Transferase 10 U/L (0-40); Blood Urea Nitrogen 14 mg/dL (6-20); Calcium 8.1 mg/dL (8.5-10.5); Carbon Dioxide 23 mmol/L (22-29); Chloride 105 mmol/L (98-107); Creatinine Clr Calc Pharmacy 150.9959; Globulin 2.6 g/dL (1.3-4.6); Glomerular Filtration Rate 82.3 mL/min (90-130); Glucose 132 mg/dL (65-115); Osmolality Calculated 284 mOsm/kg (285-295); Sodium 136 mmol/L (136-145); Total Bilirubin 0.5 mg/dL (0.15-1.2); Total Protein 5.5 g/dL (6.6-8.7)
--- NOTE | 2021-06-29 10:54 | PC.CHAP ---
Pastoral Care Encounter/Spiritual Assessment Type of Contact [] Declined junior underwriter visit [] Patient/Family/Request visit [] Outpatient visit [] Follow-up visit [] Physician referral [] Code/Alert [x] Routine visit [] Staff referral [] Actively dying [] Patient sleeping [] Family support [] [] Out of room [] Palliative care [] [x] Receiving care in room [] Pre-surgical visit [] Trauma [] Long length of stay [] ICU visit [] Other: Relational/Emotional Strength [x] Patient feels connected with others/family/visitors/staff [] Distress [] Loneliness/isolation [] Abandonment Spirituality of Patient [x] Person of Karen [] Attends Sabianism of their Karen [x] Believes in Prayer [] Reads Bible or Mormonism materials [] There are Spiritual issues to be addressed Rpg Programmer Analyst Interventions [x] Prayer [x] Active listening [x] Non-anxious presence [x] Spiritual/emotional support [] Crisis/trauma care [x] Spiritual counseling [] Bereavement support [] Provided bereavement packet [] Provided Bible/devotional materials [] Provided toy/stuffed animal, coloring book to patient or family member [] Provided Communion [] Anointing/[place] [] Salvation [x] Completed spiritual assessment [] Other: Impact on Illness or Injury [] Angry [] Fearful [] Anxious [] Often cries [] Exhaustion [] Unable to work [] Unable to attend religion [] Unable to walk/stand [] Unable to read [] Unable to drive [] Unable to eat/drink [] Unable to sleep [] Unable to be with family [] Patient intubated [] Other: Summary feels good has a good attitude is going home Time spent with patient 10 mins
[2021-06-29] MEDS: apixaban 5 mg Tablet PO ×2 (10:58→20:21)
[2021-06-29 11:20] LABS: Glucose Point of Care 138 mg/dL (70-110)
--- NOTE | 2021-06-29 11:36 | P.PN_ITS ---
Subjective Subjective: Patient was complaining of episodic spasmodic abdominal pain,which does respond to I.M levsin, has started tolerating po,deny any diarrhea.Will switch him back to oral eliquis. Serum lactic acid has normalized. Medications: Medication Review Details: Generic Name Dose Route Start Last Admin Trade Name Freq PRN Reason Stop Dose Admin Apixaban 5 mg 06/29/21 11:00 06/29/21 10:58 Apixaban 5 Mg Ta blet PO 5 mg BID@0900,2100 WARREN Administration Aspirin 81 mg 06/29/21 06:00 06/29/21 04:28 Aspirin 81 Mg Ec Tablet PO 81 mg QAM WARREN Administration Atorvastatin Calci um 20 mg 06/29/21 06:00 06/29/21 04:28 Atorvastatin 40 Mg Tablet PO 20 mg QAM WARREN Administration Fluoxetine HCl 40 mg 06/29/21 06:00 06/29/21 04:27 Fluoxetine 20 Mg Capsule PO 40 mg QAM WARREN Administration Hyoscyamine 0.25 mg 06/28/21 16:02 06/29/21 04:43 Hyoscyamine 0.5 Mg/Ml Inj IM 0.25 mg Q4H PRN Administration abdominal spasmod ic pain Sodium Chloride 1,000 mls @ 125 m ls/hr 06/28/21 14:45 06/29/21 04:29 Sodium Chloride 0.9% IV 125 mls/hr .Q8H WARREN Administration Insulin Human Lisp ro 0 unit 06/28/21 18:00 06/29/21 08:56 Insulin Lispro 1 00 Unit/1 Ml SUBCUT Not Given TIDWM [facility] Protocol Morphine Sulfate 2 mg 06/28/21 15:50 06/29/21 02:11 Morphine 4 Mg/Ml Sdv 1 Ml IVP 2 mg Q6H PRN Administration PAIN Ondansetron HCl 4 mg 06/28/21 20:00 06/29/21 08:56 Ondansetron 2 Mg /Ml Sdv 2 Ml IVP 4 mg Q6H WARREN Administration Vitals/I&O/Wt Last Vital Signs Temp 98.2 F 06/29/21 11:24 Pulse 53 L 06/29/21 11:24 Resp 16 06/29/21 11:24 BP 109/72 06/29/21 11:24 Pulse Ox 95 06/29/21 11:24 06/28/21 06/29/21 06/29/21 22:59 06:59 14:59 Intake Total 2848.76 / 5598.76 1102.5 / 6701.26 360 / 360 Output Total 700 / 700 400 / 400 Balance 2148.76 / 4898.76 1102.5 / 6001.26 -40 / -40 Weight last 48 hrs Weight 137.438 kg Physical Exam Const: COMMON NORMALS: patient oriented x3 HENMT: COMMON NORMALS: normocephalic, atraumatic, hearing grossly normal bilaterally and external ears normal HEAD & SCALP: normocephalic and atraumatic EXTERNAL EAR: Yes external ears normal Chest: CHEST: Yes Symmetrical chest wall rise Resp: COMMON NORMALS: normal respiratory effort, No retractions, No use of accessory muscles and clear to auscultation bilaterally EFFORT & INSPECTION: Yes symmetric chest movement AUSCULTATION: clear to auscultation bilaterally Cardio: COMMON NORMALS: regular rate, regular rhythm, S1 normal heart sound present, S2 normal heart sound present, No gallops present (Cardio), No murmurs present (Cardio), No rub (Cardio) and Peripheral pulses 2+ throughout RATE: regular rate RHYTHM: regular rhythm HEART SOUNDS: S1 normal heart sound present and S2 normal heart sound present PERIPHERAL PULSES: Peripheral pulses 2+ throughout GI: COMMON NORMALS: Normal to inspection, nondistended, normoactive bowel sounds present, Soft to palpation, non-tender, No hepatosplenomegaly present and no masses AUSCULTATION: Yes normoactive bowel sounds PALPATION: Yes Soft to palpation and Yes No hepatosplenomegaly present RECTAL EXAM: Yes deferred Extremity: COMMON NORMALS: no clubbing, cyanosis or edema and no pedal edema Neuro: COMMON NORMALS: patient oriented x3 Data : 06/29/21 06:07 06/29/21 06:07 A&P Assessment and plan (1) Abdominal pain: Status: Acute (2) Pulmonary embolism: Status: Acute Qualifiers: Acute cor pulmonale presence: with acute cor pulmonale Chronicity: acute Pulmonary embolism type: other Qualified Code(s): I26.09 - Other pulmonary embolism with acute cor pulmonale (3) DVT (deep venous thrombosis): Status: Acute Qualifiers: Affected thrombotic vein of extremity: other lower extremity vein Chronicity: acute DVT location: lower extremity Laterality: left Qualified Code(s): I82.492 - Acute embolism and thrombosis of other specified deep vein of left lower extremity (4) Hypertension: Status: Acute (5) Diabetes: Status: Acute (6) Nicotine addiction: Status: Acute (7) Lactic acidosis: Status: Acute (8) Hypokalemia: Status: Acute (9) Morbid obesity: Status: Acute Plan 41 year old male with past medical history of hypertension , diabetes, DVT ( has undergone catheter directed thrombolysis for his lower extremity DVT in the past) recurrent PE , on long-term anticoagulation with Eliquis, patient also tells that likely he has history of Crohn's disease , was brought in with chief complaint of Diffuse generalized cramping abdominal pain, nausea vomiting, inability to eat and drink , due to intractable nausea vomiting. Assessment: Acute pulm embolism, in the setting of history of recurrent PE and DVT: #DVT #Intractable nausea , vomiting #Reported history of Crohn's disease no records available (had a colonoscopy biopsy at [facility], will try and get records from there) #Abdominal pain #Lactic acidosis #Hypokalemia #Diabetes #Hypertension Plan We will start him on Lovenox therapeutic. Once he starts to take p.o. medicines we will switch him back to Eliquis. Continue Zofran and Reglan, Maalox, antispasmodic Continue IV hydration Follow repeat lactic acid LDSSI Monitor fsg Less likely Crohn's flare: Patient just has abdominal pain denies any, fever or chills, bloody stool , diarrhea, Tenesmus CODE STATUS: Full code DVT prophylaxis: On Lovenox Attestations Medical Necessity Statement*: Patient needs to be in hospital for the need for I.V fluids, restarting po Ac coagulation. Time Spent in Patient Care: Greater than 35 minutes (>than 50% of time spent in counselling and/or direct pt care on unit) . Coding Level of Care Code Acute Granulating Machine Operator for Chg Fwd Exam Detailed Diagnoses Abdominal pain R10.9 Pulmonary embolism I26.09 Acute cor pulmonale presence: with acute cor pulmonale Chronicity: acute Pulmonary embolism type: other DVT (deep venous thrombosis) I82.492 Affected thrombotic vein of extremity: other lower extremity vein Chronicity: acute DVT location: lower extremity Laterality: left Hypertension I10 Diabetes E11.9 Nicotine addiction F17.200 Lactic acidosis E87.2 Hypokalemia E87.6 Morbid obesity E66.01
[2021-06-29] MEDS: hyoscyamine ODT 0.125 mg Tablet PO (12:38)
[2021-06-29 17:28] LABS: Glucose Point of Care 132 mg/dL (70-110)
[2021-06-29 21:34] LABS: Glucose Point of Care 115 mg/dL (70-110)
[2021-06-30] VITALS (7 sets, daily range): BP systolic 109–137; BP diastolic 70–86; PULSE 58–73; RESP 16–18; TEMP 36.4–36.7; O2SAT 94–98
[2021-06-30] MEDS: ondansetron 2 mg/ML SDV 2 mL 4 MG IVP ×2 (02:46→08:22)
[2021-06-30] MEDS: aspirin 81 mg EC Tablet PO (05:51)
[2021-06-30] MEDS: fluoxetine 20 mg Capsule 40 MG PO (05:51)
[2021-06-30] MEDS: atorvastatin 40 mg Tablet 20 MG PO (05:51)
[2021-06-30] MEDS: bisacodyl 5 mg Tablet 10 MG PO (05:52)
[2021-06-30] MEDS: sodium chloride 0.9% 1,000 ML 125 ML IV (05:54)
[2021-06-30 05:55] LABS: Basophils % 0.6 %; Eosinophils # 0.1 10^3/uL (0.0-0.8); Hematocrit 42.1 % (42.0-52.0); Hemoglobin 13.3 g/dL (11.7-16.6); Lymphocytes # 2.5 10^3/uL (0.8-4.8); Lymphocytes % 36.2 %; Mean Corpuscular HGB Conc 31.6 g/dL (30.0-36.0); Mean Corpuscular Hemoglobin 28.9 pg (28.0-34.0); Mean Corpuscular Volume 91.3 fl (80-94); Monocytes # 0.5 10^3/uL (0.2-0.9); Monocytes % 6.8 %; Neutrophils % 54.1 %; Nucleated Red Blood Cells % 0 %; Platelet Count 219 10^3/cmm (130-400); Red Blood Count 4.61 10^6/uL (4.1-5.3); Red Cell Distribution Width 13.2 % (12.1-15.1)
[2021-06-30 06:30] LABS: Alanine Aminotransferase 15 U/L (0-41); Albumin Level 3.2 g/dL (3.5-5.2); Alkaline Phosphatase 58 IU/L (40-130); Anion Gap 13.9 (5-19); Aspartate Amino Transferase 8 U/L (0-40); Blood Urea Nitrogen 14 mg/dL (6-20); Calcium 7.4 mg/dL (8.5-10.5); Carbon Dioxide 20 mmol/L (22-29); Chloride 106 mmol/L (98-107); Globulin 2.2 g/dL (1.3-4.6); Glucose 155 mg/dL (65-115); Osmolality Calculated 286 mOsm/kg (285-295); Potassium 3.9 mmol/L (3.5-5.1); Sodium 136 mmol/L (136-145); Total Bilirubin 0.3 mg/dL (0.15-1.2); Total Protein 5.4 g/dL (6.6-8.7)
[2021-06-30 06:42] LABS: Glucose Point of Care 103 mg/dL (70-110)
[2021-06-30] MEDS: apixaban 5 mg Tablet PO (08:27)
--- NOTE | 2021-06-30 10:15 | P.DS_ITS ---
Discharge Providers Date of Admission: 06/28/21 14:32 Date of Discharge: June 30, 2021 Attending Provider at Admission: Wilver Hernandez MD Attending Provider at Discharge: Wilver Hernandez MD Primary Care Provider: Karen Badillo NP Diagnoses at Discharge Discharge Diagnosis (1) Abdominal pain: Status: Acute (2) Pulmonary embolism: Status: Acute (3) DVT (deep venous thrombosis): Status: Acute Qualifiers: Affected thrombotic vein of extremity: other lower extremity vein Chronicity: acute DVT location: lower extremity Laterality: left Qualified Code(s): I82.492 - Acute embolism and thrombosis of other specified deep vein of left lower extremity Permanent problem details: -Has noted deep vein occlusive thrombus involving femoral, popliteal and peroneal veins. Superficial veins appear unremarkable - has prior history of DVT in the left lower extremity, has had thrombolysis done -Anticoagulation as noted above (4) Hypertension: Status: Acute (5) Diabetes: Status: Acute (6) Nicotine addiction: Status: Acute (7) Lactic acidosis: Status: Acute (8) Hypokalemia: Status: Acute (9) Morbid obesity: Status: Acute Reason for Visit Reason for Visit: CP Hospital Course Hospital Course HPI: Uziel Chaparro is a 41 year old male with past medical history of hypertension , diabetes, DVT ( has?undergone catheter directed thrombolysis for his lower extremity DVT in the past) recurrent PE , on long-term anticoagulation with Eliquis, patient also tells oral t likely he has history of Crohn's disease , was brought in with chief complaint of Diffuse generalized cramping abdominal pain, nausea vomiting, inability to eat and drink , due to intractable nausea vomiting , because of which he was unable to take his anticoagulation medications started since last Saturday, he was discharged from the ER yesterday for the same complaint, he was given IV fluid pain medication reglan. Currently he denies any chills, diarrhea, melena,brbpr. Upon arrival in the ER he was worked up for above-mentioned complaint: Pertinent imaging studies: CTA chest abdomen and pelvis:Numerous bilateral nonobstructive pulmonary emboli. Emboli begin in the proximal lower lobe pulmonary artery. Mild embolic burden. Abdomen CT: Liver, spleen, pancreas, gallbladder and adrenal glands are negative. Mild atherosclerotic plaque within the aorta. No renal obstruction. Normal enhancement of the portal vein. No filling defect in the proximal SMA or celiac axis. No fluid or adenopathy. Mild increased soft tissue through the duodenum with fluid. No abnormality was noted in this location on the prior examination. There could be redundant soft tissue or a small duodenal diverticulum. No mass identified. The appendix is normal. No submucosal edema or mucosal enhancement. Suggest very minimal fluid distention of the small bowel with no obstructive pattern. No hyperemia. Pelvic CT: Well-distended urinary bladder. No free fluid in the pelvis or adenopathy. No osseous destructive process identified. Lower extremity Doppler vein: Nonocclusive DVT left SFV and popliteal veins. Pertinent labs; WBC 8.3, H&H 16.6 49.8,PLT: 253 , serum sodium 137 serum potassium 3.2 BUN / serum creatinine 15/1 Lactic acid 4.6 Troponin trend: Negative: Hospital course: Patient was admitted for the management of acute pulmonary embolism, initially was kept on Lovenox later he was switched to Eliquis, once he started tolerating p.o. medicines. For his nausea vomiting abdominal pain: He was managed conservatively with IV fluids, pain medications , antispasmodics , lactic acidosis responded well to IV hydration, repeat serum lactic acid was normal, at the time of discharge he was not complaining of any nausea vomiting, was tolerating diet well, had some intermittent crampy abdominal pain, for which she was continued on antispasmodic,PO. He has been continued on Eliquis.He will con tinue to follow primary care physician as well as Dr. Castellanos as an outpatient. Physical Exam Const: COMMON NORMALS: patient oriented x3 HENMT: COMMON NORMALS: normocephalic, atraumatic, hearing grossly normal bilaterally and external ears normal HEAD & SCALP: normocephalic and atraumatic EXTERNAL EAR: Yes external ears normal Chest: CHEST: Yes Symmetrical chest wall rise Resp: COMMON NORMALS: normal respiratory effort, No retractions, No use of accessory muscles and clear to auscultation bilaterally EFFORT & INSPECTION: Yes symmetric chest movement AUSCULTATION: clear to auscultation bilaterally Cardio: COMMON NORMALS: regular rate, regular rhythm, S1 normal heart sound present, S2 normal heart sound present, No gallops present (Cardio), No murmurs present (Cardio), No rub (Cardio) and Peripheral pulses 2+ throughout RATE: regular rate RHYTHM: regular rhythm HEART SOUNDS: S1 normal heart sound present and S2 normal heart sound present PERIPHERAL PULSES: Peripheral pulses 2+ throughout GI: COMMON NORMALS: Normal to inspection, nondistended, normoactive bowel sounds present, Soft to palpation, non-tender, No hepatosplenomegaly present and no masses AUSCULTATION: Yes normoactive bowel sounds PALPATION: Yes Soft to palpation and Yes No hepatosplenomegaly present RECTAL EXAM: Yes deferred Extremity: COMMON NORMALS: no clubbing, cyanosis or edema and no pedal edema Neuro: COMMON NORMALS: patient oriented x3 Discharge Data Studies Completed and Pending Completed Studies During Hospitalization Category Date Time Status CTA chest CT abdomen pelvis [CT angio chest w abd pel w Cat Scan 06/28/21 12:32 Completed con] Stat US venous duplex lower extremity bilat [CV venous Ultrasound 06/28/21 14:21 [place] [id number]] Stat Pending at discharge Category Date Time Status Complete Blood Count w/Auto AM LABS Lab 07/01/21 04:00 Ordered Comprehensive Metabolic Panel AM LABS Lab 07/01/21 04:00 Ordered Radiology Impressions Chest/Abdomen/Pelvis CT 06/28/21 12:32 IMPRESSION: 1. Numerous bilateral nonobstructive pulmonary emboli. Emboli begin in the proximal lower lobe pulmonary artery. Mild embolic burden. 2. No RIGHT heart strain. No pneumonia. 3. Indeterminate but mildly prominent RIGHT lower lobe intralobar lymph node. 4. Normal appendix. 5. Stable subcutaneous gas soft tissue mass in the anterior RIGHT chest wall. Present since at least 2008 with slow growth. Laboratory Results WBC 7.0 10^3/uL (4.0-10.0) 06/30/21 05:15 RBC 4.61 10^6/uL (4.1-5.3) 06/30/21 05:15 Hgb 13.3 g/dL (11.7-16.6) 06/30/21 05:15 Hct 42.1 % (42.0-52.0) 06/30/21 05:15 MCV 91.3 fl (80-94) 06/30/21 05:15 MCH 28.9 pg (28.0-34.0) 06/30/21 05:15 MCHC 31.6 g/dL (30.0-36.0) 06/30/21 05:15 RDW 13.2 % (12.1-15.1) 06/30/21 05:15 Plt Count 219 10^3/cmm (130-400) 06/30/21 05:15 MPV 10.0 fL (7.4-10.4) 06/30/21 05:15 Neut % (Auto) 54.1 % 06/30/21 05:15 Lymph % (Auto) 36.2 % 06/30/21 05:15 Hunt % (Auto) 6.8 % 06/30/21 05:15 Eos % (Auto) 2.0 % 06/30/21 05:15 Baso % (Auto) 0.6 % 06/30/21 05:15 Neut # (Auto) 3.80 10^3/uL (1.8-7.7) 06/30/21 05:15 Lymph # (Auto) 2.5 10^3/uL (0.8-4.8) 06/30/21 05:15 Hunt # (Auto) 0.5 10^3/uL (0.2-0.9) 06/30/21 05:15 Eos # (Auto) 0.1 10^3/uL (0.0-0.8) 06/30/21 05:15 Baso # (Auto) 0.0 10^3/uL (0.0-0.1) 06/30/21 05:15 Nucleated RBC % (auto) 0 % 06/30/21 05:15 Nucleated RBCs # 0.0 /100WBC 06/30/21 05:15 Sodium 136 mmol/L (136-145) 06/30/21 05:15 Potassium 3.9 mmol/L (3.5-5.1) 06/30/21 05:15 Chloride 106 mmol/L (98-107) 06/30/21 05:15 Carbon Dioxide 20 mmol/L (22-29) L 06/30/21 05:15 Anion Gap 13.9 (5-19) 06/30/21 05:15 BUN 14 mg/dL (6-20) 06/30/21 05:15 Creatinine 0.9 mg/dL (0.7-1.2) 06/30/21 05:15 GFR Calculation 93.0 mL/min (90-130) 06/30/21 05:15 Glucose 155 mg/dL (65-115) H 06/30/21 05:15 POC Glucose 103 mg/dL (70-110) 06/30/21 06:19 Calculated Osmolality 286 mOsm/kg (285-295) 06/30/21 05:15 Lactic Acid 4.5 mmol/L (0.5-2.2) H* 06/28/21 12:40 Lactic Acid (Sepsis) 1.0 mmol/L (0.5-2.2) 06/28/21 15:41 Calcium 7.4 mg/dL (8.5-10.5) L 06/30/21 05:15 Total Bilirubin 0.3 mg/dL (0.15-1.2) 06/30/21 05:15 AST 8 U/L (0-40) 06/30/21 05:15 ALT 15 U/L (0-41) 06/30/21 05:15 Alkaline Phosphatase 58 IU/L (40-130) 06/30/21 05:15 Troponin T Baseline 7 ng/L (0-15) 06/28/21 12:40 Troponin T 120 Minute 7.17 ng/L (0-15) 06/28/21 15:41 Delta Troponin T 0.17 ABS# (0-10) 06/28/21 15:41 Troponin T Hi Sens 6Hr 6.19 ng/L (0-15) 06/28/21 19:08 Troponin T Hi Sens 6Hr Delta -0.81 ng/L (0-12) L 06/28/21 19:08 Total Protein 5.4 g/dL (6.6-8.7) L 06/30/21 05:15 Albumin 3.2 g/dL (3.5-5.2) L 06/30/21 05:15 Globulin 2.2 g/dL (1.3-4.6) 06/30/21 05:15 Lipase 27 U/L (13-60) 06/28/21 12:40 Urine Color Patricia (Yellow) 06/28/21 21:38 Urine Appearance Clear (CLEAR) 06/28/21 21:38 Urine pH 9 (5-7) H 06/28/21 21:38 Ur Specific [place] 1.015 (1.005-1.030) 06/28/21 21:38 Urine Protein Neg (Negative) 06/28/21 21:38 Urine Glucose (UA) Norm (Normal) 06/28/21 21:38 Urine Ketones Negative (Negative) 06/28/21 21:38 Urine Blood Neg (Negative) 06/28/21 21:38 Urine Nitrate Negative (Negative) 06/28/21 21:38 Urine Bilirubin Neg (Negative) 06/28/21 21:38 Prot Sulfosalicylic Acd Negative (Negative) 06/28/21 21:38 Urine Urobilinogen Norm mg/dL (Negative) 06/28/21 21:38 Ur Leukocyte Esterase Negative (Negative) 06/28/21 21:38 Vitals Last Vital Signs Temp 97.5 F L 06/30/21 09:02 Pulse 73 06/30/21 09:15 Resp 16 06/30/21 09:15 BP 137/86 06/30/21 09:02 Pulse Ox 95 06/30/21 09:15 Discharge Plan Discharge Patient Disposition: Home Condition: Stable Prescriptions: New Anaspaz 0.125 mg Tablet,Disintegrating 0.125 mg PO Q4H PRN (Reason: Congestion) 7 Days Qty: 20 0RF Continued atorvastatin 20 mg tablet 20 mg PO QAM 0RF Januvia 25 mg tablet 25 mg PO QAM 0RF glipizide 5 mg tablet 5 mg PO QAM 0RF Eliquis 5 mg tablet 5 mg PO BID 0RF (DME) comp.stocking,thigh,long,large Misc See Rx Instructions .ROUTE .MEDSUPPLY Qty: 2 0RF Rx Instructions: As directed aspirin 81 mg tablet,delayed release (DR/EC) 81 mg PO QAM 0RF lisinopril 20 mg Tablet 20 mg PO QAM 0RF fluoxetine 40 mg capsule 40 mg PO QAM 0RF triamcinolone acetonide 0.025 % ointment 1 applic TOPICAL BID PRN (Reason: Rash) 0RF albuterol sulfate [ProAir HFA] 90 mcg/actuation HFA aerosol inhaler 2 puff INHALATION Q6H PRN (Reason: Shortness Of Breath) 0RF metoclopramide HCl [Reglan] 5 mg tablet 5 mg PO TID PRN (Reason: nausea and vomiting) Qty: 10 0RF Men's One Daily Tablet 1 tab PO DAILY 0RF varenicline 1 mg tablet 1 mg PO BID 0RF azelastine 137 mcg (0.1 %) aerosol,spray 2 spray intranasal BID PRN (Reason: unknown) 0RF Rx Instructions: administer into each nostril Discontinued metronidazole 500 mg Tablet 500 mg PO Q8H 0RF Rx Instructions: for 10 days Discharge Orders: Discharge Order (Routine); Ordered 06/30/21 Ordered By: Wilver Hernandez Referrals: Karen Badillo NP [Primary Care Provider] - 07/05/21 10:00 am Lety Castellanos MD [Physician] - 07/06/21 8:45 am Discharge Diet: Diabetic Discharge Activity: Resume usual activity Patient Instructions: Abdominal Pain - Adult, Hyoscyamine (By mouth), Pulmonary Embolism (DC), Opioid Safety Discharge Attestations Time Spent in Discharge Care*: less than 30 min Status at Discharge: Cognitive status at discharge: cognitively intact , Behavioral status at discharge: cooperative , Quality Metrics Clinical Quality Measures [ No reported AMI, CVA or VTE this stay] Coding Level of Care Code Acute Chg FW DC note Diagnoses Abdominal pain R10.9 Pulmonary embolism I26.99 DVT (deep venous thrombosis) I82.492 Affected thrombotic vein of extremity: other lower extremity vein Chronicity: acute DVT location: lower extremity Laterality: left Hypertension I10 Diabetes E11.9 Nicotine addiction F17.200 Lactic acidosis E87.2 Hypokalemia E87.6 Morbid obesity E66.01
[2021-06-30 12:38] LABS: Glucose Point of Care 114 mg/dL (70-110)
== END 2021-06-30 13:37 | disposition home or self-care (01) | DRG 175 ==
LOC: ER 12:26 → MEDSURG 16:21
PROVIDERS: Admitting Provider Internal Medicine; Emergency Provider Family Medicine; PCP Nurse Practitioner Family; Visit Provider Internal Medicine
DX: I26.09 Other pulmonary embolism with acute cor pulmonale (principal); I82.492 Acute embolism and thrombosis of other specified deep vein of left lower extremity; E87.2 Acidosis; R10.9 Unspecified abdominal pain; I10 Essential (primary) hypertension; E11.9 Type 2 diabetes mellitus without complications; E87.6 Hypokalemia; E66.01 Morbid (severe) obesity due to excess calories; Z68.35 Body mass index [BMI] 35.0-35.9, adult; Z79.4 Long term (current) use of insulin; Z79.84 Long term (current) use of oral hypoglycemic drugs; Z79.82 Long term (current) use of aspirin; R11.2 Nausea with vomiting, unspecified; Z79.01 Long term (current) use of anticoagulants
CPT/HCPCS: 36415; 36416; 71275; 74177; 80053; 81003; 82962; 83605; 83690; 84484; 85025; 93005; 93970; 96372; 96374; 96375; 96376; 99285; C9113; J1650; J1980; J2270; J2405; J3480; J7030; Q9967

== ENCOUNTER → 2021-07-10 12:52 | Outpatient (BNVA) | payer MEDICAID, SELFPAY | PROVIDERS: PCP Nurse Practitioner Family; Visit Provider Internal Medicine Critical Care Medicine | DX: I26.99 Other pulmonary embolism without acute cor pulmonale (principal); F17.210 Nicotine dependence, cigarettes, uncomplicated; R07.9 Chest pain, unspecified; I10 Essential (primary) hypertension; E87.5 Hyperkalemia; E11.8 Type 2 diabetes mellitus with unspecified complications; I82.409 Acute embolism and thrombosis of unspecified deep veins of unspecified lower extremity | CPT/HCPCS: 36415; 81241; 83090; 85210; 85300; 85301; 85303; 85306; 86038; 86146; 86147; 99214 ==

== ENCOUNTER → 2021-09-08 09:44 | Outpatient (BNVA) | payer MEDICAID, SELFPAY | PROVIDERS: PCP Nurse Practitioner Family; Visit Provider Internal Medicine Critical Care Medicine | DX: I26.99 Other pulmonary embolism without acute cor pulmonale (principal); F17.210 Nicotine dependence, cigarettes, uncomplicated; H81.09 Meniere's disease, unspecified ear; R07.9 Chest pain, unspecified; I82.409 Acute embolism and thrombosis of unspecified deep veins of unspecified lower extremity | CPT/HCPCS: 99214 ==

== ENCOUNTER → 2021-09-19 15:39 | Outpatient (BNVA) | payer MEDICAID, SELFPAY | PROVIDERS: PCP Nurse Practitioner Family; Visit Provider Otolaryngology | DX: H81.10 Benign paroxysmal vertigo, unspecified ear (principal); F17.210 Nicotine dependence, cigarettes, uncomplicated | CPT/HCPCS: 99203 ==

== ENCOUNTER 2021-10-02 09:27 | Outpatient (CLI) | payer MEDICAID, SELFPAY ==
--- NOTE | 2021-10-02 09:30 | USCV_ITS ---
Shankar Uziel Age: 41 Gender: M : 1980 Exam Date: 10/02/2021 09:37 Ordering Phys: Lety Castellanos MD Technologist: Zahraa Cook Exam Location: [facility] [place] Indication: history DVT LLE HISTORY: 06/2021 positive for LLE Femoral and pop veins PROCEDURES: Venous duplex imaging was performed in bilateral lower extremities. The following venous structures were evaluated: common femoral vein, profunda vein, proximal portion of the greater saphenous vein, superficial femoral vein, and the popliteal vein. In addition, the posterior tibial and peroneal trunk were evaluated. FINDINGS: RLE negative for DVT and superficial thrombus. LLE non occlusive, residual thrombus noted in femoral vein all segments, popliteal vein and peroneal veins as evidenced by 2D and color flow Doppler. Augmentation not performed due to presence of DVT CONCLUSIONS comparison 06/28/21 No evidence of right lower extremity DVT. Residual non occlusive thrombus in LEFT common femoral, femoral, popliteal and peroneal veins. Richard Pascual MD (Electronically Signed) Final Date: 02 October 2021 12:27 S
== END 2021-10-02 09:28 | disposition home or self-care (01) ==
PROVIDERS: PCP Nurse Practitioner Family; Visit Provider Internal Medicine Critical Care Medicine
DX: I82.492 Acute embolism and thrombosis of other specified deep vein of left lower extremity
CPT/HCPCS: 93970

== ENCOUNTER 2021-10-24 11:00 | Oncology outpatient (recurring) (ONCR) | payer MEDICAID, SELFPAY ==
[2021-10-16 15:49] LABS: Basophils % 0.1 %; Eosinophils % 0.1 %; Hematocrit 46.9 % (42.0-52.0); Hemoglobin 15.6 g/dL (11.7-16.6); Lymphocytes # 1.3 10^3/uL (0.8-4.8); Lymphocytes % 8.8 %; Mean Corpuscular HGB Conc 33.3 g/dL (30.0-36.0); Mean Corpuscular Hemoglobin 29.1 pg (28.0-34.0); Mean Corpuscular Volume 87.3 fl (80-94); Mean Platelet Volume 9.3 fL (7.4-10.4); Monocytes # 0.3 10^3/uL (0.2-0.9); Monocytes % 2.1 %; Neutrophils # 12.83 10^3/uL (1.8-7.7); Neutrophils % 88.4 %; Nucleated Red Blood Cells % 0 %; Platelet Count 310 10^3/cmm (130-400); Red Blood Count 5.37 10^6/uL (4.1-5.3); Red Cell Distribution Width 13.9 % (12.1-15.1); White Blood Count 14.5 10^3/uL (4.0-10.0)
[2021-10-16 15:57] LABS: Erythrocyte Sedimentation Rate 8 mm/hr (0-10)
[2021-10-16 16:08] LABS: D Dimer <= 0.27 ug/mIFEU (0-0.59)
[2021-10-16 16:17] LABS: Alanine Aminotransferase 23 U/L (0-41); Albumin Level 4.3 g/dL (3.5-5.2); Alkaline Phosphatase 63 U/L (40-130); Anion Gap 15.4 (5-19); Aspartate Amino Transferase 10 U/L (0-40); Blood Urea Nitrogen 19 mg/dL (6-20); Calcium 9.1 mg/dL (8.5-10.5); Carbon Dioxide 27 mmol/L (22-29); Chloride 99 mmol/L (98-107); Globulin 2.8 g/dL (1.3-4.6); Glomerular Filtration Rate 106.5 mL/min (90-130); Glucose 128 mg/dL (65-115); Osmolality Calculated 288 mOsm/kg (285-295); Potassium 4.4 mmol/L (3.5-5.1); Sodium 137 mmol/L (136-145); Total Bilirubin 0.5 mg/dL (0.15-1.2); Total Protein 7.1 g/dL (6.6-8.7)
[2021-10-19 01:12] LABS: CARDIOLIPIN AB (IGA) 2.6 APL-U/mL; CARDIOLIPIN AB (IGG) <2.0 GPL-U/mL; CARDIOLIPIN AB (IGM) 2.7 MPL-U/mL
[2021-10-21 04:49] LABS: Beta 2 Glycoprotein IGA <2.0 U/mL (<20.0); Beta 2 Glycoprotein IGG <2.0 U/mL (<20.0)
--- NOTE | 2021-10-24 11:00 | CT_ITS ---
WS: [id number] CTA OF THE CHEST WITH PULMONARY EMBOLISM PROTOCOL TECHNIQUE: High-resolution contrast enhanced CTA of the chest with coronal and sagittal reformatted i marguerites with pulmonary embolism protocol. MIP images are also reviewed. CLINICAL INFORMATION: Chest pain COMPARISON: June 28, 2021 DLP: 1074.[address] scans at [facility] use at least one of these dose optimization techniques: automated e xposure control; mA and/or kV adjustment per patient size (includes targeted exams where dose is matc hed to clinical indication); or iterative reconstruction. FINDINGS: Proximal main pulmonary arteries are normal. Previously described emboli have resolved. No significan t residual filling defects. No evidence of new or progressive pulmonary embolus. Segmental and subseg mental pulmonary arteries appear normal. Both lungs are well aerated. Slight hazy atelectasis in the lung bases. No acute pulmonary infiltrate s. No focal pneumonia or pleural fluid. A few calcified granulomas. No mediastinal or hilar lymphaden opathy. No axillary lymphadenopathy. Adrenal glands are normal. Hepatomegaly. Small esophageal hiatal hernia. Subcutaneous mass in the RIG HT lower chest wall measuring 3.4 x 4.5 x 4.1 cm AP by transverse by craniocaudal. This is similar in appearance to June 28, 2021. CT/CT angio chest PE protcl [id number] IMPRESSION: 1. Previously described pulmonary emboli have resolved. No residual filling de fects. No new or progressive filling defects. 2. Both lungs are well aerated. Slight hazy atelectasis in lung bases. 3. No other significant changes compared to previous.
[2021-10-24] MEDS: iohexol 350 mg/mL 100 mL Btl IV (11:56)
== END 2021-11-01 23:59 | disposition home or self-care (01) ==
LOC: RAD 11:17 → ONCMED 11:17
PROVIDERS: PCP Nurse Practitioner Family; Visit Provider Internal Medicine Medical Oncology
DX: I26.99 Other pulmonary embolism without acute cor pulmonale (principal)
CPT/HCPCS: 36415; 71275; 80053; 85025; 85378; 85651; 86140; 86146; 86147; 99205

== ENCOUNTER 2022-02-07 07:20 | Outpatient (CLI) | payer MEDICAID, SELFPAY ==
--- NOTE | 2022-02-07 07:32 | CT_ITS ---
WS: [id number] CT CHEST ANGIOGRAPHY WITH REFORMATS HISTORY: CHRONIC PULMONARY EMBOLISM TECHNIQUE: Contiguous axial images are obtained through the chest during arterial injection of intrav enous contrast. Images are reconstructed to evaluate the pulmonary arteries. MIP imaging also reviewe d. All CT scans at [facility] use at least one of these dose optimization techniques: automat ed exposure control; mA and/or kV adjustment per patient size (includes targeted exams where dose is matched to clinical indication); or iterative reconstruction. CONTRAST: Omnipaque 350; 95 mL IV. DLP: 524.18 mGy.cm COMPARISON: 06/28/2021, 10/24/2021 No central pulmonary embolism. There are nonocclusive linear filling defects beginning in the segment al branches of the lower lobes. There is additional very thin linear defect in the RIGHT upper lobe p ulmonary artery. The distribution and appearance suggests these are chronic emboli. Not significantly changed since 06/28/2021. There is no progression of emboli or large saddle embolism. Mild hazy attenuation in the lower lung islas. Similar to prior studies. None consolidation or mass. RIGHT lower lobe granuloma. Normal size aorta. No adenopathy. Well-circumscribed low-attenuation mass suggests soft tissue measures 4.6 x 3.3 cm and is been presen t on multiple prior studies. Small hiatal hernia. Mild hepatic steatosis. Medicinal tablets are in the stomach. No adrenal abnormality. No osseous dest ruction. CT/CT angio chest PE protcl [id number] IMPRESSION: 1. Chronic appearing defects in the pulmonary arteries. Most consistent with n onocclusive chronic pulmonary emboli. No progression over several prior examina tions. No acute pulmonary embolism or sagittal embolism. 2. Stable solid mass soft tissue chest wall. 3. Small hiatal hernia.
[2022-02-07] MEDS: iohexol 350 mg/mL 500 mL Btl (per mL) IV (07:53)
== END 2022-02-07 07:21 | disposition home or self-care (01) ==
LOC: RAD 07:23
PROVIDERS: PCP Nurse Practitioner Family; Visit Provider Nurse Practitioner Family
DX: I27.82 Chronic pulmonary embolism (principal); K44.9 Diaphragmatic hernia without obstruction or gangrene
CPT/HCPCS: 71275; Q9967

== ENCOUNTER 2022-02-16 10:53 | Oncology outpatient (recurring) (ONCR) | payer MEDICAID, SELFPAY | END 2022-03-03 23:59 | disposition home or self-care (01) | LOC: ONCMED 10:53 | PROVIDERS: PCP Nurse Practitioner Family; Visit Provider Internal Medicine Medical Oncology | DX: I26.99 Other pulmonary embolism without acute cor pulmonale (principal); I82.402 Acute embolism and thrombosis of unspecified deep veins of left lower extremity; Z79.01 Long term (current) use of anticoagulants ==

== ENCOUNTER 2022-03-16 09:43 | Outpatient (CLI) | payer MEDICAID, SELFPAY ==
[2022-03-16 11:39] LABS: INR 0.98 (0.8-1.2)
[2022-03-16 11:46] LABS: Alanine Aminotransferase 47 U/L (0-41); Albumin Level 4.2 g/dL (3.5-5.2); Alkaline Phosphatase 75 U/L (40-130); Aspartate Amino Transferase 20 U/L (0-40); Blood Urea Nitrogen 15 mg/dL (6-20); Calcium 9.8 mg/dL (8.5-10.5); Carbon Dioxide 31 mmol/L (22-29); Chloride 101 mmol/L (98-107); Glomerular Filtration Rate 106.5 mL/min (90-130); Glucose 131 mg/dL (65-115); Osmolality Calculated 287 mOsm/kg (285-295); Sodium 137 mmol/L (136-145); Total Bilirubin 0.4 mg/dL (0.15-1.2); Total Protein 7.2 g/dL (6.6-8.7)
[2022-03-16 11:53] LABS: Erythrocyte Sedimentation Rate 3 mm/hr (0-10)
== END 2022-03-16 09:44 | disposition home or self-care (01) ==
PROVIDERS: PCP Nurse Practitioner Family; Visit Provider Dietitian, Registered
DX: R19.7 Diarrhea, unspecified (principal); K51.90 Ulcerative colitis, unspecified, without complications
CPT/HCPCS: 36415; 80053; 85610; 85651; 86140

== ENCOUNTER 2022-04-08 13:59 | Emergency (ER) | payer MEDICAID, SELFPAY ==
[2022-04-08 14:02] VITALS: BP 138/92; PULSE 85; RESP 20; TEMP 37.1; O2SAT 94; BMI 36.8
--- NOTE | 2022-04-08 14:24 | XRR_ITS ---
PROCEDURE INFORMATION: Exam: XR Left Hip Exam date and time: 04/08/2022 3:03 PM Age: 41 years old Clinical indication: Injury or trauma; Fall; Blunt trauma (contusions or hematomas); Left; Hip TECHNIQUE: Imaging protocol: Radiologic exam of the Left hip. Views: 2 or 3 views hip with pelvis when performed. COMPARISON: CT abdomen pelvis w con* [id number] 06/24/2021 5:04 PM FINDINGS: Bones/joints: Unremarkable. No acute fracture. Soft tissues: Unremarkable. XR/XR hip LT 2-3V wo/w pel* [id number] IMPRESSION: No acute findings.
--- NOTE | 2022-04-08 14:26 | XRR_ITS ---
PROCEDURE INFORMATION: Exam: XR Left Shoulder Exam date and time: 04/08/2022 3:03 PM Age: 41 years old Clinical indication: Injury or trauma; Fall; Blunt trauma (contusions or hematomas); Shoulder; Left TECHNIQUE: Imaging protocol: Radiologic exam of the Left shoulder. Views: 2 or more views. COMPARISON: CT angio chest PE protcl [id number] 02/07/2022 7:46 AM FINDINGS: Bones/joints: Normal. Soft tissues: Minimal rotator cuff calcific tendinitis. XR/XR shoulder LT min 2V* [id number] IMPRESSION: 1. No acute findings. 2. Minimal rotator cuff calcific tendinitis.
--- NOTE | 2022-04-08 14:28 | XRR_ITS ---
PROCEDURE INFORMATION: Exam: XR Chest Exam date and time: 04/08/2022 3:03 PM Age: 41 years old Clinical indication: Injury or trauma; Fall; Blunt trauma (contusions or hematomas) TECHNIQUE: Imaging protocol: Radiologic exam of the chest. Views: 1 view. COMPARISON: CT angio chest PE protcl [id number] 02/07/2022 7:46 AM FINDINGS: Lungs: Right upper lobe calcified benign granuloma. No consolidation. Pleural spaces: Unremarkable. No pleural effusion. No pneumothorax. Heart/Mediastinum: Unremarkable. No cardiomegaly. Bones/joints: Unremarkable. XR/XR chest 1V [id number] IMPRESSION: No acute findings.
--- NOTE | 2022-04-08 14:32 | ED_ITS ---
HPI - Fall General: Chief Complaint: Fall Stated Complaint: fall, left side pain Time Seen by Provider: 04/08/22 14:03 Source: patient Mode of arrival: ambulatory Limitations: no limitations History of Present Illness: This 41-year-old male presents to the ER for evaluation following a fall. This morning around 7 AM, patient slipped on ice and fell onto the left side of the body. He denies head injury or loss of consciousness. The left shoulder and left hips hurt. He is able to walk but with an antalgic gait. He denies any other injuries. Review of Systems General: Reports: 10 or more systems reviewed and unremarkable except in HPI and below Musc: Reports: joint pain (Left shoulder and left hip joint) PFSH ED PFSH: Medical History (Updated 04/08/22 @ 16:09 by Yemi Gregorio MD) Anxiety and depression Hyperlipidemia Hypertension Morbid obesity -BMI-41 kg/m2 Nicotine addiction Obstructive sleep apnea Pulmonary embolism Recurrent deep vein thrombosis (DVT) Type 2 diabetes mellitus Ulcerative colitis Surgical History H/O lymph node excision Right inguinal lymph node biopsy, determined to be cat scratch disease History of angioplasty pulmonary artery thrombectomy x 1 and left lower extremity venous thrombolysis x 2 Family History Father CAD (coronary artery disease) Diabetes Hypertension Stroke Mother Cancer Diabetes Other Clotting disorder Heart disease Hyperlipidemia Denies family history of Dementia Psychiatric illness Chronic kidney disease (CKD) Suicide Anesthesia complication Bleeding disorder Lung disease Social History Smoking and tobacco status: current every day smoker (0.5 ppd) cigarettes Packs smoked per day: 0.5 Years cigarettes smoked: 21 [ Other cigarette details: Started at age 14] Quit status (tobacco): considering quitting Smoking risk assessment/counseling performed?: Yes Alcohol intake: current Alcohol intake frequency: few times a month Counseling given: No Counseling given: No Lives independently: Yes Household members: spouse Marital status: Current occupational status: employed 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 History of recent travel: No Current gender identity: Male Physical Exam Const: COMMON NORMALS: patient oriented x3, no limitations and alert OTHER: Moderate distress due to pain HENMT: COMMON NORMALS: normocephalic HEAD & SCALP: normocephalic Neck/C-Spine: COMMON NORMALS: full ROM and supple Chest: COMMONS NORMALS: normal inspection of the chest Resp: COMMON NORMALS: normal respiratory effort, No retractions, No use of accessory muscles and clear to auscultation bilaterally AUSCULTATION: clear to auscultation bilaterally Cardio: COMMON NORMALS: regular rate, regular rhythm and No murmurs present (Cardio) RATE: regular rate RHYTHM: regular rhythm GI: COMMON NORMALS: Normal to inspection, nondistended, normoactive bowel sounds present and non-tender : COMMON NORMALS: Yes no CVA tenderness BLADDER/KIDNEY EXAM: Yes no CVA tenderness Back/Pelvis: COMMON NORMALS: no CVA tenderness and no thoracic nor lumbar tenderness Extremity: GENERAL: Yes normal exam except as noted OTHER: Marked limitation left shoulder movement due to pain. No distal neurovascular deficit. There is also limitation of left hip flexion due to pain. There is no distal neurovascular deficit. Neuro: COMMON NORMALS: patient oriented x3 and no focal motor deficits SENSORIUM/ORIENTATION: Yes alert Course Vital Signs: Vital signs: Vital Signs Temperature 98.7 F 04/08/22 14:02 Pulse Rate 85 04/08/22 14:02 Respiratory Rate 20 H 04/08/22 14:02 Blood Pressure 138/92 04/08/22 14:02 Pulse Oximetry 94 04/08/22 14:02 Oxygen Delivery Me thod 04/08/22 14:02 MDM - Fall Medical Decision Making Medical decision making: This 41-year-old male presents to the ER for evaluation following a fall. X- rays are negative for fracture/dislocation. He will be treated symptomatically. He was advised to follow-up with his primary care physician. Reasons to return were discussed. Lab Data Radiology Impressions Hip/Pelvis X-Ray 04/08/22 14:24 IMPRESSION: No acute findings. Shoulder X-Ray 04/08/22 14:26 IMPRESSION: 1. No acute findings. 2. Minimal rotator cuff calcific tendinitis. Chest X-Ray 04/08/22 14:28 IMPRESSION: No acute findings. Discharge Plan Discharge Patient Disposition: Home Clinical Impression: Contusion of left shoulder, Contusion of hip, left Condition: Stable Prescriptions: New tramadol 50 mg tablet 50 mg PO Q6H PRN (Reason: pain) Qty: 20 0RF No Action atorvastatin 20 mg tablet 20 mg PO QAM Januvia 25 mg tablet 25 mg PO QAM Eliquis 5 mg tablet 5 mg PO BID (DME) comp.stocking,thigh,long,large Misc See Rx Instructions .ROUTE .MEDSUPPLY Qty: 2 0RF Rx Instructions: As directed aspirin 81 mg tablet,delayed release (DR/EC) 81 mg PO QAM mesalamine 250 mg capsule, extended release 1,000 mg PO QID prednisone 20 mg tablet 60 mg PO DAILY 5 Days Qty: 15 0RF albuterol sulfate [ProAir HFA] 90 mcg/actuation HFA aerosol inhaler 2 puff INHALATION Q4H PRN (Reason: Shortness Of Breath) Qty: 6.7 0RF azelastine 137 mcg (0.1 %) aerosol,spray 2 spray intranasal BID PRN (Reason: unknown) Qty: 30 3RF Rx Instructions: administer into each nostril lisinopril 20 mg Tablet 20 mg PO QAM fluoxetine 40 mg capsule 40 mg PO QAM triamcinolone acetonide 0.025 % ointment 1 applic TOPICAL BID PRN (Reason: Rash) Men's One Daily Tablet 1 tab PO DAILY Discharge Orders: Discharge ED (Routine); Ordered 04/08/22 Ordered By: Yemi Gregorio Referrals: Homero Saucedo MD [Primary Care Provider] - Discharge Diet: Usual diet Discharge Activity: Resume usual activity Patient Instructions: Opioid Safety, Pain Management Activity Restrictions/Additional Instructions: Your x-rays show that you did not break any of your bones. Take tramadol as needed for pain. You may take OTC tylenol or motrin with it. Follow-up with your primary care physician in a week for reevaluation. Return with new or worsening symptoms. Coding Level of Care Code ED Manager Environmental Health And Safety for [facility] Fwd Exam Comprehensive
[2022-04-08] MEDS: ketorolac 60 mg/2 mL INJ IM (14:52)
[2022-04-08] MEDS: orphenadrine 30 mg/mL Inj 2 mL 60 MG IM (14:53)
[2022-04-08 16:17] VITALS: RESP 16
[2022-04-08] MEDS: morphine 4 mg/mL SDV 1 mL IM (16:17)
[2022-04-08 16:23] VITALS: BP 132/91; PULSE 87; RESP 18; O2SAT 95
== END 2022-04-08 16:22 | disposition home or self-care (01) ==
PROVIDERS: Emergency Provider Family Medicine; PCP Family Medicine
DX: S40.012A Contusion of left shoulder, initial encounter (principal); S70.02XA Contusion of left hip, initial encounter; Z79.01 Long term (current) use of anticoagulants; Z79.82 Long term (current) use of aspirin; F17.210 Nicotine dependence, cigarettes, uncomplicated; E78.5 Hyperlipidemia, unspecified; I10 Essential (primary) hypertension; E11.9 Type 2 diabetes mellitus without complications; W00.0XXA Fall on same level due to ice and snow, initial encounter
CPT/HCPCS: 71045; 73030; 73502; 96372; 99284; J1885; J2270; J2360

== ENCOUNTER 2022-06-14 10:09 | Day surgery (SDC) | payer MEDICAID, SELFPAY ==
--- NOTE | 2022-05-30 14:25 | SUR.PREOP ---
patient states he took his eliquis and aspirin this am 05/30/22. doctor Tae office contacted and informed.They stated he had to contact office to reschedule. Jyoti GOODEN informed. centralized scheduling informed. patient called back and informed to reschedule.
[2022-06-13 15:47] VITALS: BMI 37.9
[2022-06-14] VITALS (12 sets, daily range): BP systolic 98–153; BP diastolic 59–106; PULSE 57–86; RESP 15–18; TEMP 36.3; O2SAT 90–95
[2022-06-14] MEDS: sodium chloride 0.9% 1,000 ML 30 ML IV (10:45)
[2022-06-14 10:49] LABS: Glucose Point of Care 182 mg/dL (70-110)
--- NOTE | 2022-06-14 12:05 | ANES.PREANE2 ---
Pre-Anesthetic Assessment Height/Weight: Height 1.96 m Weight 145.15 kg Temp Pulse Resp BP Pulse Ox O2 Del Method 97.4 F L 86 18 118/74 94 Room Air 06/14/22 10:35 06/14/22 10:35 06/14/22 10:35 06/14/22 10:53 06/14/22 10:35 06/14/22 10:35 Preop Diagnosis: subcutaneous masses of chest and posterior neck Operation Date: 06/14/22 11:45 Proposed Procedures p excisionb of subq masses check ans posterior neck [id number], R22.1,r22.9(Not Applicable) - Jose Elias Pastrana, DO Familial anesthetic complications: none Was Beta Erika taken within 24 hours: N/A Was Clonidine taken within 24 hours: N/A Last intake: Intake Last Liquid Date 06/13/22 Last Liquid Time 22:00 Last Solid Date 06/13/22 Last Solid Time 18:00 Social Tobacco and No alcohol Exam alert, oriented x 3, clear to auscultation bilaterally and regular rate & rhythm Airway Submandibular: within normal limits Cervical ROM: within normal limits Mallampati: Class II Dentition: chipped Comments: Comments: Missing several Pulmonary Chronic Obstructive Pulmonary Disease CV/HEM Deep Vein Thrombosis and Hypertension GI UC Metabolic Hyperlipidemia and Morbid Obesity Anesthetic Plan ASA status: 3 Anesthesia: Choice Medications/Allergies Home Medications Medication Instructions Recorded Confirmed Last Taken Type atorvastatin 20 mg tablet (Lipitor) 20 mg PO QAM 03/24/19 06/14/22 06/13/22 History apixaban 5 mg tablet (Eliquis) 5 mg PO BID 10/08/19 06/14/22 06/11/22 21:00 History comp.stocking,thigh,long,large #2 ea 10/08/19 05/01/22 Unknown Rx sitagliptin phosphate 25 mg tablet 25 mg PO QAM 10/08/19 06/14/22 06/13/22 History (Januvia) aspirin 81 mg tablet,delayed 81 mg PO QAM 01/13/20 06/14/22 06/13/22 History release lisinopril 20 mg tablet 20 mg PO QAM 03/30/21 06/14/22 06/13/22 History triamcinolone acetonide 0.025 % 1 applic topical BID PRN Rash 03/30/21 06/14/22 10/02/21 History topical ointment multivitamin with minerals (Men's 1 tab PO DAILY 06/28/21 06/14/22 06/13/22 History One Daily tablet) albuterol sulfate 90 mcg/actuation 2 puff inhalation Q4H PRN 01/19/22 06/14/22 3 Months Ago Rx aerosol inhaler (ProAir HFA) Shortness Of Breath #6.7 grams ~03/16/22 mesalamine 250 mg capsule,extended 1,000 mg PO QID 01/19/22 06/14/22 06/13/22 History release (Pentasa) escitalopram oxalate 10 mg tablet 10 mg PO 1XD 05/30/22 06/14/22 06/13/22 History (Lexapro) Allergies Allergy/AdvReac Type Severity Reaction Status Date / Time rofecoxib [From Vioxx] Allergy Severe anaphalyxis Verified 06/14/22 10:29 nickel Allergy ADR-Itching Verified 05/01/22 09:22 Current Medications Generic Name Dose Route Start Last Admin Trade Name Freq PRN Reason Stop Dose Admin Sodium Chloride 1,000 mls @ 30 mls/hr 06/14/22 10:30 06/14/22 10:45 Sodium Chloride 0.9% IV 06/15/22 10:29 30 mls/hr .Q24H WARREN Administration PFSH Anesthesia Medical History Anxiety and depression Hyperlipidemia Hypertension Morbid obesity -BMI-41 kg/m2 Nicotine addiction Obstructive sleep apnea Pulmonary embolism Recurrent deep vein thrombosis (DVT) Type 2 diabetes mellitus Ulcerative colitis Surgical History H/O lymph node excision Right inguinal lymph node biopsy, determined to be cat scratch disease History of angioplasty pulmonary artery thrombectomy x 1 and left lower extremity venous thrombolysis x 2 Hx of colonoscopy with polypectomy 2021 Family History Father CAD (coronary artery disease) Diabetes Hypertension Stroke Mother Cancer Diabetes Other Clotting disorder Heart disease Hyperlipidemia Denies family history of Dementia Psychiatric illness Chronic kidney disease (CKD) Suicide Anesthesia complication Bleeding disorder Lung disease Social History Smoking and tobacco status: former smoker (0.5 ppd) Quit status (tobacco): considering quitting Smoking risk assessment/counseling performed?: Yes Alcohol intake: former Counseling given: No Counseling given: No Lives independently: Yes Household members: spouse Marital status: Current occupational status: employed 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
--- NOTE | 2022-06-14 12:23 | P.HP_ITS ---
Providers/Chief Complaint Primary Care Provider: Karen Badillo NP Chief Complaint: SUBCUTANEOUS MASS History of Present Illness Uziel Chaparro is a 42 year old male with subcutaneous masses of chest and posterior neck Medications/Allergies Home Medications Medication Instructions Recorded Confirmed Last Taken Type atorvastatin 20 mg tablet (Lipitor) 20 mg PO QAM 03/24/19 06/14/22 06/13/22 History apixaban 5 mg tablet (Eliquis) 5 mg PO BID 10/08/19 06/14/22 06/11/22 21:00 History comp.stocking,thigh,long,large #2 ea 10/08/19 05/01/22 Unknown Rx sitagliptin phosphate 25 mg tablet 25 mg PO QAM 10/08/19 06/14/22 06/13/22 History (Januvia) aspirin 81 mg tablet,delayed 81 mg PO QAM 01/13/20 06/14/22 06/13/22 History release lisinopril 20 mg tablet 20 mg PO QAM 03/30/21 06/14/22 06/13/22 History triamcinolone acetonide 0.025 % 1 applic topical BID PRN Rash 03/30/21 06/14/22 10/02/21 History topical ointment multivitamin with minerals (Men's 1 tab PO DAILY 06/28/21 06/14/22 06/13/22 History One Daily tablet) albuterol sulfate 90 mcg/actuation 2 puff inhalation Q4H PRN 01/19/22 06/14/22 3 Months Ago Rx aerosol inhaler (ProAir HFA) Shortness Of Breath #6.7 grams ~03/16/22 mesalamine 250 mg capsule,extended 1,000 mg PO QID 01/19/22 06/14/22 06/13/22 History release (Pentasa) escitalopram oxalate 10 mg tablet 10 mg PO 1XD 05/30/22 06/14/22 06/13/22 History (Lexapro) Allergies Allergy/AdvReac Type Severity Reaction Status Date / Time rofecoxib [From Vioxx] Allergy Severe anaphalyxis Verified 06/14/22 10:29 nickel Allergy ADR-Itching Verified 05/01/22 09:22 PFSH Acute PFSH: Medical History Anxiety and depression Hyperlipidemia Hypertension Morbid obesity -BMI-41 kg/m2 Nicotine addiction Obstructive sleep apnea Pulmonary embolism Recurrent deep vein thrombosis (DVT) Type 2 diabetes mellitus Ulcerative colitis Surgical History H/O lymph node excision Right inguinal lymph node biopsy, determined to be cat scratch disease History of angioplasty pulmonary artery thrombectomy x 1 and left lower extremity venous thrombolysis x 2 Hx of colonoscopy with polypectomy 2021 Family History Father CAD (coronary artery disease) Diabetes Hypertension Stroke Mother Cancer Diabetes Other Clotting disorder Heart disease Hyperlipidemia Denies family history of Dementia Psychiatric illness Chronic kidney disease (CKD) Suicide Anesthesia complication Bleeding disorder Lung disease Social History Smoking and tobacco status: former smoker (0.5 ppd) Quit status (tobacco): considering quitting Smoking risk assessment/counseling performed?: Yes Alcohol intake: former Counseling given: No Counseling given: No Lives independently: Yes Household members: spouse Marital status: Current occupational status: employed 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
[2022-06-14] MEDS: ceFAZolin 2,000 MG in sodium chloride 0.9% (plus) 50 ML 100 MG IV (12:30)
[2022-06-14] MEDS: lidocaine-epi 2% 20 mL INJ 15 ML INJECTION (13:19)
--- NOTE | 2022-06-14 13:33 | PM.OP ---
Operative Report Date of procedure: June 14, 2022 Pre-op diagnosis: Preop Diagnosis subcutaneous masses of chest and posterior neck Post-op diagnosis: same Procedure done: Excision of subcutaneous masses of chest and posterior neck Implants: None Specimens removed/disposition: Subcutaneous masses of chest and posterior neck Surgeon: Dr. Jose Elias Pastrana DO Anesthesia: MAC Estimated blood loss (mL): 5 Complications: None apparent Brief History: This very pleasant 42-year-old gentleman who presented my office with a large subcutaneous mass of his chest and a small subcutaneous mass of his posterior neck. He desired excision. The risk and benefits were explained and documented. Procedure: The patient was placed on the OR table in left lateral decubitus position. Adequate sedation was achieved by the department anesthesia. The anterior chest was inspected prepped and draped in the usual sterile fashion. 2% lidocaine with epinephrine was used to anesthetize the area around the lesion which. A 15 blade scalpel then used to make an elliptical excision measuring 4 centimeters in length. Incision was carried down to subcutaneous tissue and the specimen was passed off intact. The specimen measured 5.2 cm in greatest diameter. 3-0 Vicryl was used to approximate the dermis, and 4-0 Monocryl was use to close the skin in a running subcuticular fashion. Hemostasis was noted. Skin glue was used. Drapes were then taken down and attention was drawn to his posterior neck. The posterior neck was inspected prepped and draped in usual sterile fashion. A 1 cm elliptical excision was placed over the lesion after localization. Dissection was carried down to subcutaneous tissue with electrocautery. A small 0.9 cm subcutaneous mass was excised intact. Dermis was approximated with 3-0 Vicryl in an interrupted fashion. Skin glue was applied. Patient tolerated the procedure well.
[2022-06-14] MEDS: fentaNYL 50 mcg/mL INJ 2mL 100 MCG IVP (13:49)
--- NOTE | 2022-06-14 15:26 | ANE.PACU2 ---
Inpatient post-anesthesia follow up: Airway intact: Yes Vital signs: Temperature 97.4 F Pulse Rate 70 Respiratory Rate 16 Blood Pressure 124/79 Pulse Oximetry 95 Oxygen Delivery Me thod Room Air Oxygen Flow Rate Fraction of Inspir ed Oxygen Hydration adequate: Yes Nausea and vomiting: No Pain level: 3 Mental status: Baseline
== END 2022-06-14 14:40 | disposition home or self-care (01) ==
PROVIDERS: PCP Nurse Practitioner Family; Visit Provider Surgery
PROC: (CPT 11406; principal; 2022-06-14 11:35)
DX: L72.0 Epidermal cyst (principal); Z79.01 Long term (current) use of anticoagulants; Z79.52 Long term (current) use of systemic steroids; Z79.84 Long term (current) use of oral hypoglycemic drugs; F41.9 Anxiety disorder, unspecified; F32.A Depression, unspecified; I10 Essential (primary) hypertension; E66.01 Morbid (severe) obesity due to excess calories; Z68.37 Body mass index [BMI] 37.0-37.9, adult; E11.9 Type 2 diabetes mellitus without complications; Z86.711 Personal history of pulmonary embolism; Z86.718 Personal history of other venous thrombosis and embolism; G47.33 Obstructive sleep apnea (adult) (pediatric); Z87.891 Personal history of nicotine dependence
CPT/HCPCS: 11406; 11421; 36416; 82962; 88307; J0690; J2250; J2704; J3010; J3490; J7030

== ENCOUNTER 2022-06-21 10:35 | Outpatient (CLI) | payer MEDICAID, SELFPAY ==
--- NOTE | 2022-06-21 10:50 | XRR_ITS ---
PROCEDURE INFORMATION: Exam: XR Right Shoulder Exam date and time: 06/21/2022 11:02 AM Age: 42 years old Clinical indication: Injury or trauma; Other: Throwing something; Sprain or strain; Shoulder; Right; Injury date: 06/19/22; Additional info: Right shoulder injury TECHNIQUE: Imaging protocol: Radiologic exam of the right shoulder. Views: 1 view. COMPARISON: CR XR chest 1V [id number] 04/08/2022 3:03 PM FINDINGS: Bones/joints: Normal. Soft tissues: Normal. XR/XR shoulder RT 1V [id number] IMPRESSION: No acute findings.
== END 2022-06-21 10:36 | disposition home or self-care (01) ==
LOC: RAD 10:38
PROVIDERS: PCP Nurse Practitioner Family; Visit Provider Emergency Medicine
DX: S49.91XA Unspecified injury of right shoulder and upper arm, initial encounter (principal); X58.XXXA Exposure to other specified factors, initial encounter
CPT/HCPCS: 73020

== ENCOUNTER 2022-07-24 16:08 | Emergency (ER) | payer MEDICAID, SELFPAY ==
[2022-07-24 16:30] VITALS: BP 130/79; PULSE 88; RESP 14; TEMP 36.7; O2SAT 95; BMI 37.5
--- NOTE | 2022-07-24 17:20 | XRR_ITS ---
PROCEDURE INFORMATION: Exam: XR Right Shoulder Exam date and time: 07/24/2022 5:28 PM Age: 42 years old Clinical indication: Injury or trauma; Other: Thowing injury 3 mos ago; Sprain or strain; Arm, upper; Right; Additional info: Shoulder injury from throwing ball TECHNIQUE: Imaging protocol: Radiologic exam of the right shoulder. Views: 2 or more views. COMPARISON: CR XR shoulder RT 1V [id number] 06/21/2022 11:02 AM FINDINGS: Bones/joints: Normal. Soft tissues: Minimal rotator cuff calcific tendinitis. XR/XR shoulder RT min 2V* [id number] IMPRESSION: Minimal rotator cuff calcific tendinitis.
--- NOTE | 2022-07-24 17:58 | ED_ITS ---
HPI - Extremity Problem General: Chief complaint: Extremity Problem,Nontraumatic Stated complaint: Right Shoulder Time Seen by Provider: 07/24/22 17:36 History of Present Illness: Patient is a 42-year-old male comes to the ED with right shoulder pain. Patient says he injured his shoulder approximately 3 months ago when he was throwing a ball playing fetch with his dog. He states that 3 months ago he threw the ball and then felt a sharp pain in his right shoulder and has been dealing with it ever since. He rates pain currently 9 out of 10. Pain radiates all the way down into right hand. He also endorses some numbness and tingling sensation in his thumb, index finger and ring finger. He has been working with his PCP currently to set up an outpatient MRI of shoulder but insurance has been difficult. Patient has a history of diabetes and is on a blood thinner. Associated symptoms: Deny chest pain, fever(s) or rash Review of Systems Const: Denies: fever(s), chills or fatigue Eyes: Denies: change in vision or eye discomfort ENMT: Denies: throat pain, odynophagia, nasal discharge or nasal congestion Card: Denies: chest pain, palpitations, edema, swelling of feet/ankles, dyspnea on exertion or orthopnea Resp: Denies: dyspnea, productive cough or non-productive cough GI: Denies: abdominal pain, nausea, vomiting, diarrhea, constipation or hematochezia : Denies: flank pain, difficulty urinating, dysuria or hematuria Musc: Reports: extremity pain (Right shoulder) and limited range of motion (Right shoulder); Denies: neck pain, back pain or extremity swelling Skin/Breast: Denies: rash or new lesions Neuro: Denies: headache(s), numbness in extremities or weakness in extremities PFS ED PFSH: Medical History Anxiety and depression Hyperlipidemia Hypertension Morbid obesity -BMI-41 kg/m2 Nicotine addiction Obstructive sleep apnea Pulmonary embolism Recurrent deep vein thrombosis (DVT) Type 2 diabetes mellitus Ulcerative colitis Surgical History H/O lymph node excision Right inguinal lymph node biopsy, determined to be cat scratch disease History of angioplasty pulmonary artery thrombectomy x 1 and left lower extremity venous thrombolysis x 2 History of surgery Excision of mass Hx of colonoscopy with polypectomy 2021 Family History Father CAD (coronary artery disease) Diabetes Hypertension Stroke Mother Cancer Diabetes Other Clotting disorder Heart disease Hyperlipidemia Denies family history of Dementia Psychiatric illness Chronic kidney disease (CKD) Suicide Anesthesia complication Bleeding disorder Lung disease Social History Smoking and tobacco status: former smoker (0.5 ppd) Quit status (tobacco): considering quitting Smoking risk assessment/counseling performed?: Yes Alcohol intake: former Counseling given: No Substance/Drug Use: never Counseling given: No Lives independently: Yes Household members: spouse Marital status: Current occupational status: employed 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 Do you think of yourself as: Straight/Heterosexual Current gender identity: Male Physical Exam Const: COMMON NORMALS: no acute distress, patient oriented x3 and alert GENERAL APPEARANCE: cooperative HENMT: COMMON NORMALS: normocephalic HEAD & SCALP: normocephalic MOUTH: Normal oral and palatal mucosa present THROAT: posterior oropharynx normal and uvula midline Neck/C-Spine: COMMON NORMALS: supple GENERAL: Yes normal visual inspection Resp: COMMON NORMALS: normal respiratory effort, No retractions, No use of accessory muscles and clear to auscultation bilaterally AUSCULTATION: clear to auscultation bilaterally Cardio: COMMON NORMALS: regular rate, regular rhythm, S1 normal heart sound present, S2 normal heart sound present, No gallops present (Cardio), No clicks present (Cardio), No murmurs present (Cardio) and Peripheral pulses 2+ throughout RATE: regular rate RHYTHM: regular rhythm HEART SOUNDS: S1 normal heart sound present and S2 normal heart sound present PERIPHERAL PULSES: Peripheral pulses 2+ throughout GI: COMMON NORMALS: Normal to inspection, nondistended, normoactive bowel sounds present, Soft to palpation, non-tender and no masses PALPATION: Yes Soft to palpation : COMMON NORMALS: Yes no CVA tenderness BLADDER/KIDNEY EXAM: Yes no CVA tenderness Back/Pelvis: COMMON NORMALS: no CVA tenderness Extremity: NARRATIVE EXTREMITY EXAM: Right shoulder?no visible deformity, ecchymosis or swelling noted. Tenderness over proximal head of humerus. Limited range of motion?abduction of right arm due to pain. Neurovascular intact distally. Neuro: COMMON NORMALS: patient oriented x3 SENSORIUM/ORIENTATION: Yes alert GAIT: Yes Normal gait present Skin: GENERAL SKIN EXAM: dry skin Course Vital Signs: Vital signs: Vital Signs Temperature 98.0 F 07/24/22 16:30 Pulse Rate 88 07/24/22 16:30 Respiratory Rate 14 07/24/22 16:30 Blood Pressure 130/79 07/24/22 16:30 Pulse Oximetry 95 07/24/22 16:30 Oxygen Delivery Me thod Room Air 07/24/22 16:30 MDM - Extremity (Nontraumatic) Medical Decision Making Patient is a 42-year-old male comes to the ED with right shoulder pain. Patient says he injured his shoulder approximately 3 months ago when he was throwing a ball playing fetch with his dog. He states that 3 months ago he threw the ball and then felt a sharp pain in his right shoulder and has been dealing with it ever since. He rates pain currently 9 out of 10. Pain radiates all the way down into right hand. He also endorses some numbness and tingling sensation in his thumb, index finger and ring finger. He has been working with his PCP currently to set up an outpatient MRI of shoulder but insurance has been difficult. Patient has a history of diabetes and is on a blood thinner.Right shoulder?no visible deformity, ecchymosis or swelling noted. Tenderness over proximal head of humerus. Limited range of motion?abduction of right arm due to pain. Neurovascular intact distally. Vitals are stable. Right shoulder x- ray?rotator cuff calcific tendinitis. Patient was put in a shoulder sling and I placed an order with case management for patient be referred to Ortho for follow-up on right shoulder pain. He was stable for discharge home and diagnosed with calcific tendinitis of right shoulder. He was sent home with a prescription for muscle relaxer and told to continue taking his Tylenol at home to help with pain. Return to ED precautions given. Patient understood and agreed with plan. Lab Data Radiology Impressions Shoulder X-Ray 07/24/22 17:20 IMPRESSION: Minimal rotator cuff calcific tendinitis. Discharge Plan Discharge Patient Disposition: Home Clinical Impression: Calcific tendinitis of right shoulder Condition: Stable Prescriptions: New cyclobenzaprine 10 mg tablet 10 mg PO BID PRN (Reason: muscle spasms and pain) Qty: 20 0RF No Action atorvastatin [Lipitor] 20 mg tablet 20 mg PO QAM Januvia 25 mg tablet 25 mg PO QAM Eliquis 5 mg tablet 5 mg PO BID Hold Instructions: Resume on 06/17/22. (DME) comp.stocking,thigh,long,large Misc See Rx Instructions .ROUTE .MEDSUPPLY Qty: 2 0RF Rx Instructions: As directed aspirin 81 mg tablet,delayed release (DR/EC) 81 mg PO QAM Pentasa 250 mg capsule, extended release 1,000 mg PO QID albuterol sulfate [ProAir HFA] 90 mcg/actuation HFA aerosol inhaler 2 puff INHALATION Q4H PRN (Reason: Shortness Of Breath) Qty: 6.7 0RF cyclobenzaprine 5 mg tablet 5 mg PO TID PRN (Reason: muscle pain) Qty: 14 0RF lisinopril 20 mg Tablet 20 mg PO QAM triamcinolone acetonide 0.025 % ointment 1 applic TOPICAL BID PRN (Reason: Rash) escitalopram oxalate [Lexapro] 10 mg tablet 10 mg PO 1XD DOK 100 mg capsule 100 mg PO BID Qty: 14 0RF Men's One Daily Tablet 1 tab PO DAILY Discharge Orders: Discharge ED (Routine); Ordered 07/24/22 Ordered By: Kelby Acosta Referrals: Karen Badillo NP [Primary Care Provider] - Discharge Diet: Regular Discharge Activity: Limit activity as instructed Patient Instructions: Calcific Tendinitis (ED), Shoulder Pain (ED) Activity Restrictions/Additional Instructions: Follow-up with medical provider as directed. Case management should be contacted in the next several days to set up an appoint with Ortho for follow-up on right shoulder pain. Wear shoulder sling daily as needed for comfort. Remember to remove arm from shoulder sling multiple times throughout the day and do some range of motion exercises to prevent frozen shoulder. Take medications as prescribed. Return to the ER or your medical provider if condition worsens. Please read and understand discharge instructions. Thank you for choosing [facility] for your healthcare needs today. Mario palm realize this is an emergency room and that we are providing you with a medical screening exam and this may not be complete and all inclusive of all the testing and or work up that you may need to determine your ailment or severity of your illness. It is very important that you follow up as instructed or that you return to the Emergency Department should you have concerns or if your condition changes or worsens in any way. 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
[2022-07-24] MEDS: dexamethasone 10 mg/mL INJ IM (18:07)
--- NOTE | 2022-07-25 08:03 | PC.NURSE ---
Addendum entered by Yoly Donald 07/31/22 12:36: Patient had a follow up appointment scheduled with ortho - patient did attend appointment. Addendum entered by Maribel Valverde RN 07/25/22 15:27: patient scheduled for 07/26 at 11:15 w/ maximo galvez (millie supervising) - pt is aware Original Note: Patient seen in the ED on 07/24/22 and referred to ortho for right shoulder pain. TCM sent message to call pt with an appt.
== END 2022-07-24 18:40 | disposition home or self-care (01) ==
PROVIDERS: Emergency Provider Physician Assistant; PCP Nurse Practitioner Family
DX: M75.31 Calcific tendinitis of right shoulder (principal); Z79.01 Long term (current) use of anticoagulants; Z79.82 Long term (current) use of aspirin; Z87.891 Personal history of nicotine dependence; E78.5 Hyperlipidemia, unspecified; I10 Essential (primary) hypertension; E11.9 Type 2 diabetes mellitus without complications
CPT/HCPCS: 73030; 96372; 99284; J1100

== ENCOUNTER 2022-08-17 08:40 | Outpatient (CLI) | payer MEDICAID, SELFPAY ==
--- NOTE | 2022-08-17 08:45 | MR_ITS ---
WS: [id number] MRI RIGHT SHOULDER NONCONTRAST TECHNIQUE: Sagittal T2, coronal T1, T2 and proton density imaging. Axial gradient PDE imaging. CLINICAL INFORMATION: shoulder pain COMPARISON: 2007 FINDINGS: Moderate degenerative arthritis AC joint with mild edema progressed compared to previous. Mild downsl oping acromion. Mild narrowing of the subacromial space with slight subacromial spurring. Slight impi ngement on the distal supraspinatus. Trace subacromial fluid. Normal distal supraspinatus and infraspinatus. Normal teres minor. Normal subscapularis. Normal bicep s tendon in the bicipital groove. Glenoid labrum appears grossly normal. Normal biceps in the bicipit al groove. Normal biceps labral anchor. Normal intra-articular biceps tendon. MR/MR shoulder RT wo con* [id number] IMPRESSION: 1. Moderate degenerative arthritis AC joint with mild edema and mild downslopi ng acromion. 2. Slight impingement on the distal supraspinatus appears intact. 3. No high-grade rotator cuff tears. 4. Normal biceps tendon in the bicipital groove. 5. Normal intra-articular biceps tendon and biceps labral anchor.
== END 2022-08-17 08:41 | disposition home or self-care (01) ==
LOC: RAD 08:43
PROVIDERS: PCP Nurse Practitioner Family; Visit Provider Nurse Practitioner Family
DX: M67.911 Unspecified disorder of synovium and tendon, right shoulder (principal); M75.31 Calcific tendinitis of right shoulder; M19.011 Primary osteoarthritis, right shoulder
CPT/HCPCS: 73221

== ENCOUNTER → 2022-09-19 15:12 | Outpatient (BNVA) | payer MEDICAID, SELFPAY | PROVIDERS: PCP Nurse Practitioner Family; Visit Provider Specialist | DX: M67.911 Unspecified disorder of synovium and tendon, right shoulder (principal); M25.811 Other specified joint disorders, right shoulder | CPT/HCPCS: 73030 ==

== ENCOUNTER → 2022-10-01 15:41 | Outpatient (BNVA) | payer MEDICAID, SELFPAY | PROVIDERS: PCP Nurse Practitioner Family; Visit Provider Internal Medicine Pulmonary Disease | DX: J30.2 Other seasonal allergic rhinitis | CPT/HCPCS: 36415; 82785; 86003 ==

== ENCOUNTER 2023-01-30 19:27 | Emergency (ER) | payer OTHER, SELFPAY ==
[2023-01-30 19:50] VITALS: BP 142/111; PULSE 108; RESP 17; TEMP 36.8; O2SAT 94; BMI 38.4
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
[2023-01-30] MEDS: HYDROcodone-acetaminophen 5-325 mg Tablet 1 TAB PO (22:47)
[2023-01-30 22:56] LABS: Add Urine Microscopic? YES; Bilirubin Urine Neg (Negative); Blood Urine Neg (Negative); Glucose Urine UA 4+ (Normal); Ketones Urine 1+ (Negative); Leukocyte Esterase Urine Negative (Negative); Nitrate Urine Negative (Negative); Protein Urine 1+ (Negative); Specific Gravity, Urine 1.025 (1.005-1.030); Urine Appearance Clear (CLEAR); Urine Color Yellow (Yellow); Urobilinogen Urine Neg (Negative); pH Urine 5 (5-7)
[2023-01-30 22:57] LABS: Amphetamines Screen Urine Negative (Negative); Bacteria Urine TRACE /hpf; Barbiturates Screen Urine Negative (Negative); Benzodiazepines Screen Urine Negative (Negative); Cocaine Screen Urine Negative (Negative); Opiate Screen Urine Negative (Negative); PCP Screen Urine Negative (Negative); THC Screen Urine Positive (Negative)
[2023-01-30 22:58] LABS: Add Urine Culture? No; Mucus Urine 3+ /hpf
== END 2023-01-30 22:47 | disposition home or self-care (01) ==
PROVIDERS: Emergency Provider Emergency Medicine; PCP Nurse Practitioner Family
DX: S09.8XXA Other specified injuries of head, initial encounter (principal); Y04.2XXA Assault by strike against or bumped into by another person, initial encounter; Z79.01 Long term (current) use of anticoagulants; Z79.82 Long term (current) use of aspirin; E78.5 Hyperlipidemia, unspecified; I10 Essential (primary) hypertension; E11.9 Type 2 diabetes mellitus without complications
CPT/HCPCS: 70450; 72125; 73030; 80306; 81001; 99284

== ENCOUNTER 2023-02-14 12:37 | Outpatient (CLI) | payer MEDICAID, SELFPAY ==
[2023-02-14 12:51] VITALS: BMI 38.2
--- NOTE | 2023-02-14 13:10 | ECG_ITS ---
[facility] Test Date: 2023-02-14 Pat Name: Uziel Chaparro Department: Room: Gender: Male Network Technical Analyst: : 1980 Requested By: Drake Holdenr B Order Number: [id number] Alex MD: Jasmin Riggs M.D. Interpretive Statements NAME OF STUDY: TREADMILL STRESS TEST INDICATION: Shortness of breath on exertion PROCEDURE: At the baseline, the patient's blood pressure was 138/100 with a heart rate of 75. The baseline electrocardiogram showed normal sinus rhythm with normal ST-Ts.. The patient exercised for 6 minutes and 54 seconds on a standard Jr protocol. Patient attained a maximum heart rate of 163 beats per minute(91% of the maximum predicted heart rate) with a blood pressure at the peak exercise of 159/83 mm Hg. The EKG at the peak exercise revealed no significant changes. Patient did not have any chest pain or any significant cardiac arrhythmias with the exercise During the recovery phase, there were no new changes. Blood pressure at the end of the recovery phase was 127/89 mm Hg with a heart rate of 104 per minute. CONCLUSION: 1. Normal EKG response to treadmill exercise 2. No exercise-induced chest pain or cardiac arrhythmia 3. Fair exercise tolerance, attained a maximum of 10.2 METs Electronically Signed On 02-15-2023 11:37:48 DECONTAMINATION TECHNICIAN by Jasmin Riggs M.D. [email or web address]
[2023-02-14 14:42] VITALS: BP 156/98; PULSE 82
== END 2023-02-14 12:38 | disposition home or self-care (01) ==
PROVIDERS: PCP Nurse Practitioner Family; Visit Provider Internal Medicine Pulmonary Disease
DX: R06.02 Shortness of breath (principal)
CPT/HCPCS: 93017

== ENCOUNTER 2023-03-05 09:13 | Outpatient (CLI) | payer MEDICAID, SELFPAY ==
--- NOTE | 2023-03-05 09:30 | USCV_ITS ---
Uziel Chaparro Age: 42 Gender: M : 1980 Exam Date: 03/05/2023 09:40 Ordering Phys: Drake Younger MD Technologist: Zahraa Cook Exam Location: [facility] – [place]_ Indication: sob, sleep apnea, BP: 136 / 86 HR: 75 Rhythm: Sinus Technical Quality: Adequate MEASUREMENTS (Male / Female) Normal Values 2D ECHO LV Diastolic Diameter PLAX 5.1 cm 4.2 - 5.9 / 3.9 - 5.3 cm LV Systolic Diameter PLAX 4.1 cm IVS Diastolic Thickness 1.5 cm 0.6 - 1.0 / 0.6 - 0.9 cm IVS Systolic Thickness 1.8 cm LVPW Diastolic Thickness 1.3 cm 0.6 - 1.0 / 0.6 - 0.9 cm LVPW Systolic Thickness 1.8 cm LVOT Diameter 2.2 cm LV Ejection Fraction 2D Teich 21.5 % LV Ejection Fraction MOD 2C 53.7 % LV Ejection Fraction 2C AL 54.4 % LA Diameter 3.5 cm LA Width 4.5 cm LA Height 3.2 cm RA Width 4.1 cm RA Height 5.1 cm Aorta at Sinotubular Diameter 3.4 cm IVC Diameter 2.1 cm M-MODE Aortic Annulus Diameter 3.3 cm LA Ao Ratio MM 1.3 MV E Point Septal Separation 1.8 cm DOPPLER AV Peak Velocity 123.0 cm/s LVOT Peak Velocity 124.0 cm/s AV Area Cont Eq vti 3.4 cm squared AV Area Cont Eq pk 3.7 cm squared MV Peak Velocity 82.0 cm/s MV Area PHT 3.0 cm squared Mitral E to A Ratio 1.0 MV E' Velocity 39.5 cm/s Mitral E to MV E' Ratio 7.5 Mitral E to LV E' Lateral Ratio 6.1 Mitral E to LV E' Septal Ratio 9.9 TR Peak Velocity 102.0 cm/s TR Peak Gradient 4.2 mmHg Right Atrial Pressure 5.0 mmHg Pulmonary Artery Systolic Pressu 9.2 mmHg PV Peak Velocity 92.0 cm/s RV Acceleration Time 0.1 s RV Ejection Time 0.3 s RV AcT/ET 0.4 FINDINGS Left Ventricle Left ventricle is normal in size. LV systolic function is normal with EF of 50 to 55%. No regional wall motion abnormalities are seen. Right Ventricle Normal in size and function Right Atrium Normal in size Left Atrium Normal in size Mitral Valve Structurally normal mitral valve. Trace mitral regurgitation Aortic Valve Structurally normal aortic valve. No significant stenosis or regurgitation. Tricuspid Valve Trace tricuspid regurgitation. Insufficient TR jet to calculate RVSP. Pulmonic Valve Not well-visualized Pericardium Normal Aorta Normal in size IVC Appears to be normal CONCLUSIONS LV systolic function is normal with EF of 50 to 55%. Trace mitral regurgitation Trace tricuspid regurgitation Comapared to prior echocardiogram from 2020, no significant changes are seen Ej Keanrey MD (Electronically Signed) Final Date: 09 March 2023 14:59 S
== END 2023-03-05 09:14 | disposition home or self-care (01) ==
LOC: RAD 09:14
PROVIDERS: PCP Nurse Practitioner Family; Visit Provider Internal Medicine Pulmonary Disease
DX: R06.02 Shortness of breath (principal); G47.33 Obstructive sleep apnea (adult) (pediatric)
CPT/HCPCS: 93306; 94010; 94618; 94726; 94729

== ENCOUNTER 2023-04-25 10:30 | Emergency (ER) | payer MEDICAID, SELFPAY ==
[2023-04-25 10:35] VITALS: BP 144/84; PULSE 81; RESP 16; TEMP 36.9; O2SAT 95; BMI 37.9
--- NOTE | 2023-04-25 11:34 | USCV_ITS ---
Uziel Chaparro Age: 42 Gender: M : 1980 Exam Date: 04/25/2023 11:39 Ordering Phys: Jamar Turner DO Technologist: ROSY [place] [facility] [place]: LE Swelling. Hx of DVT HISTORY: Lower extremity swelling. Patient has history of. DVT. PROCEDURES: Venous duplex imaging was performed in only the left lower extremity. The following venous structures were evaluated: common femoral vein, profunda vein, proximal portion of the greater saphenous vein, superficial femoral vein, and the popliteal vein. In addition, the posterior tibial and peroneal trunk were evaluated. Serial compression, augmentation maneuvers, and spectral Doppler flow evaluation were performed. FINDINGS: No evidence of DVT seen in any vessel visualized at this time. CONCLUSIONS No evidence of left lower extremity DVT. Richard Pascual MD (Electronically Signed) Final Date: 25 April 2023 15:49 S
--- NOTE | 2023-04-25 12:54 | W.ED.EXTPRO ---
HPI - Extremity Problem General: Chief complaint: Extremity Problem,Nontraumatic Stated complaint: left leg pain and swelling Time Seen by Provider: 04/25/23 12:52 History of Present Illness: 42-year-old male patient comes in today for concerns of increased swelling and tenderness to the Of the left lower leg. Patient appears nontoxic. Patient does have a history of DVT in the left lower leg. Patient presently is taking apixaban 5 mg twice a day. Patient reports no chest pain or shortness of breath. Patient does note some numbness in the left fingers. Patient denies any back or neck pain. Review of Systems General: Reports: 10 or more systems reviewed and unremarkable except in HPI and below Musc: Reports: extremity swelling PFSH ED PFSH: Medical History Anxiety and depression Obstructive sleep apnea Hyperlipidemia Type 2 diabetes mellitus Ulcerative colitis Recurrent deep vein thrombosis (DVT) Hypertension Nicotine addiction Morbid obesity -BMI-41 kg/m2 Pulmonary embolism Surgical History History of surgery Excision of mass Hx of colonoscopy with polypectomy 2021 History of angioplasty pulmonary artery thrombectomy x 1 and left lower extremity venous thrombolysis x 2 H/O lymph node excision Right inguinal lymph node biopsy, determined to be cat scratch disease Family History Father CAD (coronary artery disease) Diabetes Hypertension Stroke Mother Cancer Diabetes Other Clotting disorder Heart disease Hyperlipidemia Denies family history of Dementia Psychiatric illness Chronic kidney disease (CKD) Suicide Anesthesia complication Bleeding disorder Lung disease Social History Smoking and tobacco/nicotine status: current every day tobacco/nicotine user (0.5 ppd) cigarettes Packs smoked per day: 1 Years cigarettes smoked: 24 [ Other cigarette details: Started at age 18] Alcohol intake: former Substance/Drug Use: never Lives independently: Yes Household members: spouse Marital status: Current occupational status: employed 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 Do you think of yourself as: Straight/Heterosexual Current gender identity: Male Physical Exam Const: COMMON NORMALS: alert HENMT: COMMON NORMALS: normocephalic HEAD & SCALP: normocephalic Neck/C-Spine: COMMON NORMALS: full ROM Resp: COMMON NORMALS: normal respiratory effort and clear to auscultation bilaterally AUSCULTATION: clear to auscultation bilaterally Cardio: COMMON NORMALS: regular rate and regular rhythm RATE: regular rate RHYTHM: regular rhythm GI: COMMON NORMALS: Soft to palpation PALPATION: Yes Soft to palpation Back/Pelvis: COMMON NORMALS: thoracic and lumbar spine normal to inspection Extremity: COMMON NORMALS: full ROM NARRATIVE EXTREMITY EXAM: Mild edema to the left lower leg. Nonpitting. Neuro: SENSORIUM/ORIENTATION: Yes alert Skin: COMMON NORMALS: turgor normal GENERAL SKIN EXAM: turgor normal Course Vital Signs: Vital signs: Vital Signs Temperature 98.4 F 04/25/23 10:35 Pulse Rate 65 04/25/23 12:55 Respiratory Rate 15 04/25/23 12:55 Blood Pressure 126/78 04/25/23 12:55 Pulse Oximetry 94 04/25/23 12:55 Oxygen Delivery Me thod Room Air 04/25/23 12:55 MDM - Extremity (Nontraumatic) Medical Decision Making 42-year-old male patient comes in today for pain and swelling to the left lower leg. On exam patient appears nontoxic. Patient appears in no acute distress. Distal pulses are intact. Skin is warm and dry. Vital signs are normal. Differential diagnosis includes DVT, peripheral edema, dependent edema, cellulitis. Ultrasound of the left lower extremity indicated no DVT. Reviewed exam with patient recommended compression hose to the leg to help support and avoid swelling. Recommend follow-up with primary care for further instructions. Return to ED for new concerns. Patient stated understanding, patient was discharged in stable condition. All radiology interpretation(s) finalized by discharge Discharge Plan Discharge Patient Disposition: Home Clinical Impression: Dependent edema Condition: Stable Prescriptions: No Action atorvastatin [Lipitor] 20 mg tablet 20 mg PO QAM Eliquis 5 mg tablet 5 mg PO BID Hold Instructions: Resume on 06/17/22. (DME) comp.stocking,thigh,long,large Misc See Rx Instructions .ROUTE .MEDSUPPLY Qty: 2 0RF Rx Instructions: As directed Januvia 25 mg tablet 50 mg PO QAM aspirin 81 mg tablet,delayed release (DR/EC) 81 mg PO QAM Pentasa 250 mg capsule, extended release 1,000 mg PO QID albuterol sulfate [ProAir HFA] 90 mcg/actuation HFA aerosol inhaler 2 puff INHALATION Q4H PRN (Reason: Shortness Of Breath) Qty: 6.7 0RF varenicline [Chantix Starting Month Box] 0.5 mg (11)- 1 mg (42) tablets,dose pack See Rx Instructions PO PER PKG DIR Qty: 53 0RF Rx Instructions: PO PER PKG DIR budesonide-formoterol [Symbicort] 80-4.5 mcg/actuation HFA aerosol inhaler 2 puff inhalation BID Qty: 10.2 6RF prednisone 20 mg tablet 60 mg PO DAILY 5 Days Qty: 15 0RF lisinopril 20 mg Tablet 20 mg PO QAM triamcinolone acetonide 0.025 % ointment 1 applic TOPICAL BID PRN (Reason: Rash) escitalopram oxalate [Lexapro] 10 mg tablet 10 mg PO 1XD DOK 100 mg capsule 100 mg PO BID Qty: 14 0RF Naprosyn 500 mg tablet 500 mg PO BID PRN (Reason: pain) Qty: 20 0RF Men's One Daily Tablet 1 tab PO DAILY Discharge Orders: Discharge ED (Routine); Ordered 04/25/23 Ordered By: Gilberto Emerson Referrals: Karen Badillo NP [Primary Care Provider] - Discharge Diet: Usual diet Discharge Activity: Increase activity as tolerated Patient Instructions: Edema (ED) Activity Restrictions/Additional Instructions: Elevate leg is much as possible. Wear compression sock to help control edema especially if standing for long periods of time. Continue with routine medications as directed. Follow-up with primary care for further instructions. 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
[2023-04-25 12:55] VITALS: BP 126/78; PULSE 65; RESP 15; O2SAT 94
== END 2023-04-25 14:17 | disposition home or self-care (01) ==
PROVIDERS: Emergency Provider Nurse Practitioner Family; PCP Nurse Practitioner Family
DX: R60.9 Edema, unspecified (principal); Z79.01 Long term (current) use of anticoagulants; Z79.82 Long term (current) use of aspirin; F17.210 Nicotine dependence, cigarettes, uncomplicated; E78.5 Hyperlipidemia, unspecified; E11.9 Type 2 diabetes mellitus without complications; I10 Essential (primary) hypertension
CPT/HCPCS: 93971; 99284

== ENCOUNTER 2023-05-02 16:48 | Emergency (ER) | payer MEDICAID, SELFPAY ==
--- NOTE | 2023-05-02 16:52 | XRR_ITS ---
PROCEDURE INFORMATION: Exam: XR Right Knee Exam date and time: 05/02/2023 5:24 PM Age: 42 years old Clinical indication: Pain; Patient HX: Swelling in right knee; Additional info: Injury TECHNIQUE: Imaging protocol: Radiologic exam of the right knee. Views: 3 views. COMPARISON: [place] [id number] 12/16/2019 2:55 PM FINDINGS: Bones/joints: No fracture or other acute abnormality. No significant arthritic findings. Questionable suprapatellar effusion. Soft tissues: Unremarkable. XR/XR knee RT 3V* [id number] IMPRESSION: No acute abnormality. Questionable small suprapatellar effusion
[2023-05-02 17:03] VITALS: BP 145/83; PULSE 93; RESP 16; TEMP 36.6; O2SAT 97
--- NOTE | 2023-05-02 17:29 | W.ED.EXTPRO ---
HPI - Extremity Problem General: Chief complaint: Extremity Problem,Nontraumatic Stated complaint: R knee pain Time Seen by Provider: 05/02/23 17:11 Source: patient Mode of arrival: ambulatory Limitations: no limitations History of Present Illness: 42-year-old male states he has had right knee pain for months. States he does not remember any specific injury states it is worse with ambulation denies any fever states is improved with rest. Has not seen anyone about the knee. Denies any swelling in his lower leg. Associated symptoms: Deny chest pain, fever(s) or rash Review of Systems Const: Denies: fever(s), chills, body aches or change in appetite ENMT: Denies: throat pain or dental pain Card: Denies: chest pain Resp: Denies: dyspnea GI: Denies: abdominal pain, nausea, vomiting or diarrhea Musc: Reports: extremity pain; Denies: neck pain or back pain Skin/Breast: Denies: rash Neuro: Denies: headache(s) PFSH ED PFSH: Medical History Anxiety and depression Obstructive sleep apnea Hyperlipidemia Type 2 diabetes mellitus Ulcerative colitis Recurrent deep vein thrombosis (DVT) Hypertension Nicotine addiction Morbid obesity -BMI-41 kg/m2 Pulmonary embolism Surgical History History of surgery Excision of mass Hx of colonoscopy with polypectomy 2021 History of angioplasty pulmonary artery thrombectomy x 1 and left lower extremity venous thrombolysis x 2 H/O lymph node excision Right inguinal lymph node biopsy, determined to be cat scratch disease Family History Father CAD (coronary artery disease) Diabetes Hypertension Stroke Mother Cancer Diabetes Other Clotting disorder Heart disease Hyperlipidemia Denies family history of Dementia Psychiatric illness Chronic kidney disease (CKD) Suicide Anesthesia complication Bleeding disorder Lung disease Social History Smoking and tobacco/nicotine status: current every day tobacco/nicotine user (0.5 ppd) cigarettes Packs smoked per day: 1 Years cigarettes smoked: 24 [ Other cigarette details: Started at age 18] Alcohol intake: former Substance/Drug Use: never Lives independently: Yes Household members: spouse Marital status: Current occupational status: employed 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 Do you think of yourself as: Straight/Heterosexual Current gender identity: Male Physical Exam Const: COMMON NORMALS: no acute distress, patient oriented x3 and healthy appearing HENMT: COMMON NORMALS: normocephalic and atraumatic HEAD & SCALP: normocephalic and atraumatic Neck/C-Spine: COMMON NORMALS: full ROM and supple Chest: COMMONS NORMALS: normal inspection of the chest Resp: COMMON NORMALS: normal respiratory effort Extremity: NARRATIVE EXTREMITY EXAM: Some slight swelling right knee no tenderness no pain with range of motion no warmth to touch no signs of joint Neuro: COMMON NORMALS: patient oriented x3, moves all extremities and no focal motor deficits Psych: COMMON NORMALS: mental status grossly normal, Normal thought process present and cooperative THOUGHT PROCESS: Normal thought process present Skin: COMMON NORMALS: no rashes or lesions noted and no wounds GENERAL SKIN EXAM: no rashes or lesions noted Course Vital Signs: Vital signs: Vital Signs Temperature 97.9 F 05/02/23 17:03 Pulse Rate 93 05/02/23 17:03 Respiratory Rate 16 05/02/23 17:03 Blood Pressure 145/83 05/02/23 17:03 Pulse Oximetry 97 05/02/23 17:03 Oxygen Delivery Me thod Room Air 05/02/23 17:03 MDM - Extremity (Nontraumatic) Medical Decision Making Patient presents with knee pain has been going on for months no signs of septic joint could have a meniscal or ligamentous injury x-ray shows no fracture we will get him follow-up with orthopedics he still take anti-inflammatories return if worsening. Medical Records I reviewed the patient's medical records. XR interpretation done by ED provider, pending radiology final review ED provider radiology interpretation(s): xr knee no acute abnormality Discharge Plan Discharge Patient Disposition: Home Clinical Impression: Pain in right knee Condition: Stable Prescriptions: New Naprosyn 500 mg tablet 500 mg PO BID PRN (Reason: pain) Qty: 20 0RF No Action atorvastatin [Lipitor] 20 mg tablet 20 mg PO QAM Eliquis 5 mg tablet 5 mg PO BID Hold Instructions: Resume on 06/17/22. (DME) comp.stocking,thigh,long,large Misc See Rx Instructions .ROUTE .MEDSUPPLY Qty: 2 0RF Rx Instructions: As directed Januvia 25 mg tablet 50 mg PO QAM aspirin 81 mg tablet,delayed release (DR/EC) 81 mg PO QAM Pentasa 250 mg capsule, extended release 1,000 mg PO QID albuterol sulfate [ProAir HFA] 90 mcg/actuation HFA aerosol inhaler 2 puff INHALATION Q4H PRN (Reason: Shortness Of Breath) Qty: 6.7 0RF varenicline [Chantix Starting Month Box] 0.5 mg (11)- 1 mg (42) tablets,dose pack See Rx Instructions PO PER PKG DIR Qty: 53 0RF Rx Instructions: PO PER PKG DIR budesonide-formoterol [Symbicort] 80-4.5 mcg/actuation HFA aerosol inhaler 2 puff inhalation BID Qty: 10.2 6RF prednisone 20 mg tablet 60 mg PO DAILY 5 Days Qty: 15 0RF lisinopril 20 mg Tablet 20 mg PO QAM triamcinolone acetonide 0.025 % ointment 1 applic TOPICAL BID PRN (Reason: Rash) escitalopram oxalate [Lexapro] 10 mg tablet 10 mg PO 1XD DOK 100 mg capsule 100 mg PO BID Qty: 14 0RF Naprosyn 500 mg tablet 500 mg PO BID PRN (Reason: pain) Qty: 20 0RF Men's One Daily Tablet 1 tab PO DAILY Discharge Orders: Discharge ED (Routine); Ordered 05/02/23 Ordered By: Raya Mcnair Referrals: Karen Badillo NP [Primary Care Provider] - Danis Acosta DO [Physician] - 1-3 days Discharge Diet: Advance as tolerated Discharge Activity: Resume usual activity Patient Instructions: Knee Pain (ED) Coding 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
[2023-05-02] MEDS: HYDROcodone-acetaminophen 5-325 mg Tablet 1 TAB PO (17:51)
--- NOTE | 2023-05-03 03:58 | DCPLANNER ---
Message sent to Ortho for follow up with Karla- RT knee pain
== END 2023-05-02 17:55 | disposition home or self-care (01) ==
PROVIDERS: Emergency Provider Emergency Medicine; PCP Nurse Practitioner Family
DX: M25.561 Pain in right knee (principal); Z79.01 Long term (current) use of anticoagulants; Z79.82 Long term (current) use of aspirin; F17.210 Nicotine dependence, cigarettes, uncomplicated; E78.5 Hyperlipidemia, unspecified; E11.9 Type 2 diabetes mellitus without complications; I10 Essential (primary) hypertension
CPT/HCPCS: 73562; 99283

== ENCOUNTER 2023-10-01 18:20 | Emergency (ER) | payer BC, SELFPAY ==
[2023-10-01] VITALS (7 sets, daily range): BP systolic 106–150; BP diastolic 66–95; PULSE 65–77; RESP 16–20; TEMP 36.6; O2SAT 92–98
--- NOTE | 2023-10-01 18:40 | W.ED.WEAKNES ---
HPI - Weakness General: Chief complaint: Weakness Stated complaint: believes possible heat exhaustion n/v weak Time Seen by Provider: 10/01/23 18:23 Source: patient Mode of arrival: ambulatory Limitations: no limitations History of Present Illness: Patient is a 43-year-old male history of diabetes who presents the emergency department complaining of nausea and vomiting onset today. Patient states he believes he has heat exhaustion from working outside all day. States he has drank approximately 3 gallons of water, however after leaving work began having some visual changes, weakness, and generally feeling unwell. States he has had 4 episodes of vomiting. States his sugars have been running high from the vomiting. Denies any chest pain, shortness of breath, fevers, bowel changes, urinary symptoms, or other symptoms at this time. MD Complaint: generalized weakness Onset (ago): hour(s) Duration: constant Location: generalized Relieving factors: none Exacerbating factors: exertion Context: other (Working outside in the heat all day) Associated symptoms: Reports nausea and vomiting; Denies chest pain, chills, dysuria, fever(s) or headache(s) Review of Systems General: Reports: 10 or more systems reviewed and unremarkable except in HPI and below Const: Reports: fatigue and malaise; Denies: fever(s) or chills Eyes: Reports: change in vision ENMT: Denies: throat pain, ear or mastoid pain or nasal discharge Card: Denies: chest pain, palpitations, swelling of feet/ankles or lightheadedness Resp: Denies: dyspnea, productive cough or wheezing GI: Reports: nausea and vomiting; Denies: abdominal pain, diarrhea or constipation : Denies: flank pain, difficulty urinating, dysuria or urinary frequency Musc: Reports: muscle weakness; Denies: neck pain, back pain or joint pain Skin/Breast: Denies: rash Neuro: Denies: headache(s) or numbness in extremities PFSH ED PFSH: Medical History Bryanna sign present in right knee Recurrent right knee instability Anxiety and depression Obstructive sleep apnea Hyperlipidemia Type 2 diabetes mellitus Ulcerative colitis Recurrent deep vein thrombosis (DVT) Hypertension Nicotine addiction Morbid obesity -BMI-41 kg/m2 Pulmonary embolism Surgical History History of surgery Excision of mass Hx of colonoscopy with polypectomy 2021 History of angioplasty pulmonary artery thrombectomy x 1 and left lower extremity venous thrombolysis x 2 H/O lymph node excision Right inguinal lymph node biopsy, determined to be cat scratch disease Family History Father CAD (coronary artery disease) Diabetes Hypertension Stroke Mother Cancer Diabetes Other Clotting disorder Heart disease Hyperlipidemia Denies family history of Dementia Psychiatric illness Chronic kidney disease (CKD) Suicide Anesthesia complication Bleeding disorder Lung disease Social History Smoking and tobacco/nicotine status: tobacco/nicotine user, details unknown cigarettes Packs smoked per day: 1 Years cigarettes smoked: 24 [ Other cigarette details: Started at age 18] Alcohol intake: former Substance/Drug Use: never Lives independently: Yes Household members: spouse Marital status: Current occupational status: employed 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 Do you think of yourself as: Straight/Heterosexual Current gender identity: Male Physical Exam Const: COMMON NORMALS: no acute distress, patient oriented x3 and no limitations GENERAL APPEARANCE: cooperative, comfortable and well developed ORIENTATION/CONSCIOUSNESS: Yes awake, Yes oriented to person, Yes oriented to place and Yes oriented to time HENMT: COMMON NORMALS: normocephalic, atraumatic, hearing grossly normal bilaterally and moist oral mucous membranes HEAD & SCALP: normocephalic and atraumatic Eye: COMMON NORMALS: Equal, round and reactive pupils present, EOMs intact bilaterally and conjunctivae normal CONJUNCTIVA: Yes conjunctivae normal PUPIL: Yes Equal, round and reactive pupils present Neck/C-Spine: COMMON NORMALS: full ROM, supple and no JVD Resp: COMMON NORMALS: normal respiratory effort, No retractions, No use of accessory muscles and clear to auscultation bilaterally AUSCULTATION: clear to auscultation bilaterally Cardio: COMMON NORMALS: no JVD, regular rate, regular rhythm, No clicks present (Cardio), No murmurs present (Cardio) and No rub (Cardio) RATE: regular rate RHYTHM: regular rhythm GI: COMMON NORMALS: Normal to inspection, nondistended, normoactive bowel sounds present, Soft to palpation and non-tender AUSCULTATION: Yes normoactive bowel sounds PALPATION: Yes Soft to palpation RECTAL EXAM: Yes deferred Extremity: COMMON NORMALS: full ROM and capillary refill normal NARRATIVE EXTREMITY EXAM: Chronic venous stasis changes bilateral lower extremities Neuro: COMMON NORMALS: patient oriented x3, CN's II-XII intact bilaterally, moves all extremities, no focal motor deficits and no sensory deficits noted SENSORIUM/ORIENTATION: Yes oriented to person, Yes oriented to place and Yes oriented to time Psych: COMMON NORMALS: mental status grossly normal and Normal thought process present THOUGHT PROCESS: Normal thought process present Skin: COMMON NORMALS: no rashes or lesions noted GENERAL SKIN EXAM: no rashes or lesions noted Course Vital Signs: Vital signs: Vital Signs Temperature 97.9 F 10/01/23 18:25 Pulse Rate 65 10/01/23 21:30 Respiratory Rate 16 10/01/23 21:30 Blood Pressure 120/79 10/01/23 21:30 Pulse Oximetry 92 10/01/23 21:30 Oxygen Delivery Me thod Room Air 10/01/23 21:30 MDM - Weakness Medical Decision Making Patient seen for acute onset of nausea and vomiting associated with weakness and fatigue after working outside in the heat. Arrives also stating he was having some visual changes. Vitals overall were unremarkable and physical examination did not reveal any acute findings as patient appeared nontoxic and in no acute distress. His lab work was all unremarkable including a negative CBC and urinalysis. His creatinine was found to be mildly elevated at 1.6, this is rechecked and found to decrease after fluids. He is given 2 L of fluid as well as Zofran, and upon recheck states that he feels much better. I informed the patient to follow-up with his primary care later this week or early next week for redraw of his labs to make sure his creatinine continues to trend downward, to which she agrees. Strict return precautions given, and he is encouraged to continue monitoring his blood sugars closely. Care of patient discussed with Dr. Turner who agrees with disposition of the patient at this time. Lab Data 10/01/23 18:49 10/01/23 21:12 Laboratory Results WBC 13.75 10^3/uL (3.29-11.43) H 10/01/23 18:49 RBC 5.40 10^6/uL (3.85-5.65) 10/01/23 18:49 Hgb 15.20 g/dL (11.27-16.99) 10/01/23 18:49 Hct 45.3 % (37-53) 10/01/23 18:49 MCV 83.9 fl (82-101) 10/01/23 18:49 MCH 28.1 pg (27-33) 10/01/23 18:49 MCHC 33.6 g/dL (30-55) 10/01/23 18:49 RDW 13.3 % (12.1-15.1) 10/01/23 18:49 Plt Count 275 10^3/cmm (157-399) 10/01/23 18:49 MPV 9.6 fL (7.4-10.4) 10/01/23 18:49 Neut % (Auto) 79.7 % 10/01/23 18:49 Lymph % (Auto) 14.1 % 10/01/23 18:49 [place] % (Auto) 5.2 % 10/01/23 18:49 Eos % (Auto) 0.2 % 10/01/23 18:49 Baso % (Auto) 0.4 % 10/01/23 18:49 Neut # (Auto) 10.94 10^3/uL (1.8-7.7) H 10/01/23 18:49 Lymph # (Auto) 1.9 10^3/uL (0.8-4.8) 10/01/23 18:49 [place] # (Auto) 0.7 10^3/uL (0.2-0.9) 10/01/23 18:49 Eos # (Auto) 0.0 10^3/uL (0.0-0.8) 10/01/23 18:49 Baso # (Auto) 0.1 10^3/uL (0.0-0.1) 10/01/23 18:49 Nucleated RBC % (auto) 0 % 10/01/23 18:49 Nucleated RBCs # 0.0 /100WBC 10/01/23 18:49 Sodium 137 mmol/L (136-145) 10/01/23 21:12 Potassium 5.4 mmol/L (3.5-5.1) H 10/01/23 21:12 Chloride 99 mmol/L (98-107) 10/01/23 21:12 Carbon Dioxide 29 mmol/L (22-29) 10/01/23 21:12 Anion Gap 14.4 (5-19) 10/01/23 21:12 BUN 24 mg/dL (6-20) H 10/01/23 21:12 Creatinine 1.4 mg/dL (0.7-1.2) H 10/01/23 21:12 GFR Calculation 55.3 mL/min (90-130) L 10/01/23 21:12 Glucose 182 mg/dL (65-115) H 10/01/23 21:12 Calculated Osmolality 293 mOsm/kg (285-295) 10/01/23 21:12 Calcium 9.9 mg/dL (8.5-10.5) 10/01/23 21:12 Total Bilirubin 0.8 mg/dL (0.15-1.2) 10/01/23 18:49 AST 16 U/L (0-40) 10/01/23 18:49 ALT 24 U/L (0-41) 10/01/23 18:49 Alkaline Phosphatase 79 U/L (40-130) 10/01/23 18:49 Creatine Kinase 234 U/L (39-308) 10/01/23 18:49 Total Protein 8.1 g/dL (6.6-8.7) 10/01/23 18:49 Albumin 4.8 g/dL (3.5-5.2) 10/01/23 18:49 Globulin 3.3 g/dL (1.3-4.6) 10/01/23 18:49 Urine Color Dark yellow (Yellow) A 10/01/23 19:23 Urine Appearance Cloudy (CLEAR) A 10/01/23 19:23 Urine pH 5.5 (5-7) 10/01/23 19:23 Ur Specific [place] 1.021 (1.005-1.030) 10/01/23 19:23 Urine Protein 1+ (Negative) A 10/01/23 19:23 Urine Glucose (UA) Trace (Normal) H 10/01/23 19:23 Urine Ketones Trace (Negative) 10/01/23 19:23 Urine Blood Negative (Negative) 10/01/23 19:23 Urine Nitrate Negative (Negative) 10/01/23 19:23 Urine Bilirubin Negative (Negative) 10/01/23 19:23 Urine Urobilinogen 1.0 mg/dL (Negative) 10/01/23 19:23 Ur Leukocyte Esterase Negative (Negative) 10/01/23 19:23 Urine RBC 0-2 /hpf (0-2) 10/01/23 19:23 Urine WBC 0-5 /hpf (0-5) 10/01/23 19:23 Ur Squamous Epith Cells 0-5 /hpf (0-5) 10/01/23 19:23 Calcium Oxalate Crystal 5-10 /hpf H 10/01/23 19:23 Amorphous Sediment Not Reportable 10/01/23 19:23 Urine Bacteria None seen /hpf (NONE) 10/01/23 19:23 Hyaline Casts 5-10 /lpf H 10/01/23 19:23 Fine Granular Casts 5-10 /lpf H 10/01/23 19:23 Coarse Granular Casts 0-4 /lpf H 10/01/23 19:23 No radiology studies performed this visit Discharge Plan Discharge Patient Disposition: Home Clinical Impression: Heat exhaustion Qualifiers: Encounter type: initial encounter Qualified Code(s): T67.5XXA - Heat exhaustion, unspecified, initial encounter Condition: Stable Prescriptions: New ondansetron HCl 4 mg tablet 4 mg PO Q8H Qty: 30 0RF No Action atorvastatin [Lipitor] 20 mg tablet 20 mg PO QAM Eliquis 5 mg tablet 5 mg PO BID Hold Instructions: Resume on 06/17/22. (DME) comp.stocking,thigh,long,large Misc See Rx Instructions .ROUTE .MEDSUPPLY Qty: 2 0RF Rx Instructions: As directed Januvia 25 mg tablet 50 mg PO QAM aspirin 81 mg tablet,delayed release (DR/EC) 81 mg PO QAM Pentasa 250 mg capsule, extended release 1,000 mg PO QID albuterol sulfate [ProAir HFA] 90 mcg/actuation HFA aerosol inhaler 2 puff INHALATION Q4H PRN (Reason: Shortness Of Breath) Qty: 6.7 0RF celecoxib [Celebrex] 100 mg capsule 100 mg PO BID Qty: 60 2RF gabapentin 300 mg capsule 300 mg PO DAILY Qty: 15 0RF varenicline [Chantix Starting Month Box] 0.5 mg (11)- 1 mg (42) tablets,dose pack See Rx Instructions PO PER PKG DIR Qty: 53 0RF Rx Instructions: PO PER PKG DIR budesonide-formoterol [Symbicort] 80-4.5 mcg/actuation HFA aerosol inhaler 2 puff inhalation BID Qty: 30.6 3RF lisinopril 20 mg Tablet 20 mg PO QAM triamcinolone acetonide 0.025 % ointment 1 applic TOPICAL BID PRN (Reason: Rash) escitalopram oxalate [Lexapro] 10 mg tablet 10 mg PO 1XD DOK 100 mg capsule 100 mg PO BID Qty: 14 0RF Men's One Daily Tablet 1 tab PO DAILY Discharge Orders: Discharge ED (Routine); Ordered 10/01/23 Ordered By: Umair Hensley Referrals: Karen Badillo NP [Primary Care Provider] - Discharge Diet: As Directed Discharge Activity: Increase activity as tolerated Patient Instructions: Heat Exhaustion (ED) Activity Restrictions/Additional Instructions: Plenty of fluids. Please follow-up with primary care later this week or early next week to repeat your labs. Continue monitoring your blood sugars closely and take medications as prescribed. Please return with any new or worsening symptoms. Coding Level of Care Code ED Community Worker for Jack Reeves
[2023-10-01 19:01] LABS: Basophils # 0.1 10^3/uL (0.0-0.1); Basophils % 0.4 %; Eosinophils % 0.2 %; Hematocrit 45.3 % (37-53); Lymphocytes # 1.9 10^3/uL (0.8-4.8); Lymphocytes % 14.1 %; Mean Corpuscular HGB Conc 33.6 g/dL (30-55); Mean Corpuscular Hemoglobin 28.1 pg (27-33); Mean Corpuscular Volume 83.9 fl (82-101); Mean Platelet Volume 9.6 fL (7.4-10.4); Monocytes # 0.7 10^3/uL (0.2-0.9); Monocytes % 5.2 %; Neutrophils # 10.94 10^3/uL (1.8-7.7); Neutrophils % 79.7 %; Nucleated Red Blood Cells % 0 %; Platelet Count 275 10^3/cmm (157-399); Red Cell Distribution Width 13.3 % (12.1-15.1); White Blood Count 13.75 10^3/uL (3.29-11.43)
[2023-10-01] MEDS: sodium chloride 0.9% 1,000 ML 999 ML IV ×2 (19:03→19:50)
[2023-10-01] MEDS: ondansetron 2 mg/ML SDV 2 mL 4 MG IVP (19:05)
[2023-10-01 19:16] LABS: Alanine Aminotransferase 24 U/L (0-41); Albumin Level 4.8 g/dL (3.5-5.2); Alkaline Phosphatase 79 U/L (40-130); Anion Gap 20.7 (5-19); Aspartate Amino Transferase 16 U/L (0-40); Blood Urea Nitrogen 26 mg/dL (6-20); Calcium 10.6 mg/dL (8.5-10.5); Carbon Dioxide 25 mmol/L (22-29); Chloride 97 mmol/L (98-107); Creatine Phosphokinase 234 U/L (39-308); Creatinine Clr Calc Pharmacy 93.9014; Globulin 3.3 g/dL (1.3-4.6); Glomerular Filtration Rate 47.4 mL/min (90-130); Glucose 195 mg/dL (65-115); Osmolality Calculated 296 mOsm/kg (285-295); Potassium 4.7 mmol/L (3.5-5.1); Sodium 138 mmol/L (136-145); Total Bilirubin 0.8 mg/dL (0.15-1.2); Total Protein 8.1 g/dL (6.6-8.7)
[2023-10-01 19:26] LABS: Charge for UA Resulting for Rev
[2023-10-01 19:30] LABS: Bilirubin Urine Negative (Negative); Blood Urine Negative (Negative); Glucose Urine UA Trace (Normal); Ketones Urine Trace (Negative); Leukocyte Esterase Urine Negative (Negative); Nitrate Urine Negative (Negative); Protein Urine 1+ (Negative); Specific Gravity, Urine 1.021 (1.005-1.030); Urine Appearance Cloudy (CLEAR); Urine Color Dark Yellow (Yellow); pH Urine 5.5 (5-7)
[2023-10-01 19:32] LABS: Bacteria Urine None Seen /hpf; RBC Urine 0-2 /hpf (0-2); Squamous Epithelial Cell Urine 0-5 /hpf (0-5); WBC Urine 0-5 /hpf (0-5)
[2023-10-01 20:27] LABS: Coarse Granular Casts Urine 0-4 /lpf
[2023-10-01 21:45] LABS: Anion Gap 14.4 (5-19); Blood Urea Nitrogen 24 mg/dL (6-20); Calcium 9.9 mg/dL (8.5-10.5); Carbon Dioxide 29 mmol/L (22-29); Chloride 99 mmol/L (98-107); Creatinine Clr Calc Pharmacy 107.3159; Glomerular Filtration Rate 55.3 mL/min (90-130); Glucose 182 mg/dL (65-115); Osmolality Calculated 293 mOsm/kg (285-295); Potassium 5.4 mmol/L (3.5-5.1); Sodium 137 mmol/L (136-145)
== END 2023-10-01 22:40 | disposition home or self-care (01) ==
PROVIDERS: Emergency Provider Physician Assistant; PCP Nurse Practitioner Family
DX: T67.5XXA Heat exhaustion, unspecified, initial encounter (principal); X30.XXXA Exposure to excessive natural heat, initial encounter; Z79.82 Long term (current) use of aspirin; Z79.01 Long term (current) use of anticoagulants; F17.210 Nicotine dependence, cigarettes, uncomplicated; E78.5 Hyperlipidemia, unspecified; E11.9 Type 2 diabetes mellitus without complications; I10 Essential (primary) hypertension
CPT/HCPCS: 36415; 80048; 80053; 81003; 81015; 82550; 85025; 96374; 99284; J2405; J7030

== ENCOUNTER 2023-11-13 02:17 | Inpatient (IN) | payer BC, SELFPAY ==
[2023-11-13] VITALS (7 sets, daily range): BP systolic 133–177; BP diastolic 87–106; PULSE 67–89; RESP 16–18; TEMP 36.4–36.7; O2SAT 95–99; BMI 36.7
--- NOTE | 2023-11-13 02:57 | ECG_ITS ---
[facility] Test Date: 2023-11-13 Pat Name: Uziel Chaparro Department: Room: Gender: Male Customer Assistant: : 1980 Requested By: Letha Thompson Order Number: [id number] Alex MD: AMY LEOS Measurements Intervals [place] Rate: 63 P: 11 MD: 150 QRS: 9 QRSD: 117 T: 19 QT: 432 QTc: 444 Interpretive Statements SINUS RHYTHM MODERATE INTRAVENTRICULAR CONDUCTION DELAY [110+ ms QRS DURATION] Compared to ECG 06/28/2021 17:21:25 Intraventricular conduction delay now present Electronically Signed On 11-14-2023 11:55:09 CDT by AMY LEOS [id number]
[2023-11-13 03:02] LABS: Basophils # 0.1 10^3/uL (0.0-0.1); Basophils % 0.6 %; Eosinophils # 0.1 10^3/uL (0.0-0.8); Eosinophils % 0.8 %; Hematocrit 44.2 % (37-53); Lymphocytes # 2.9 10^3/uL (0.8-4.8); Lymphocytes % 31.9 %; Mean Corpuscular Hemoglobin 28.3 pg (27-33); Mean Corpuscular Volume 85.7 fl (82-101); Mean Platelet Volume 10.2 fL (7.4-10.4); Monocytes # 0.6 10^3/uL (0.2-0.9); Monocytes % 6.2 %; Neutrophils # 5.46 10^3/uL (1.8-7.7); Neutrophils % 60.3 %; Nucleated Red Blood Cells % 0 %; Platelet Count 241 10^3/cmm (157-399); Red Blood Count 5.16 10^6/uL (3.85-5.65); Red Cell Distribution Width 13.3 % (12.1-15.1); White Blood Count 9.04 10^3/uL (3.29-11.43)
--- NOTE | 2023-11-13 03:09 | W.ED.PSYCHS ---
HPI - Psych General: Chief Complaint: Psychiatric Symptoms Stated Complaint: MHE Time Seen by Provider: 11/13/23 02:57 History of Present Illness: 43-year-old man with history of depression BPPV, type 2 diabetes, hypertension and obesity who presents emergency room with depression and suicidal thoughts. He says he cannot afford his depression meds. No specific plan at this point. He says he wants help. Related Data Home Medications Medication Instructions Recorded Confirmed atorvastatin 20 mg tablet (Lipitor) 20 mg PO QAM 03/24/19 11/13/23 apixaban 5 mg tablet (Eliquis) 5 mg PO BID 10/08/19 11/13/23 lisinopril 20 mg tablet 20 mg PO QAM 03/30/21 11/13/23 multivitamin with minerals (Men's 1 tab PO DAILY 06/28/21 11/13/23 One Daily tablet) sitagliptin phosphate 25 mg tablet 100 mg PO QAM 10/01/22 11/13/23 (Januvia) Previous Rx's Medication Instructions Recorded celecoxib 100 mg capsule (Celebrex) 100 mg PO BID #60 caps 05/15/23 budesonide-formoterol HFA 80 2 puff inhalation BID #30.6 grams 07/16/23 mcg-4.5 mcg/actuation aerosol inhaler (Symbicort) Allergies Allergy/AdvReac Type Severity Reaction Status Date / Time rofecoxib [From Vioxx] Allergy Severe anaphalyxis Verified 11/13/23 02:28 nickel Allergy ADR-Itching Verified 11/13/23 02:28 Review of Systems Narrative: Constitutional symptoms: Negative except as documented in HPI. Skin symptoms: Negative except as documented in HPI. Eye symptoms: Negative except as documented in HPI. ENMT symptoms: Negative except as documented in HPI. Respiratory symptoms: Negative except as documented in HPI. Cardiovascular symptoms: Negative except as documented in HPI. Gastrointestinal symptoms: Negative except as documented in HPI. Genitourinary symptoms: Negative except as documented in HPI. Musculoskeletal symptoms: Negative except as documented in HPI. Neurologic symptoms: Negative except as documented in HPI. Psychiatric symptoms: Negative except as documented in HPI. Endocrine symptoms: Negative except as documented in HPI. PFSH ED PFSH: Medical History Bryanna sign present in right knee Recurrent right knee instability Anxiety and depression Obstructive sleep apnea Hyperlipidemia Type 2 diabetes mellitus Ulcerative colitis Recurrent deep vein thrombosis (DVT) Hypertension Nicotine addiction Morbid obesity -BMI-41 kg/m2 Pulmonary embolism Surgical History History of surgery Excision of mass Hx of colonoscopy with polypectomy 2021 History of angioplasty pulmonary artery thrombectomy x 1 and left lower extremity venous thrombolysis x 2 H/O lymph node excision Right inguinal lymph node biopsy, determined to be cat scratch disease Family History Father CAD (coronary artery disease) Diabetes Hypertension Stroke Mother Cancer Diabetes Other Clotting disorder Heart disease Hyperlipidemia Denies family history of Dementia Psychiatric illness Chronic kidney disease (CKD) Suicide Anesthesia complication Bleeding disorder Lung disease Social History Smoking and tobacco/nicotine status: tobacco/nicotine user, details unknown cigarettes Packs smoked per day: 1 Years cigarettes smoked: 24 [ Other cigarette details: Started at age 18] Alcohol intake: former Substance/Drug Use: never Lives independently: Yes Household members: spouse Marital status: Current occupational status: employed 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 no acute distress Skin: Warm, dry Head: Normocephalic, atraumatic. Neck: Supple, trachea midline. Eye: Extraocular movements are intact. Ears, nose, mouth and throat: Oral mucosa moist. Cardiovascular: Regular rate and rhythm, Normal peripheral perfusion. Respiratory: Lungs are clear to auscultation, respirations are non-labored, breath sounds are equal, Symmetrical chest wall expansion. Gastrointestinal: Soft, Nontender, Non distended, Normal bowel sounds. Musculoskeletal: Normal ROM, no deformity. Neurological: Alert and oriented to person, place, time, and situation, No focal neurological deficit observed. Psychiatric: Cooperative, depressed, expresses suicidal ideation. Course Vital Signs: Vital signs: Vital Signs Temperature 97.5 F L 11/13/23 04:23 Pulse Rate 70 11/13/23 04:23 Respiratory Rate 18 11/13/23 04:23 Blood Pressure 177/97 11/13/23 04:23 Pulse Oximetry 99 11/13/23 04:23 Oxygen Delivery Me thod Room Air 11/13/23 04:40 MDM - Psych Medical Decision Making Differential diagnosis: Patient with reported depression and suicidal ideation. concerns for infection, alcohol intoxication, cardiac issues or other medical problems prior to psychiatric admission. Workup: labwork, ekg ordered to evaluate the pathologies and to clear the patient medically prior to psychiatric admission EKG: Time 3:19 AM. Rate 63. Normal sinus rhythm, No ST-T changes, no ectopy, normal ND & QRS intervals, This was reviewed and interpreted by myself the ER physician at 3:22 AM Lab Review: Laboratory results were reviewed and interpreted by myself the emergency room physician. Lab review: - Medically cleared. - EKG shows no ischemic changes. - Blood alcohol level is negative, -Tylenol and salicylate levels are negative. - Drug screen is positive for marijuana - No signs of infection, urinalysis clear and white count is not elevated - No anemia. - BUN and creatinine are within normal limits. Consultation: I spoke with Dr. Correa. Agrees to admission. Assessment and plan: Depression Suicidal ideation -Admission to neuropsychiatric unit for continued evaluation and treatment. - All lab work was reviewed and interpreted personally by myself, the ER physician - Evaluation and treatment of this problem were appropriate in the emergency setting Lab Data 11/13/23 02:35 11/13/23 02:35 Laboratory Results WBC 9.04 10^3/uL (3.29-11.43) 11/13/23 02:35 RBC 5.16 10^6/uL (3.85-5.65) 11/13/23 02:35 Hgb 14.60 g/dL (11.27-16.99) 11/13/23 02:35 Hct 44.2 % (37-53) 11/13/23 02:35 MCV 85.7 fl (82-101) 11/13/23 02:35 MCH 28.3 pg (27-33) 11/13/23 02:35 MCHC 33.0 g/dL (30-55) 11/13/23 02:35 RDW 13.3 % (12.1-15.1) 11/13/23 02:35 Plt Count 241 10^3/cmm (157-399) 11/13/23 02:35 MPV 10.2 fL (7.4-10.4) 11/13/23 02:35 Neut % (Auto) 60.3 % 11/13/23 02:35 Lymph % (Auto) 31.9 % 11/13/23 02:35 [place] % (Auto) 6.2 % 11/13/23 02:35 Eos % (Auto) 0.8 % 11/13/23 02:35 Baso % (Auto) 0.6 % 11/13/23 02:35 Neut # (Auto) 5.46 10^3/uL (1.8-7.7) 11/13/23 02:35 Lymph # (Auto) 2.9 10^3/uL (0.8-4.8) 11/13/23 02:35 [place] # (Auto) 0.6 10^3/uL (0.2-0.9) 11/13/23 02:35 Eos # (Auto) 0.1 10^3/uL (0.0-0.8) 11/13/23 02:35 Baso # (Auto) 0.1 10^3/uL (0.0-0.1) 11/13/23 02:35 Nucleated RBC % (auto) 0 % 11/13/23 02:35 Nucleated RBCs # 0.0 /100WBC 11/13/23 02:35 Sodium 138 mmol/L (136-145) 11/13/23 02:35 Potassium 4.0 mmol/L (3.5-5.1) 11/13/23 02:35 Chloride 103 mmol/L (98-107) 11/13/23 02:35 Carbon Dioxide 24 mmol/L (22-29) 11/13/23 02:35 Anion Gap 15.0 (5-19) 11/13/23 02:35 BUN 14 mg/dL (6-20) 11/13/23 02:35 Creatinine 0.7 mg/dL (0.7-1.2) 11/13/23 02:35 GFR Calculation 123.1 mL/min (90-130) 11/13/23 02:35 Glucose 156 mg/dL (65-115) H 11/13/23 02:35 Calculated Osmolality 290 mOsm/kg (285-295) 11/13/23 02:35 Calcium 8.9 mg/dL (8.5-10.5) 11/13/23 02:35 Total Bilirubin 0.6 mg/dL (0.15-1.2) 11/13/23 02:35 AST 17 U/L (0-40) 11/13/23 02:35 ALT 20 U/L (0-41) 11/13/23 02:35 Alkaline Phosphatase 74 U/L (40-130) 11/13/23 02:35 Total Protein 7.2 g/dL (6.6-8.7) 11/13/23 02:35 Albumin 4.4 g/dL (3.5-5.2) 11/13/23 02:35 Globulin 2.8 g/dL (1.3-4.6) 11/13/23 02:35 TSH 3.00 uIU/mL (0.27-4.20) 11/13/23 02:35 Urine Color Yellow (Yellow) 11/13/23 02:30 Urine Appearance Clear (CLEAR) 11/13/23 02:30 Urine pH 5.0 (5-7) 11/13/23 02:30 Ur Specific [place] 1.020 (1.005-1.030) 11/13/23 02:30 Urine Protein Negative (Negative) 11/13/23 02:30 Urine Glucose (UA) Negative (Normal) 11/13/23 02:30 Urine Ketones Trace (Negative) 11/13/23 02:30 Urine Blood Negative (Negative) 11/13/23 02:30 Urine Nitrate Negative (Negative) 11/13/23 02:30 Urine Bilirubin Negative (Negative) 11/13/23 02:30 Urine Urobilinogen 1.0 mg/dL (Negative) 11/13/23 02:30 Ur Leukocyte Esterase Negative (Negative) 11/13/23 02:30 Urine RBC 0-2 /hpf (0-2) 11/13/23 02:30 Urine WBC 0-5 /hpf (0-5) 11/13/23 02:30 Ur Squamous Epith Cells 0-5 /hpf (0-5) 11/13/23 02:30 Amorphous Sediment Not Reportable 11/13/23 02:30 Urine Bacteria None seen /hpf (NONE) 11/13/23 02:30 Hyaline Casts 3.30 /lpf 11/13/23 02:30 Salicylates < 0.3 mg/dL (3-10) L 11/13/23 02:35 Urine Opiates Screen Negative ng/mL (Negative) 11/13/23 02:30 Acetaminophen < 5.0 ug/mL (10-30) L 11/13/23 02:35 Ur Barbiturates Screen Negative ng/mL (Negative) 11/13/23 02:30 Ur Phencyclidine Scrn Negative ng/mL (Negative) 11/13/23 02:30 Ur Amphetamines Screen Negative ng/mL (Negative) 11/13/23 02:30 U Benzodiazepines Scrn Negative ng/mL (Negative) 11/13/23 02:30 Urine Cocaine Screen Negative ng/mL (Negative) 11/13/23 02:30 U Marijuana (THC) Screen Positive ng/mL (Negative) H 11/13/23 02:30 Ethyl Alcohol < 10 mg/dL (0-10) 11/13/23 02:35 No radiology studies performed this visit Discharge Plan Discharge Patient Disposition: Admitted As Inpatient Admit Provider: Romel Correa Clinical Impression: Depression, Suicidal ideation Condition: Stable Coding Level of Care Code ED Oem Sales Manager for Jack Reeves
[2023-11-13 03:16] LABS: Bilirubin Urine Negative (Negative); Blood Urine Negative (Negative); Glucose Urine UA Negative (Normal); Ketones Urine Trace (Negative); Leukocyte Esterase Urine Negative (Negative); Nitrate Urine Negative (Negative); Protein Urine Negative (Negative); Urine Appearance Clear (CLEAR); Urine Color Yellow (Yellow)
[2023-11-13 03:20] LABS: Bacteria Urine None Seen /hpf; RBC Urine 0-2 /hpf (0-2); Squamous Epithelial Cell Urine 0-5 /hpf (0-5); WBC Urine 0-5 /hpf (0-5)
[2023-11-13 03:23] LABS: Amphetamines Screen Urine Negative (Negative); Barbiturates Screen Urine Negative (Negative); Benzodiazepines Screen Urine Negative (Negative); Cocaine Screen Urine Negative (Negative); Opiate Screen Urine Negative (Negative); PCP Screen Urine Negative (Negative); THC Screen Urine Positive (Negative)
[2023-11-13 03:27] LABS: Acetaminophen < 5.0 ug/mL (10-30); Alanine Aminotransferase 20 U/L (0-41); Albumin Level 4.4 g/dL (3.5-5.2); Alcohol Level < 10 mg/dL (0-10); Alkaline Phosphatase 74 U/L (40-130); Aspartate Amino Transferase 17 U/L (0-40); Blood Urea Nitrogen 14 mg/dL (6-20); Calcium 8.9 mg/dL (8.5-10.5); Carbon Dioxide 24 mmol/L (22-29); Chloride 103 mmol/L (98-107); Creatinine Clr Calc Pharmacy 211.1397; Globulin 2.8 g/dL (1.3-4.6); Glomerular Filtration Rate 123.1 mL/min (90-130); Glucose 156 mg/dL (65-115); Osmolality Calculated 290 mOsm/kg (285-295); Salicylate < 0.3 mg/dL (3-10); Sodium 138 mmol/L (136-145); Total Bilirubin 0.6 mg/dL (0.15-1.2); Total Protein 7.2 g/dL (6.6-8.7)
--- NOTE | 2023-11-13 03:44 | PC.NURSE ---
[facility] Pt served with copy of 96 [facility] by this RN and security. Pt alert and oriented, calm and cooperative. Pt stated he was unfamiliar with [facility] process and had not been admitted to [facility] before. Questions answered.
--- NOTE | 2023-11-13 14:06 | P.NPUHP_ITS ---
Providers/Chief Complaint 2 Admitting Physician: Romel Correa MD Primary Care Provider: Karen Badillo NP Chief Complaint: MHE HPI NPU History of Present Illness Uziel Chaparro is a 43 year old male who presented to the emergency department with the following report: Chief Complaint: Psychiatric Symptoms Stated Complaint: MHE Time Seen by Provider: 11/13/23 02:57 History of Present Illness: 43-year-old man with history of depression BPPV, type 2 diabetes, hypertension and obesity who presents emergency room with depression and suicidal thoughts. He says he cannot afford his depression meds. No specific plan at this point. He says he wants help. He was admitted to the neuropsychiatric unit for definitive treatment of those issues. He is unknown to psychiatric services at [facility] [place]. He acknowledged past addiction history but only current use of marijuana. He endorsed significant psychosocial stressors and challenges in his life which led to him having suicidal thoughts. He presents today reporting: Chief complaint Patient is experiencing severe depression and suicidal thoughts, triggered by the recent incident of having to put down his daughter's aggressive dog. History of the present complaint The patient, born on [birth year], reported that he has been struggling with mental health issues, particularly depression and anxiety, since the of his father in 1999. His symptoms worsened after the of his mother and then again after his brother due to COVID-19. He mentioned that he has been feeling increasingly frustrated with his daughters and has been struggling with motivation, which has affected his ability to engage in activities with his daughter. He expressed concern about his anger and frustration impacting his relationship with his daughter and his desire to seek help to manage these issues. The patient reported a history of suicidal ideation and a suicide attempt shortly before his divorce in 2009. He also mentioned a recent incident where he had to put down his daughter's dog after it showed aggression, which triggered thoughts of self-harm. He has been experiencing nightmares and flashbacks related to traumatic events in his life, particularly the of his brother. He also reported having sleep issues since childhood, which have been exacerbated by these nightmares and flashbacks. The patient has been on medication for his mental health issues, specifically Zoloft, which was prescribed by his primary care physician. However, he has been unable to afford his medication recently. He reported that he started taking Zoloft in April and last took it in July. He also mentioned being on other medications, including Januvia, Sopro, and Torastatin, for physical health issues. The patient reported a history of substance use, including smoking for over 20 years, which he quit in March of this year. He also reported a history of heavy drinking, which he quit 15 years ago, and occasional cannabis use. He has not received any drug or alcohol treatment or rehab. The patient expressed a desire to get help and manage his mental health issues, particularly for the sake of his daughter, who he described as the only good thing in his life. He expressed fear of losing her and a desire to stop his problems from getting worse. Mental health history Patient has been on Zoloft since April, but stopped taking it in July due to financial constraints. He has been on three different kinds of medication for mental health, all prescribed by his primary care physician. He saw a therapist for couples counseling two years ago but stopped going when his vehicle broke down. He has never been in a psychiatric hospital. Social history Patient quit smoking in March this year after 20+ years of on-and-off smoking. He hasn't drunk alcohol in 15 years, after being a heavy drinker. He uses cannabis but not daily. He has no history of drug and alcohol treatment or rehab. He has a daughter who is 8 years old. He was once, which ended in divorce. He has been living in a rented trailer for four years with his daughter and his brother, who is currently [employer] surfing. 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 Meds NPU Home Medications Medication Instructions Recorded Confirmed Last Taken Type atorvastatin 20 mg tablet (Lipitor) 20 mg PO QAM 03/24/19 11/13/23 06/13/22 History apixaban 5 mg tablet (Eliquis) 5 mg PO BID 10/08/19 11/13/23 06/11/22 21:00 History lisinopril 20 mg tablet 20 mg PO QAM 03/30/21 11/13/23 06/13/22 History multivitamin with minerals (Men's 1 tab PO DAILY 06/28/21 11/13/23 06/13/22 History One Daily tablet) sitagliptin phosphate 25 mg tablet 100 mg PO QAM 10/01/22 11/13/23 Unknown History (Januvia) celecoxib 100 mg capsule (Celebrex) 100 mg PO BID #60 caps 05/15/23 11/13/23 Unknown Rx budesonide-formoterol HFA 80 2 puff inhalation BID #30.6 grams 07/16/23 11/13/23 Unknown Rx mcg-4.5 mcg/actuation aerosol inhaler (Symbicort) Allergies Allergy/AdvReac Type Severity Reaction Status Date / Time rofecoxib [From Vioxx] Allergy Severe anaphalyxis Verified 11/13/23 02:28 nickel Allergy ADR-Itching Verified 11/13/23 02:28 PFSH NPU 2 PFSH: Medical History Bryanna sign present in right knee Recurrent right knee instability Anxiety and depression Obstructive sleep apnea Hyperlipidemia Type 2 diabetes mellitus Ulcerative colitis Recurrent deep vein thrombosis (DVT) Hypertension Nicotine addiction Morbid obesity -BMI-41 kg/m2 Pulmonary embolism Surgical History History of surgery Excision of mass Hx of colonoscopy with polypectomy 2021 History of angioplasty pulmonary artery thrombectomy x 1 and left lower extremity venous thrombolysis x 2 H/O lymph node excision Right inguinal lymph node biopsy, determined to be cat scratch disease Family History Father CAD (coronary artery disease) Diabetes Hypertension Stroke Mother Cancer Diabetes Other Clotting disorder Heart disease Hyperlipidemia Denies family history of Dementia Psychiatric illness Chronic kidney disease (CKD) Suicide Anesthesia complication Bleeding disorder Lung disease Social History Smoking and tobacco/nicotine status: tobacco/nicotine user, details unknown cigarettes Packs smoked per day: 1 Years cigarettes smoked: 24 [ Other cigarette details: Started at age 18] Alcohol intake: former Substance/Drug Use: never Lives independently: Yes Household members: spouse Marital status: Current occupational status: employed 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 No abnormal movements except for psychomotor retardation. Mostly cooperative with exam in mild to moderate distress. Speech was mostly decreased rate and volume. His mood was described as depressed. His affect was congruent. Thought process was linear. Thought content: Patient denied suicidal or homicidal ideations, there were no delusions reported or noted, he did not report auditory or visual hallucinations and did not appear to be attending to internal stimuli. Patient is showing signs of severe depression and suicidal ideation. He has a history of attempting suicide, with the last attempt being in 2009. He also experiences anxiety, which has been a part of his life since 1999 and has worsened with age. He has nightmares and flashbacks about traumatic events in his life, particularly the of his brother. He struggles with motivation and has difficulty managing his time and responsibilities, which leads to frustration. Attention and concentration were limited and memory appeared reliable, but none were formally tested. He was alert and oriented times person and place. Insight, judgment and impulse control were impaired. Vitals/I&O/Wt Last Vital Signs Temp 97.5 F L 11/13/23 04:28 Pulse 70 11/13/23 04:28 Resp 18 11/13/23 04:28 BP 177/97 11/13/23 04:28 Pulse Ox 99 11/13/23 04:28 O2 Del Method Room Air 11/13/23 04:40 Weight last 48 hrs Weight 140.614 kg Data NPU 11/13/23 02:35 11/13/23 02:35 A&P Assessment and plan (1) Depression: (2) Suicidal ideation: (3) PTSD (post-traumatic stress disorder): (4) Cannabis use disorder: Plan This is a 43-year-old white male with a limited history of treatment and history of trauma, depression and significant psychosocial stressors including recently needing to euthanize his daughter's pet. Patient is in a state of severe depression and is at risk of suicide. He has a history of mental health issues, including depression and anxiety, and has been on medication for these conditions. He has also experienced significant life stressors, including the of family members and a divorce. His current living situation and financial constraints are additional stressors that may be contributing to his mental health issues. 1. TO-15 minute med checks 2. Encourage sober living treatment after discharge at the highest level care to which he is willing to commit. 3. Engage patient in individual, group and milieu therapy 4. Restart medication. 5. Work with social work team on access to outpatient services and resources. Involuntary Hold Information 2 96 Hour Hold: 96 Hour Involuntary Admission: Yes 96 Hour Hold Ending Date: 11/19/23 96 Hour Hold Ending Time: 03:27 Attestations NPU 2 Medical Necessity Statement*: Psychiatric hospitalization is medically necessary to prevent access to lethal means, to reevaluate medication and to coordinate a safe discharge.? The patient will be hospitalized for over 2 midnights. Likely length of stay 4-6 days.? Coding Level of Care Code Acute Code for g Fwd Diagnoses Depression F32.9 Suicidal ideation R45.851 PTSD (post-traumatic stress disorder) F43.10 Cannabis use disorder F12.90
[2023-11-14 06:00] VITALS: BP 136/86; PULSE 70; RESP 16; TEMP 36.4; O2SAT 96
--- NOTE | 2023-11-14 09:09 | PC.NURSE ---
UP IN ROOM WALKING AROUND. DENIES PAIN. DENIES SI/HI AND AVH AT THIS TIME. RATES ANXIETY AND DEPRESSION /. REPORTS HE SLEPT GOOD LAST NIGHT. PT STATES GOAL FOR THE DAY IS TO DO GOOD AND DO GOOD. PT IS REQUESTING MIRALAX DUE TO THE HOSPITAL NOT HAVING LINZESS. THIS RN CALLED THE PHARMACY AND PHARMACIST CONFIRMED THAT WE DO NOT HAVE LINZESS. ORDERS RECEIVED FOR MIRALX 17 GRAMS PO PRN BID CONSTIPATION. ALL QUESTIONS ANSWERED AND SUPPORT VOICED.
[2023-11-14] MEDS: escitalopram 10 mg Tablet PO (11:55)
[2023-11-14] MEDS: lisinopril 20 mg Tablet PO (11:55)
[2023-11-14 12:38] LABS: Glucose Point of Care 177 mg/dL (70-110)
[2023-11-14] MEDS: acetaminophen 325 mg Tablet 650 MG PO (13:49)
[2023-11-14 14:00] VITALS: BP 176/105; PULSE 70; RESP 18; TEMP 36.7; O2SAT 95
[2023-11-14 17:34] LABS: Glucose Point of Care 148 mg/dL (70-110)
[2023-11-14 19:45] VITALS: BP 146/89; PULSE 72; RESP 18; TEMP 36.6; O2SAT 95
--- NOTE | 2023-11-14 20:18 | P.NPUPN_ITS ---
Subjective NPU 2 Subjective: He presented today reporting doing better. He is glad to have restarted his medication but we continue to discuss him working with that social work team on viable options for the prescriptions as well as treatment moving forward. He continues to tell a story of some significant challenges in his life specifically dealing with anger management. Significant issues surrounding bereavement and some recent losses but anger seem to be predominant. He denied any side effects to the resumption of medication. Mental Status Exam 2 MSE Comments: This is an obese white male in hospital scrubs with adequate grooming and limited eye contact. No abnormal movements except for psychomotor retardation. Mostly cooperative with exam in mild to moderate distress. Speech was mostly decreased rate and volume. His mood was described as depressed. His affect was congruent. Thought process was linear. Thought content: Patient denied suicidal or homicidal ideations, there were no delusions reported or noted, he did not report auditory or visual hallucinations and did not appear to be attending to internal stimuli. Patient is showing signs of severe depression and suicidal ideation. He has a history of attempting suicide, with the last attempt being in 2009. He also experiences anxiety, which has been a part of his life since 1999 and has worsened with age. He has nightmares and flashbacks about traumatic events in his life, particularly the of his brother. He struggles with motivation and has difficulty managing his time and responsibilities, which leads to frustration. Attention and concentration were limited and memory appeared reliable, but none were formally tested. He was alert and oriented times person and place. Insight, judgment and impulse control were impaired. Vitals/I&O/Wt Last Vital Signs Temp 97.8 F 11/14/23 19:45 Pulse 72 11/14/23 19:45 Resp 18 11/14/23 19:45 BP 146/89 11/14/23 19:45 Pulse Ox 95 11/14/23 19:45 O2 Del Method Room Air 11/14/23 06:00 Weight last 48 hrs Weight 140.614 kg Data NPU 11/13/23 02:35 11/13/23 02:35 A&P Assessment and plan (1) Depression: (2) Suicidal ideation: (3) PTSD (post-traumatic stress disorder): (4) Cannabis use disorder: Plan This is a 43-year-old white male with a limited history of treatment and history of trauma, depression and significant psychosocial stressors including recently needing to euthanize his daughter's pet. Patient is in a state of severe depression and is at risk of suicide. He has a history of mental health issues, including depression and anxiety, and has been on medication for these conditions. He has also experienced significant life stressors, including the of family members and a divorce. His current living situation and financial constraints are additional stressors that may be contributing to his mental health issues. 1. TO-15 minute med checks 2. Encourage sober living treatment after discharge at the highest level care to which he is willing to commit. 3. Engage patient in individual, group and milieu therapy 4. Restarted medication. 5. Work with social work team on access to outpatient services and resources. Involuntary Hold Information 2 96 Hour Hold: 96 Hour Involuntary Admission: Yes 96 Hour Hold Ending Date: 11/19/23 96 Hour Hold Ending Time: 03:27 Attestations NPU 2 Medical Necessity Statement*: Psychiatric hospitalization is medically necessary to prevent access to lethal means, to reevaluate medication and to coordinate a safe discharge.? Likely length of stay 3-5 days.? Coding Level of Care Code Acute Code for Chg Fwd Diagnoses Depression F32.9 Suicidal ideation R45.851 PTSD (post-traumatic stress disorder) F43.10 Cannabis use disorder F12.90
[2023-11-14] MEDS: sertraline 50 mg Tablet PO (20:42)
[2023-11-14] MEDS: apixaban 5 mg Tablet PO (20:42)
[2023-11-14 20:49] LABS: Glucose Point of Care 186 mg/dL (70-110)
[2023-11-15 06:00] VITALS: BP 138/87; PULSE 65; RESP 17; TEMP 36.3; O2SAT 95
[2023-11-15] MEDS: sitagliptin 100 mg Tablet PO (06:40)
[2023-11-15] MEDS: lisinopril 20 mg Tablet PO (06:40)
[2023-11-15 07:44] LABS: Glucose Point of Care 183 mg/dL (70-110)
[2023-11-15] MEDS: atorvastatin 40 mg Tablet 20 MG PO (08:26)
[2023-11-15] MEDS: escitalopram 10 mg Tablet PO (08:26)
[2023-11-15] MEDS: multivitamin therapeutic Tablet 1 TAB PO (08:27)
[2023-11-15] MEDS: apixaban 5 mg Tablet PO ×2 (08:31→20:44)
[2023-11-15 14:00] VITALS: BP 114/77; PULSE 71; RESP 16; TEMP 36.4; O2SAT 98
[2023-11-15 16:34] LABS: Glucose Point of Care 200 mg/dL (70-110)
[2023-11-15 16:34] LABS: Glucose Point of Care 192 mg/dL (70-110)
--- NOTE | 2023-11-15 16:42 | P.NPUPN_ITS ---
Subjective NPU 2 Subjective: Patient presented today reporting that things are going fine. He is tolerating the reinitiation of his medications. He reports that he is continuing to deal with the aftermath of the situation with his daughter's dog. He denied any side effects to the medications and reports he is eating well and sleeping better. Mental Status Exam 2 MSE Comments: This is an obese white male in hospital scrubs with adequate grooming and limited eye contact. No abnormal movements except for psychomotor retardation. Mostly cooperative with exam in mild to moderate distress. Speech was mostly decreased rate and volume. His mood was described as depressed. His affect was congruent. Thought process was linear. Thought content: Patient denied suicidal or homicidal ideations, there were no delusions reported or noted, he did not report auditory or visual hallucinations and did not appear to be attending to internal stimuli. Patient is showing signs of severe depression and suicidal ideation. He has a history of attempting suicide, with the last attempt being in 2009. He also experiences anxiety, which has been a part of his life since 1999 and has worsened with age. He has nightmares and flashbacks about traumatic events in his life, particularly the of his brother. He struggles with motivation and has difficulty managing his time and responsibilities, which leads to frustration. Attention and concentration were limited and memory appeared reliable, but none were formally tested. He was alert and oriented times person and place. Insight, judgment and impulse control were impaired. Vitals/I&O/Wt Last Vital Signs Temp 97.6 F 11/15/23 14:00 Pulse 71 11/15/23 14:00 Resp 16 11/15/23 14:00 BP 114/77 11/15/23 14:00 Pulse Ox 98 11/15/23 14:00 O2 Del Method Room Air 11/15/23 14:00 Data NPU 11/13/23 02:35 11/13/23 02:35 A&P Assessment and plan (1) Depression: (2) Suicidal ideation: (3) PTSD (post-traumatic stress disorder): (4) Cannabis use disorder: Plan This is a 43-year-old white male with a limited history of treatment and history of trauma, depression and significant psychosocial stressors including recently needing to euthanize his daughter's pet. Patient is in a state of severe depression and is at risk of suicide. He has a history of mental health issues, including depression and anxiety, and has been on medication for these conditions. He has also experienced significant life stressors, including the of family members and a divorce. His current living situation and financial constraints are additional stressors that may be contributing to his mental health issues. 1. TO-15 minute med checks 2. Encourage sober living treatment after discharge at the highest level care to which he is willing to commit. 3. Engage patient in individual, group and milieu therapy 4. Restarted medication. 5. Work with social work team on access to outpatient services and resources. Involuntary Hold Information 2 96 Hour Hold: 96 Hour Involuntary Admission: Yes 96 Hour Hold Ending Date: 11/19/23 96 Hour Hold Ending Time: 03:27 Attestations NPU 2 Medical Necessity Statement*: Inpatient hospitalization is medically necessary and the clinically appropriate intervention at this time. We will monitor medications and make changes as indicated. The patient's likely length of stay is 3-5 days. Coding Level of Care Code Acute Code for [facility] Fwd Diagnoses Depression F32.9 Suicidal ideation R45.851 PTSD (post-traumatic stress disorder) F43.10 Cannabis use disorder F12.90
[2023-11-15 20:34] VITALS: BP 155/90; PULSE 71; RESP 18; TEMP 36.6; O2SAT 96
[2023-11-15] MEDS: sertraline 50 mg Tablet PO (20:44)
[2023-11-15 21:08] LABS: Glucose Point of Care 230 mg/dL (70-110)
[2023-11-16 06:00] VITALS: BP 129/83; PULSE 75; RESP 18; TEMP 36.4; O2SAT 96
[2023-11-16] MEDS: lisinopril 20 mg Tablet PO (06:36)
[2023-11-16] MEDS: sitagliptin 100 mg Tablet PO (06:36)
[2023-11-16 07:43] LABS: Glucose Point of Care 158 mg/dL (70-110)
[2023-11-16] MEDS: atorvastatin 40 mg Tablet 20 MG PO (09:11)
[2023-11-16] MEDS: escitalopram 10 mg Tablet PO (09:11)
[2023-11-16] MEDS: apixaban 5 mg Tablet PO ×2 (09:11→20:26)
[2023-11-16] MEDS: multivitamin therapeutic Tablet 1 TAB PO (09:11)
[2023-11-16 11:40] LABS: Glucose Point of Care 133 mg/dL (70-110)
[2023-11-16 14:00] VITALS: BP 141/83; PULSE 71; RESP 18; TEMP 36.5; O2SAT 97
[2023-11-16 17:23] LABS: Glucose Point of Care 147 mg/dL (70-110)
--- NOTE | 2023-11-16 18:21 | P.NPUPN_ITS ---
Subjective NPU 2 Subjective: Patient presented today reporting that he is feeling better and starting to feel more optimistic. He brought up the prospect of discharge and we discussed the likelihood of discharge at the beginning of the week. He denied side effects of the medication. Mental Status Exam 2 MSE Comments: This is an obese white male in hospital scrubs with adequate grooming and limited eye contact. No abnormal movements except for psychomotor retardation. Mostly cooperative with exam in mild to moderate distress. Speech was mostly decreased rate and volume. His mood was described as depressed. His affect was congruent. Thought process was linear. Thought content: Patient denied suicidal or homicidal ideations, there were no delusions reported or noted, he did not report auditory or visual hallucinations and did not appear to be attending to internal stimuli. Patient is showing signs of severe depression and suicidal ideation. He has a history of attempting suicide, with the last attempt being in 2009. He also experiences anxiety, which has been a part of his life since 1999 and has worsened with age. He has nightmares and flashbacks about traumatic events in his life, particularly the of his brother. He struggles with motivation and has difficulty managing his time and responsibilities, which leads to frustration. Attention and concentration were limited and memory appeared reliable, but none were formally tested. He was alert and oriented times person and place. Insight, judgment and impulse control were impaired. Vitals/I&O/Wt Last Vital Signs Temp 98.1 F 11/16/23 19:33 Pulse 79 11/16/23 19:33 Resp 18 11/16/23 19:33 BP 133/85 11/16/23 19:33 Pulse Ox 96 11/16/23 19:33 O2 Del Method Room Air 11/16/23 19:33 Data NPU 11/13/23 02:35 11/13/23 02:35 A&P Assessment and plan (1) Depression: (2) Suicidal ideation: (3) PTSD (post-traumatic stress disorder): (4) Cannabis use disorder: Plan This is a 43-year-old white male with a limited history of treatment and history of trauma, depression and significant psychosocial stressors including recently needing to euthanize his daughter's pet. Patient is in a state of severe depression and is at risk of suicide. He has a history of mental health issues, including depression and anxiety, and has been on medication for these conditions. He has also experienced significant life stressors, including the of family members and a divorce. His current living situation and financial constraints are additional stressors that may be contributing to his mental health issues. 1. TO-15 minute med checks 2. Encourage sober living treatment after discharge at the highest level care to which he is willing to commit. 3. Engage patient in individual, group and milieu therapy 4. Restarted medication. 5. Work with social work team on access to outpatient services and resources. Involuntary Hold Information 2 96 Hour Hold: 96 Hour Involuntary Admission: Yes 96 Hour Hold Ending Date: 11/19/23 96 Hour Hold Ending Time: 03:27 Attestations NPU 2 Medical Necessity Statement*: Inpatient hospitalization is medically necessary and the clinically appropriate intervention at this time. We will monitor medications and make changes as indicated. The patient's likely length of stay is 2-4 days. Coding Level of Care Code Acute Code for g Fwd Diagnoses Depression F32.9 Suicidal ideation R45.851 PTSD (post-traumatic stress disorder) F43.10 Cannabis use disorder F12.90
[2023-11-16 19:33] VITALS: BP 133/85; PULSE 79; RESP 18; TEMP 36.7; O2SAT 96
[2023-11-16 19:47] LABS: Glucose Point of Care 222 mg/dL (70-110)
[2023-11-16] MEDS: sertraline 50 mg Tablet PO (20:26)
[2023-11-17 06:00] VITALS: BP 113/80; PULSE 66; RESP 16; TEMP 36.4; O2SAT 97; BMI 37.4
[2023-11-17 07:51] LABS: Glucose Point of Care 175 mg/dL (70-110)
[2023-11-17] MEDS: lisinopril 20 mg Tablet PO (08:25)
[2023-11-17] MEDS: apixaban 5 mg Tablet PO ×2 (08:26→20:01)
[2023-11-17] MEDS: escitalopram 10 mg Tablet PO (08:26)
[2023-11-17] MEDS: multivitamin therapeutic Tablet 1 TAB PO (08:26)
[2023-11-17] MEDS: sitagliptin 100 mg Tablet PO (08:26)
[2023-11-17] MEDS: atorvastatin 40 mg Tablet 20 MG PO (08:26)
[2023-11-17 12:33] LABS: Glucose Point of Care 191 mg/dL (70-110)
[2023-11-17 14:00] VITALS: BP 147/91; PULSE 77; RESP 17; TEMP 36.6; O2SAT 98
[2023-11-17 16:52] LABS: Glucose Point of Care 177 mg/dL (70-110)
--- NOTE | 2023-11-17 19:08 | W.PM.NPUPNS ---
Subjective NPU Subjective: Patient presented today reporting that things are fine. He reports that he thinks he is going to be ready for discharge tomorrow and is very pleased with the idea that we will be giving him a 30-day supply of medication and he will have resource discussions with the social work team tomorrow. He denied any side effects to the medication and we discussed a tentative plan for discharge in the morning. Mental Status Exam MSE Comments: This is an obese white male in hospital scrubs with adequate grooming and eye contact. No abnormal movements. Cooperative with exam in no acute distress. Speech was normal rate and volume. His mood was described as feeling better. His affect was congruent. Thought process was linear. Thought content: Patient denied suicidal or homicidal ideations, there were no delusions reported or noted, he did not report auditory or visual hallucinations and did not appear to be attending to internal stimuli. Attention and concentration were intact and memory appeared reliable, but none were formally tested. He was alert and oriented times 3. Insight, judgment and impulse control were improving. Vitals/I&O/Wt Last Vital Signs Temp 97.9 F 11/17/23 14:00 Pulse 77 11/17/23 14:00 Resp 17 11/17/23 14:00 BP 147/91 11/17/23 14:00 Pulse Ox 98 11/17/23 14:00 O2 Del Method Room Air 11/17/23 06:00 11/17/23 11/17/23 11/17/23 06:59 14:59 22:59 Intake Total 600 / 600 Balance 600 / 600 Weight last 48 hrs Weight 143.335 kg Data NPU 11/13/23 02:35 11/13/23 02:35 A&P Assessment and plan (1) Depression: (2) Suicidal ideation: (3) PTSD (post-traumatic stress disorder): (4) Cannabis use disorder: Plan This is a 43-year-old white male with a limited history of treatment and history of trauma, depression and significant psychosocial stressors including recently needing to euthanize his daughter's pet. Patient is in a state of severe depression and is at risk of suicide. He has a history of mental health issues, including depression and anxiety, and has been on medication for these conditions. He has also experienced significant life stressors, including the of family members and a divorce. His current living situation and financial constraints are additional stressors that may be contributing to his mental health issues. 1. TO-15 minute med checks 2. Encourage sober living treatment after discharge at the highest level care to which he is willing to commit. 3. Engage patient in individual, group and milieu therapy 4. Restarted medication. 5. Work with social work team on access to outpatient services and resources. 6. Tentative plan for discharge tomorrow. Involuntary Hold Information 96 Hour Hold: 96 Hour Involuntary Admission: Yes 96 Hour Hold Ending Date: 11/19/23 96 Hour Hold Ending Time: 03:27 Attestations NPU Medical Necessity Statement*: Inpatient hospitalization is medically necessary and the clinically appropriate intervention at this time. We will monitor medications and make changes as indicated. The patient's likely length of stay is 1-3 days. Coding Level of Care Code Acute Code for [facility] Fwd Diagnoses Depression F32.9 Suicidal ideation R45.851 PTSD (post-traumatic stress disorder) F43.10 Cannabis use disorder F12.90
[2023-11-17] MEDS: sertraline 50 mg Tablet PO (20:01)
[2023-11-17 20:06] LABS: Glucose Point of Care 249 mg/dL (70-110)
[2023-11-17 21:52] VITALS: BP 136/96; PULSE 84; RESP 16; TEMP 37.2; O2SAT 94
[2023-11-18 06:00] VITALS: BP 145/82; PULSE 80; RESP 17; TEMP 36.6; O2SAT 93
[2023-11-18 07:26] LABS: Glucose Point of Care 167 mg/dL (70-110)
[2023-11-18] MEDS: sitagliptin 100 mg Tablet PO (08:50)
[2023-11-18] MEDS: multivitamin therapeutic Tablet 1 TAB PO (08:50)
[2023-11-18] MEDS: lisinopril 20 mg Tablet PO (08:50)
[2023-11-18] MEDS: apixaban 5 mg Tablet PO (08:50)
[2023-11-18] MEDS: escitalopram 10 mg Tablet PO (08:50)
[2023-11-18] MEDS: atorvastatin 40 mg Tablet 20 MG PO (08:50)
[2023-11-18 11:21] LABS: Glucose Point of Care 189 mg/dL (70-110)
[2023-11-18 14:00] VITALS: BP 131/84; PULSE 87; RESP 16; TEMP 36.6; O2SAT 96
--- NOTE | 2023-11-18 16:09 | P.NPUDS_ITS ---
Diagnoses at Discharge Discharge Diagnosis (1) Depression: Status: Acute (2) Suicidal ideation: Status: Acute (3) PTSD (post-traumatic stress disorder): Status: Acute (4) Cannabis use disorder: Status: Acute Reason for Visit Reason for Visit: [facility] Involuntary Hold Information 96 Hour Hold: 96 Hour Involuntary Admission: Yes 96 Hour Hold Ending Date: 11/19/23 96 Hour Hold Ending Time: 03:27 Mental Status Exam MSE Comments: This is an obese white male in hospital scrubs with adequate grooming and eye contact. No abnormal movements. Cooperative with exam in no acute distress. Speech was normal rate and volume. His mood was described as feeling better. His affect was congruent. Thought process was linear. Thought content: Patient denied suicidal or homicidal ideations, there were no delusions reported or noted, he did not report auditory or visual hallucinations and did not appear to be attending to internal stimuli. Attention and concentration were intact and memory appeared reliable, but none were formally tested. He was alert and oriented times 3. Insight, judgment and impulse control were improving. Discharge Data Studies Completed and Pending: Laboratory Results WBC 9.04 10^3/uL (3.2 9-11.43) 11/13/23 02:35 RBC 5.16 10^6/uL (3.8 5-5.65) 11/13/23 02:35 Hgb 14.60 g/dL (11.27 -16.99) 11/13/23 02:35 Hct 44.2 % (37-53) 11/13/23 02:35 MCV 85.7 fl (82-101) 11/13/23 02:35 MCH 28.3 pg (27-33) 11/13/23 02:35 MCHC 33.0 g/dL (30-55) 11/13/23 02:35 RDW 13.3 % (12.1-15.1 ) 11/13/23 02:35 Plt Count 241 10^3/cmm (157 -399) 11/13/23 02:35 MPV 10.2 fL (7.4-10.4 ) 11/13/23 02:35 Neut % (Auto) 60.3 % 11/13/23 02:35 Lymph % (Auto) 31.9 % 11/13/23 02:35 [place] % (Auto) 6.2 % 11/13/23 02:35 Eos % (Auto) 0.8 % 11/13/23 02:35 Baso % (Auto) 0.6 % 11/13/23 02:35 Neut # (Auto) 5.46 10^3/uL (1.8 -7.7) 11/13/23 02:35 Lymph # (Auto) 2.9 10^3/uL (0.8- 4.8) 11/13/23 02:35 [place] # (Auto) 0.6 10^3/uL (0.2- 0.9) 11/13/23 02:35 Eos # (Auto) 0.1 10^3/uL (0.0- 0.8) 11/13/23 02:35 Baso # (Auto) 0.1 10^3/uL (0.0- 0.1) 11/13/23 02:35 Nucleated RBC % (a uto) 0 % 11/13/23 02:35 Nucleated RBCs # 0.0 /100WBC 11/13/23 02:35 Sodium 138 mmol/L (136-1 45) 11/13/23 02:35 Potassium 4.0 mmol/L (3.5-5 .1) 11/13/23 02:35 Chloride 103 mmol/L (98-10 7) 11/13/23 02:35 Carbon Dioxide 24 mmol/L (22-29) 11/13/23 02:35 Anion Gap 15.0 (5-19) 11/13/23 02:35 BUN 14 mg/dL (6-20) 11/13/23 02:35 Creatinine 0.7 mg/dL (0.7-1. 2) 11/13/23 02:35 GFR Calculation 123.1 mL/min (90- 130) 11/13/23 02:35 Glucose 156 mg/dL (65-115 ) H 11/13/23 02:35 POC Glucose 189 mg/dL (70-110 ) H 11/18/23 11:18 Calculated Osmolal ity 290 mOsm/kg (285- 295) 11/13/23 02:35 Calcium 8.9 mg/dL (8.5-10 .5) 11/13/23 02:35 Total Bilirubin 0.6 mg/dL (0.15-1 .2) 11/13/23 02:35 AST 17 U/L (0-40) 11/13/23 02:35 ALT 20 U/L (0-41) 11/13/23 02:35 Alkaline Phosphata se 74 U/L (40-130) 11/13/23 02:35 Total Protein 7.2 g/dL (6.6-8.7 ) 11/13/23 02:35 Albumin 4.4 g/dL (3.5-5.2 ) 11/13/23 02:35 Globulin 2.8 g/dL (1.3-4.6 ) 11/13/23 02:35 TSH 3.00 uIU/mL (0.27 -4.20) 11/13/23 02:35 Urine Color Yellow (Yellow) 11/13/23 02:30 Urine Appearance Clear (CLEAR) 11/13/23 02:30 Urine pH 5.0 (5-7) 11/13/23 02:30 Ur Specific Gravit y 1.020 (1.005-1.0 30) 11/13/23 02:30 Urine Protein Negative (Negati ve) 11/13/23 02:30 Urine Glucose (UA) Negative (Normal ) 11/13/23 02:30 Urine Ketones Trace (Negative) 11/13/23 02:30 Urine Blood Negative (Negati ve) 11/13/23 02:30 Urine Nitrate Negative (Negati ve) 11/13/23 02:30 Urine Bilirubin Negative (Negati ve) 11/13/23 02:30 Urine Urobilinogen 1.0 mg/dL (Negati ve) 11/13/23 02:30 Ur Leukocyte Samantha ase Negative (Negati ve) 11/13/23 02:30 Urine RBC 0-2 /hpf (0-2) 11/13/23 02:30 Urine WBC 0-5 /hpf (0-5) 11/13/23 02:30 Ur Squamous Epith Cells 0-5 /hpf (0-5) 11/13/23 02:30 Amorphous Sediment Not Reportable 11/13/23 02:30 Urine Bacteria None seen /hpf (N ONE) 11/13/23 02:30 Hyaline Casts 3.30 /lpf 11/13/23 02:30 Salicylates < 0.3 mg/dL (3-10 ) L 11/13/23 02:35 Urine Opiates Scre en Negative ng/mL (N egative) 11/13/23 02:30 Acetaminophen < 5.0 ug/mL (10-3 0) L 11/13/23 02:35 Ur Barbiturates Sc reen Negative ng/mL (N egative) 11/13/23 02:30 Ur Phencyclidine S crn Negative ng/mL (N egative) 11/13/23 02:30 Ur Amphetamines Sc reen Negative ng/mL (N egative) 11/13/23 02:30 U Benzodiazepines Scrn Negative ng/mL (N egative) 11/13/23 02:30 Urine Cocaine Scre en Negative ng/mL (N egative) 11/13/23 02:30 U Marijuana (THC) Screen Positive ng/mL (N egative) H 11/13/23 02:30 Ethyl Alcohol < 10 mg/dL (0-10) 11/13/23 02:35 Vitals: Last Vital Signs Temp 97.9 F 11/18/23 14:00 Pulse 87 11/18/23 14:00 Resp 16 11/18/23 14:00 BP 131/84 11/18/23 14:00 Pulse Ox 96 11/18/23 14:00 O2 Del Method Room Air 11/18/23 14:00 Discharge Plan Discharge Patient Disposition: Home Condition: Stable Prescriptions: Continued budesonide-formoterol [Symbicort] 80-4.5 mcg/actuation HFA aerosol inhaler 2 puff inhalation BID Qty: 30.6 3RF Men's One Daily Tablet 1 tab PO DAILY atorvastatin 20 mg tablet 20 mg PO QAM 30 Days Qty: 30 1RF lisinopril 20 mg Tablet 20 mg PO QAM 30 Days Qty: 30 1RF sertraline 50 mg tablet 50 mg PO DAILY 30 Days Qty: 30 1RF escitalopram oxalate 10 mg tablet 10 mg PO DAILY 30 Days Qty: 30 1RF Januvia 25 mg tablet 100 mg PO QAM 30 Days Qty: 120 1RF Eliquis 5 mg tablet 5 mg PO BID 30 Days Qty: 60 1RF Discontinued celecoxib [Celebrex] 100 mg capsule 100 mg PO BID Qty: 60 2RF Discharge Orders: Discharge Order (Routine); Ordered 11/18/23 Ordered By: Romel Correa Referrals: [facility] [Outside] - 11/25/23 8:30 am (Initial assessment for services with Rima) Karen Badillo, CANAL STRUCTURE OPERATOR [Primary Care Provider] - Discharge Diet: Diabetic Discharge Activity: Resume usual activity Patient Instructions: Opioid Safety Discharge Attestations NPU Time Spent in Discharge Care*: less than 30 min Specific Discharge Activities: Specific discharge activities: educating patient, discussing with outpatient case manager/social workers/dc planners, documenting/other paperwork and evaluating patient/reviewing data Status at Discharge: Cognitive status at discharge: cognitively intact , Behavioral status at discharge: cooperative , Coding Level of Care Code Acute Code for [facility] Fwd Diagnoses Depression F32.9 Suicidal ideation R45.851 PTSD (post-traumatic stress disorder) F43.10 Cannabis use disorder F12.90
[2023-11-18 16:23] VITALS: BP 131/84; PULSE 87; RESP 16; TEMP 36.6; O2SAT 96
== END 2023-11-18 17:00 | disposition home or self-care (01) | DRG 881 ==
LOC: ER 03:15 → NP 04:30
PROVIDERS: Admitting Provider Psychiatry & Neurology Psychiatry; Emergency Provider Emergency Medicine; PCP Nurse Practitioner Family; Visit Provider Psychiatry & Neurology Psychiatry
DX: F32.A Depression, unspecified (principal); R45.851 Suicidal ideations; H81.10 Benign paroxysmal vertigo, unspecified ear; E11.9 Type 2 diabetes mellitus without complications; E66.9 Obesity, unspecified; F41.9 Anxiety disorder, unspecified; G47.33 Obstructive sleep apnea (adult) (pediatric); E78.5 Hyperlipidemia, unspecified; I10 Essential (primary) hypertension; F17.210 Nicotine dependence, cigarettes, uncomplicated; F43.10 Post-traumatic stress disorder, unspecified; F12.90 Cannabis use, unspecified, uncomplicated; Z68.37 Body mass index [BMI] 37.0-37.9, adult; Z91.148 Patient's other noncompliance with medication regimen for other reason; Z86.718 Personal history of other venous thrombosis and embolism; Z86.711 Personal history of pulmonary embolism
CPT/HCPCS: 36416; 80053; 80306; 80307; 81001; 82962; 84443; 85025; 93005; 97150; 97165; 99285

== ENCOUNTER → 2024-11-12 12:56 | Outpatient (BNVA) | payer MEDICAID, SELFPAY | PROVIDERS: PCP Nurse Practitioner Family; Visit Provider Nurse Practitioner Psychiatric/Mental Health | DX: Z79.899 Other long term (current) drug therapy (principal) | CPT/HCPCS: 80053; 80164 ==

== ENCOUNTER → 2024-12-02 09:12 | Outpatient (BNVA) | payer MEDICAID, SELFPAY | PROVIDERS: PCP Nurse Practitioner Family; Visit Provider Nurse Practitioner Psychiatric/Mental Health | DX: F43.12 Post-traumatic stress disorder, chronic (principal); Z79.899 Other long term (current) drug therapy | CPT/HCPCS: 80061; 83036 ==